=== PATIENT | female | born 1960 | race Caucasian/White ===

== ENCOUNTER 2019-07-30 15:32 | Emergency (ER) | payer OTHER, SELFPAY | END 2019-07-30 19:00 | disposition home or self-care (01) | PROVIDERS: Family Provider Student in an Organized Health Care Education/Training Program | DX: J18.1 Lobar pneumonia, unspecified organism (principal); E86.0 Dehydration; I25.2 Old myocardial infarction; E11.9 Type 2 diabetes mellitus without complications; I10 Essential (primary) hypertension; Z86.73 Personal history of transient ischemic attack (TIA), and cerebral infarction without residual deficits; Z95.1 Presence of aortocoronary bypass graft; Z87.891 Personal history of nicotine dependence | CPT/HCPCS: 36415; 71045; 80053; 81003; 85025; 96365; 96375; 99284; J0696; J1100 ==

== ENCOUNTER 2019-09-02 05:21 | Inpatient (IN) | payer OTHER, SELFPAY ==
[2019-09-02] VITALS (54 sets, daily range): BP systolic 103–164; BP diastolic 59–110; PULSE 89–113; RESP 4–24; TEMP 36.6–37.1; O2SAT 90–100; BMI 38.2
--- NOTE | 2019-09-02 05:35 | XRR_ITS ---
PROCEDURE INFORMATION: Exam: XR Right Tibia and Fibula Exam date and time: 09/02/2019 6:07 AM Age: 59 years old Clinical indication: Injury or trauma; Injury history: Not specified; Initial encounter; Blunt trauma; Lower leg; Right TECHNIQUE: Imaging protocol: XR Right tibia and fibula. Views: 2 views. COMPARISON: No relevant prior studies available. FINDINGS: Bones/joints: Obliquely oriented mildly comminuted fracture involving the distal tibial diaphysis with approximately 1/2 shaft width displacement. Distal fibular diaphyseal fracture with a full shaft width displacement. Comminuted fracture involving the proximal aspect of the fibula and with mild displacement. Soft tissues: Normal. XR/XR tibia fibula RT 2V [id number] IMPRESSION: 1. Obliquely oriented mildly comminuted fracture involving the distal tibial diaphysis with approximately 1/2 shaft width displacement. 2. Distal fibular diaphyseal fracture with a full shaft width displacement. Comminuted fracture involving the proximal aspect of the fibula and with mild displacement.
--- NOTE | 2019-09-02 05:37 | ECG_ITS ---
Measurements Intervals [place] Rate: 94 P: 74 MO: 214 QRS: -6 QRSD: 148 T: 126 QT: 357 QTc: 448 SINUS RHYTHM WITH FIRST DEGREE AV BLOCK INTRAVENTRICULAR CONDUCTION DELAY [130+ ms QRS DURATION] No previous ECG available for comparison Possible old inferior wall [place]. Poor R wave progression. Nonspecific ST-T changes in the high lateral leads Electronically Signed On 09-02-2019 15:44:28 TRAFFIC DIRECTOR by Juliette Gallardo M.D. [email or web address]
--- NOTE | 2019-09-02 05:56 | ED_ITS ---
HPI - Extremity Problem General: Chief complaint: Extremity Injury, Lower Stated complaint: OPEN FRACTURE Time Seen by Provider: 09/02/19 05:28 Source: patient History of Present Illness: HPI Narrative: 59-year-old female who fell at home on her way to the bathroom. She sustained an injury to her right lower extremity. It appears to be an open fracture. She has had some pain medicine in the ambulance with improvement in her pain, but it is still significant. Complaint: extremity pain Onset (ago): minute(s) Location: right Severity scale (1-10): 8 Quality: stabbing Associated symptoms: Deny chest pain, fever(s) or rash Review of Systems Const: Denies: fever or chills Eyes: Denies: change in vision or blurry vision Card: Denies: chest pain, palpitations, irregular heart rhythm, edema, swelling of feet/ankles, shortness of breath on exertion or shortness of breath when lying down Resp: Denies: shortness of breath, productive cough, non-productive cough or wheezing GI: Denies: abdominal pain, nausea, vomiting or rectal pain : Denies: painful urination, urinary frequency, urinary urgency or blood in urine Musc: Denies: neck pain or back pain Skin/Breast: Denies: rash, itching or redness Neuro: Denies: headache, dizziness, vertigo or confusion Psych: Denies: anxiety PFSH ED PFSH: Statuses (acute, chronic, etc) shown below reflect problem list status as previously entered and may not be historically accurate Medical History Atherosclerotic heart disease of [place] coronary artery without angina pectoris (Acute) Chronic back pain (Acute) Coronary artery disease (Acute) CVA (cerebral vascular accident) (Acute) Diabetes mellitus (Acute) DJD (degenerative joint disease) (Acute) Hyperlipidemia (Acute) Hypertension (Acute) Surgical History History of coronary artery bypass graft (Acute) Family History Other CAD (coronary artery disease) Social History Smoking and tobacco status: former smoker Alcohol intake: never Substance/Drug Use: never Physical Exam Const: GENERAL APPEARANCE: well developed ORIENTATION/CONSCIOUSNESS: Yes oriented to person, Yes oriented to place and Yes oriented to time HENMT: COMMON NORMALS: normocephalic, external ears normal and external nose normal HEAD & SCALP: normocephalic; no scalp tenderness FACE & SINUS: normal facial exam NOSE: external nose normal and no nasal discharge EXTERNAL EAR: Yes external ears normal MOUTH: tongue normal THROAT: posterior oropharynx normal Eye: COMMON NORMALS: PERRL, EOMs intact bilaterally and conjunctivae normal EYELID: eyelids normal CONJUNCTIVA: Yes conjunctivae normal PUPIL: Yes PERRL Neck/C-Spine: GENERAL: No tracheal deviation CERVICAL SPINE: Yes normal cervical lordosis and No cervical spine tenderness Chest: COMMONS NORMALS: inspection of chest normal CHEST: No tenderness Resp: COMMON NORMALS: clear to auscultation bilaterally EFFORT & INSPECTION: No tachypneic, No respiratory distress, No retractions, No uses accessory muscles and No tracheal deviation AUSCULTATION: clear to auscultation bilaterally, no rhonchi, no wheezes and lung sounds not diminished Cardio: COMMON NORMALS: regular rate and regular rhythm RATE: regular rate RHYTHM: regular rhythm HEART SOUNDS: no murmurs PERIPHERAL PULSES: radial pulses present GI: INSPECTION: No abdominal distension AUSCULTATION: No hyperactive bowel sounds and No hypoactive bowel sounds PALPATION: No guarding and No rigid PERCUSSION: no dullness to percussion and no tympanic to percussion : COMMON NORMALS: Yes no CVA tenderness BLADDER/KIDNEY EXAM: Yes no CVA tenderness Back/Pelvis: COMMON NORMALS: no CVA tenderness Extremity: NARRATIVE EXTREMITY EXAM: Right lower extremity pain, swelling, and deformity over the distal third of the tibia. There is a 5 cm laceration anteriorly consistent with an open fracture. Neuro: SENSORIUM/ORIENTATION: Yes oriented to person, Yes oriented to place and Yes oriented to time Psych: COMMON NORMALS: mental status grossly normal Skin: COMMON NORMALS: no rashes or lesions noted GENERAL SKIN EXAM: no rashes or lesions noted Course Consultations: Consultation #1: yasmin Consultation #2: elly Vital Signs: Vital signs: Vital Signs Temperature 98 F 09/02/19 09:45 Pulse Rate 105 H 09/02/19 17:45 Respiratory Rate 15 09/02/19 19:16 Blood Pressure 162/88 09/02/19 17:45 Pulse Oximetry 96 09/02/19 19:16 MDM - Extremity (Nontraumatic) Lab Data: Labs: Lab Results 09/02/19 09/02/19 09/02/19 Range/Units 05:35 06:20 06:20 WBC 9.3 (4.0-10.0) 10^3/ uL RBC 3.61 L (4.1-5.3) 10^6/u L Hgb 10.8 L (11.5-15.3) g/dL Hct 34.0 L (37.0-47.0) % MCV 94.2 (81-99) fL MCH 29.9 (28.0-34.0) pg MCHC 31.8 (30.0-36.0) g/dL RDW 15.7 H (12.1-15.1) % Plt Count 150 (130-400) 10^3/c mm MPV 11.0 H (7.4-10.4) fL Neut % (Auto) 78.0 % Lymph % (Auto) 12.6 % Granite % (Auto) 4.5 % Eos % (Auto) 3.8 % Baso % (Auto) 0.9 % Neut # (Auto) 7.2 (1.8-7.7) 10^3/u L Lymph # (Auto) 1.2 (0.8-4.8) 10^3/u L Granite # (Auto) 0.4 (0.2-0.9) 10^3/u L Eos # (Auto) 0.4 (0.0-0.8) 10^3/u L Baso # (Auto) 0.1 (0.0-0.1) 10^3/u L Nucleated RBC % (a uto) 0 % Nucleated RBCs # 0.0 /100WBC PT 14.60 H (10.5-13.3) SECO NDS INR 1.11 (0.8-1.2) APTT 27.3 (23.9-36.7) SECO NDS Sodium (136-145) mmol/L Potassium (3.5-5.1) mmol/L Chloride (98-107) mmol/L Carbon Dioxide (22-29) mmol/L Anion Gap (5-19) BUN (6-20) mg/dL Creatinine (0.5-0.9) mg/dL GFR Calculation (90-130) mL/min Glucose (74-109) mg/dL Calcium (8.5-10.5) mg/dL Total Bilirubin (0.15-1.2) mg/dL AST (0-32) U/L ALT (0-33) U/L Alkaline Phosphata se (35-105) IU/L Total Protein (6.6-8.7) g/dL Albumin (3.5-5.2) g/dL Globulin (1.3-4.6) g/dL Urine Color Yellow (Yellow) Urine Appearance Hazy A (CLEAR) Urine pH 5 (5-7) Ur Specific Gravit y 1.010 (1.005-1.030) Urine Protein Neg (Negative) Urine Glucose (UA) 4+ H (Normal) Urine Ketones 1+ H (Negative) Urine Occult Blood 3+ H (Negative) Urine Nitrate Negative (Negative) Urine Bilirubin 1+ H (NEGATIVE) Urine Urobilinogen Norm (Negative) mg/dL Ur Leukocyte Guerita ase 1+ H (Negative) Urine RBC 10-15 H (0-2) /hpf Urine WBC 55-80 H (0-5) /hpf Ur Squamous Epith Cells 10-15 H (0-5) Urine Bacteria 3+ H (NONE) Hyaline Casts Rare Urine Mucus Trace 09/02/19 Range/Units 06:20 WBC (4.0-10.0) 10^3/ uL RBC (4.1-5.3) 10^6/u L Hgb (11.5-15.3) g/dL Hct (37.0-47.0) % MCV (81-99) fL MCH (28.0-34.0) pg MCHC (30.0-36.0) g/dL RDW (12.1-15.1) % Plt Count (130-400) 10^3/c mm MPV (7.4-10.4) fL Neut % (Auto) % Lymph % (Auto) % Granite % (Auto) % Eos % (Auto) % Baso % (Auto) % Neut # (Auto) (1.8-7.7) 10^3/u L Lymph # (Auto) (0.8-4.8) 10^3/u L Granite # (Auto) (0.2-0.9) 10^3/u L Eos # (Auto) (0.0-0.8) 10^3/u L Baso # (Auto) (0.0-0.1) 10^3/u L Nucleated RBC % (a uto) % Nucleated RBCs # /100WBC PT (10.5-13.3) SECO NDS INR (0.8-1.2) APTT (23.9-36.7) SECO NDS Sodium 132 L (136-145) mmol/L Potassium 7.3 H* (3.5-5.1) mmol/L Chloride 98 (98-107) mmol/L Carbon Dioxide 23 (22-29) mmol/L Anion Gap 18.3 (5-19) BUN 57 H (6-20) mg/dL Creatinine 2.9 H (0.5-0.9) mg/dL GFR Calculation 16.7 L (90-130) mL/min Glucose 323 H (74-109) mg/dL Calcium 9.0 (8.5-10.5) mg/dL Total Bilirubin 0.7 (0.15-1.2) mg/dL AST 36 H (0-32) U/L ALT 14 (0-33) U/L Alkaline Phosphata se 86 (35-105) IU/L Total Protein 7.0 (6.6-8.7) g/dL Albumin 3.8 (3.5-5.2) g/dL Globulin 3.2 (1.3-4.6) g/dL Urine Color (Yellow) Urine Appearance (CLEAR) Urine pH (5-7) Ur Specific Gravit y (1.005-1.030) Urine Protein (Negative) Urine Glucose (UA) (Normal) Urine Ketones (Negative) Urine Occult Blood (Negative) Urine Nitrate (Negative) Urine Bilirubin (NEGATIVE) Urine Urobilinogen (Negative) mg/dL Ur Leukocyte Guerita ase (Negative) Urine RBC (0-2) /hpf Urine WBC (0-5) /hpf Ur Squamous Epith Cells (0-5) Urine Bacteria (NONE) Hyaline Casts Urine Mucus Discharge Plan Discharge Patient Disposition: Admitted As Inpatient Admit Provider: Lisa Gasca Clinical Impression: Fracture of tibia and fibula, open Condition: Stable Interventions: ED Discharge Assessment Last Done: 09/02/19 08:42 Discharge Date/Time: 09/02/19 08:44 Coding Level of Care Code ED Cement Tester Assistant for Brandy Tejada
[2019-09-02] MEDS: HYDROmorphone 1 mg/mL INJ 1 mL IVP ×2 (06:03→22:22)
--- NOTE | 2019-09-02 06:20 | XRR_ITS ---
PROCEDURE INFORMATION: Exam: XR Chest, 1 View Exam date and time: 09/02/2019 6:51 AM Age: 59 years old Clinical indication: Pre-operative exam; Cardiovascular screening and respiratory screening exam; Prior surgery; Surgery date: 6+ months; Surgery type: Cabg; Additional info: Clearance TECHNIQUE: Imaging protocol: XR of the chest Views: 1 view. COMPARISON: CR Chest 1 [place] [id number] 07/30/2019 4:44 PM FINDINGS: Lungs: Lungs are well aerated without a focal area of consolidation. Pleural space: Unremarkable. No pleural effusion. No pneumothorax. Heart/Mediastinum: Unremarkable. No cardiomegaly. Bones/joints: prior sternotomy. XR/XR chest 1V portable [id number] IMPRESSION: Lungs are well aerated without a focal area of consolidation.
[2019-09-02 06:27] LABS: Basophils # 0.1 10^3/uL (0.0-0.1); Basophils % 0.9 %; Eosinophils # 0.4 10^3/uL (0.0-0.8); Eosinophils % 3.8 %; Hemoglobin 10.8 g/dL (11.5-15.3); Lymphocytes # 1.2 10^3/uL (0.8-4.8); Lymphocytes % 12.6 %; Mean Corpuscular HGB Conc 31.8 g/dL (30.0-36.0); Mean Corpuscular Hemoglobin 29.9 pg (28.0-34.0); Mean Corpuscular Volume 94.2 fL (81-99); Monocytes # 0.4 10^3/uL (0.2-0.9); Monocytes % 4.5 %; Neutrophils # 7.2 10^3/uL (1.8-7.7); Nucleated Red Blood Cells % 0 %; Platelet Count 150 10^3/cmm (130-400); Red Blood Count 3.61 10^6/uL (4.1-5.3); Red Cell Distribution Width 15.7 % (12.1-15.1); White Blood Count 9.3 10^3/uL (4.0-10.0)
[2019-09-02 06:36] LABS: INR 1.11 (0.8-1.2)
[2019-09-02 06:37] LABS: Protein Urine Neg (Negative); Urine Appearance Hazy (CLEAR); Urine Color Yellow (Yellow); pH Urine 5 (5-7)
[2019-09-02 06:37] LABS: Partial Thromboplastin Time 27.3 SECONDS (23.9-36.7)
[2019-09-02 06:38] LABS: Add Urine Microscopic? YES; Bilirubin Urine 1+ (NEGATIVE); Blood Urine 3+ (Negative); Glucose Urine UA 4+ (Normal); Ketones Urine 1+ (Negative); Leukocyte Esterase Urine 1+ (Negative); Nitrate Urine Negative (Negative); Urobilinogen Urine Norm (Negative)
[2019-09-02 06:41] LABS: Alanine Aminotransferase 14 U/L (0-33); Albumin Level 3.8 g/dL (3.5-5.2); Alkaline Phosphatase 86 IU/L (35-105); Anion Gap 18.3 (5-19); Aspartate Amino Transferase 36 U/L (0-32); Blood Urea Nitrogen 57 mg/dL (6-20); Carbon Dioxide 23 mmol/L (22-29); Chloride 98 mmol/L (98-107); Globulin 3.2 g/dL (1.3-4.6); Glomerular Filtration Rate 16.7 mL/min (90-130); Glucose 323 mg/dL (74-109); Sodium 132 mmol/L (136-145); Total Bilirubin 0.7 mg/dL (0.15-1.2)
[2019-09-02 06:42] LABS: Potassium 7.3 mmol/L (3.5-5.1)
[2019-09-02 06:42] LABS: Hyaline Casts Urine RARE; Mucus Urine TRACE
[2019-09-02 06:45] LABS: Add Urine Culture? Yes; Bacteria Urine 3+; WBC Urine 55-80 /hpf (0-5)
[2019-09-02 07:26] LABS: Anion Gap 16.6 (5-19); Blood Urea Nitrogen 57 mg/dL (6-20); Calcium 8.9 mg/dL (8.5-10.5); Carbon Dioxide 25 mmol/L (22-29); Chloride 99 mmol/L (98-107); Glomerular Filtration Rate 17.4 mL/min (90-130); Glucose 347 mg/dL (74-109); Osmolality Calculated 288 mOsm/kg (285-295); Sodium 133 mmol/L (136-145)
[2019-09-02] MEDS: morphine 4 mg/mL SDV 1 mL IVP (07:28)
--- NOTE | 2019-09-02 07:42 | P.HP_ITS ---
Providers/Chief Complaint Admitting Physician: Lisa Gasca MD Primary Care Provider: Efrain Campo Chief Complaint: OPEN FRACTURE History of Present Illness Minnie Madrid is a 59 year old female who presented to the emergency department with an open fracture of her right lower extremity. She is received pain medication, which it impairs her history quite a great amount. Son-in-law is present and can supplement this somewhat. Patient reports she was on her way to the bathroom when she fell. She cannot really tell me why but does not believe she lost consciousness. She denies any chest discomfort with the event. She reports she sustained a fracture there but is not sure exactly how. She reports she has frequent falls secondary to her medical conditions. She reports she has had chest discomfort in the past, with her last episode about a month ago. She sees Dr. Gallardo is her small arms repairer and he was intending on a nuclear stress test at some point but this was delayed secondary to a respiratory illness in the last month. She reports no fevers in the last week. She reports no recent changes in her medication. She denies any knowledge of chronic kidney disease or hyperkalemia. Review of Systems General: Reports: 10 or more systems reviewed and unremarkable except in HPI and below Const: Denies: fever Eyes: Denies: change in vision ENMT: Denies: throat pain Card: Denies: chest pain Resp: Denies: shortness of breath GI: Denies: abdominal pain : Denies: flank pain Musc: Denies: neck pain Skin/Breast: Denies: rash Neuro: Denies: headache Psych: Denies: anxiety Endo: Denies: excessive urination Melquiades/Lymph: Denies: easy bruising All/Imm: Denies: hives Medications/Allergies Allergies Allergy/AdvReac Type Severity Reaction Status Date / Time adhesive Allergy Severe ALGY-Hives Verified 09/02/19 05:31 PFSH Acute PFSH: Statuses (acute, chronic, etc) shown below reflect problem list status as previously entered and may not be historically accurate Medical History (Updated 09/02/19 @ 07:58 by Tom Arvizu MD) Chronic back pain (Acute) Coronary artery disease (Acute) CVA (cerebral vascular accident) (Acute) Diabetes mellitus (Acute) DJD (degenerative joint disease) (Acute) Hyperlipidemia (Acute) Hypertension (Acute) Surgical History (Updated 09/02/19 @ 07:53 by Tom Arvizu MD) History of coronary artery bypass graft (Acute) Family History (Updated 09/02/19 @ 07:54 by Tom Arvizu MD) Other CAD (coronary artery disease) Social History (Updated 09/02/19 @ 07:54 by Tom Arvizu MD) Smoking and tobacco status: former smoker Alcohol intake: never Substance/Drug Use: never Vitals/I&O/Wt Last Vital Signs Pulse 98 09/02/19 06:21 Resp 16 09/02/19 07:28 BP 150/84 09/02/19 06:51 Pulse Ox 91 09/02/19 06:03 Weight last 48 hrs Weight 104.326 kg Physical Exam Narrative: EXAM NARRATIVE: General exam is a white female, sleepy secondary to pain medication, who can answer a few questions HEENT: Pupils equally round. Oropharynx clear. Neck is supple no lymphadenopathy or thyromegaly Cardiovascular regular rate and rhythm without murmur Lungs clear no wheezing or crackles Abdomen is soft with positive bowel sounds, obese was deferred Extremities no cyanosis clubbing or edema. Right lower extremity with splint. Cap refill on nail bed intact right lower extremity. Skin no rash on areas I can examine. From what I understand there is an open fracture underneath the splint Neurologic: No obvious focal deficits Urinary Catheter Management^: Russell: Cath Placed During This Visit: no Data : 09/02/19 06:20 09/02/19 07:03 Other data: EKG demonstrates QRS widening, sinus rhythm, borderline left axis deviation, first-degree AV block. Portable chest x-ray is pending Previous echocardiogram July 2016 demonstrated EF of 50% Urinalysis has significant number of squamous but urinary tract infection may be present A&P Assessment and plan (1) Hyperkalemia: Significant elevation. Calcium gluconate, insulin and glucose given in the ER. Will add IV fluids, Kayexalate, repeat potassium 2 hours Status: Acute Code(s): E87.5 - Hyperkalemia (2) Acute kidney injury: Unknown if there is acute on chronic. Will follow closely Status: Acute Code(s): N17.9 - Acute kidney failure, unspecified (3) Tibia and fibula open fracture, right: Orthopedic consultation Status: Acute Code(s): S82.201B - Unspecified fracture of shaft of right tibia, initial encounter for open fracture type I or II; S82.401B - Unspecified fracture of shaft of right fibula, initial encounter for open fracture type I or II (4) Urinary tract infection: Initiate Rocephin Status: Acute Code(s): N39.0 - Urinary tract infection, site not specified (5) Anemia: Follow closely. May be secondary to acute blood loss from open fracture Status: Acute Code(s): D64.9 - Anemia, unspecified Additional A&P Information Type 2 diabetes Hypertension Past history of CVA associated with coronary artery bypass grafting Coronary artery disease, with history of chest discomfort approximately 1 month ago. Nuclear stress test not performed as of yet Hypertension Hyperlipidemia Multiple other medical problems as outlined in past medical history Attestations Medical Necessity Statement*: Will need greater than 2 midnight stay for evaluation and treatment of hyperkalemia, open fracture, UTI, etc. Time Spent in Patient Care: Greater than 35 minutes Coding Level of Care Code Acute Firefighter Marine for Brandy Tejada Diagnoses Hyperkalemia E87.5 Acute kidney injury N17.9 Tibia and fibula open fracture, right S82.201B; S82.401B Urinary tract infection N39.0 Anemia D64.9
[2019-09-02 07:43] LABS: Potassium 7.6 mmol/L (3.5-5.1)
[2019-09-02] MEDS: sodium chloride 0.9% 1,000 ML 999 ML IV (07:44)
[2019-09-02] MEDS: dextrose 50% syringe 50 mL IVP ×2 (07:57→13:36)
[2019-09-02] MEDS: insulin regular-human 10 UNIT in SYRINGE 1 EACH IVP ×3 (07:59→22:23)
[2019-09-02] MEDS: ceFAZolin 1,000 MG in sodium chloride 0.9% (plus) 50 ML 100 MG IV (08:05)
[2019-09-02] MEDS: calcium gluconate 0.1 gm/mL 10% SDV 10mL 1 GM IVP (08:06)
--- NOTE | 2019-09-02 08:22 | PC.NURSE ---
placed in gown.
--- NOTE | 2019-09-02 08:38 | ECG_ITS ---
Measurements Intervals [place] Rate: 96 P: 248 NV: 149 QRS: -27 QRSD: 141 T: 126 QT: 354 QTc: 449 SINUS RHYTHM INTRAVENTRICULAR CONDUCTION DELAY [130+ ms QRS DURATION] INFERIOR MYOCARDIAL INFARCTION , OF INDETERMINATE AGE [40+ ms Q WAVE AND/OR ST/T ABNORMALITY IN II/aVF] Poor R wave progression No previous ECG available for comparison Electronically Signed On 09-02-2019 15:44:05 POLYSOMNOGRAPHER by Juliette Gallardo M.D. [email or web address]
[2019-09-02 09:14] LABS: Troponin(5th) Baseline 86 ng/mL (0-10)
[2019-09-02] MEDS: cefTRIAXone 1,000 MG in sodium chloride 0.9% (plus) 50 ML 100 MG IV (09:18)
[2019-09-02] MEDS: sodium chloride 0.9% 1,000 ML 125 ML IV ×2 (09:18→17:53)
[2019-09-02] MEDS: sodium polystyrene sulfonate 15 gm/60 mL Btl 30 GM PO (09:22)
[2019-09-02 09:44] LABS: Troponin 5 2HR 74.01 ng/mL (0-10)
[2019-09-02 09:58] LABS: Anion Gap 18.7 (5-19); Blood Urea Nitrogen 49 mg/dL (6-20); Calcium 8.9 mg/dL (8.5-10.5); Carbon Dioxide 20 mmol/L (22-29); Chloride 101 mmol/L (98-107); Glomerular Filtration Rate 18.9 mL/min (90-130); Glucose 319 mg/dL (74-109); Osmolality Calculated 288 mOsm/kg (285-295); Potassium 5.7 mmol/L (3.5-5.1); Sodium 134 mmol/L (136-145)
--- NOTE | 2019-09-02 10:02 | P.CONIM_ITS ---
Providers/Reason For Consult Consulting Physican/Specialty*: Sukhjinder Gallardo MD/cardiology Reason for Consult*: History of coronary artery disease, chest pain, preop evaluation Attending Physician: Tom Arvizu MD Primary Care Provider: Efrain Campo History of Present Illness History of Present Illness Minnie Madrid is a 59 year old female with a history of coronary disease, status post coronary bypass surgery, is admitted to hospital with a fracture of the right lower extremity following a fall. She requires semiurgent surgery. She has a history of coronary disease and coronary artery bypass surgery. Cardiology consult is requested for further cardiac evaluation recommendations. Patient is known to have coronary disease and had myocardial infarction 2002. Following this, she had a coronary angiogram and PCI. In 2014, she presented with unstable anginal symptoms. She had a cardiac catheterization followed by two-vessel coronary bypass surgery at that time. The details are not available at this time. According the patient, she has been doing okay . She may have occasional chest pains. The most recent chest pain was couple of months ago. According to the patient the pain subsided spontaneously. Has not had recurrence of chest pain since then. She was seen by me in the office for the first time in July of last year. At that time, she was complaining of some shortness of breath and fatigue. She did not have any chest pain. For further evaluation of her coronary status, she was scheduled for a myocardial perfusion imaging. Apparently this has not been done. She has a history of congestive heart failure, high blood pressure and dyslipidemia. Her LV ejection fraction was around 50% by echocardiogram in 2016. Has not had any echocardiogram in this hospital since then. Review of Systems Narrative: CONSTITUTIONAL: No fever or chills. EYES: No blurring of vision or other visual disturbances lately. ENT: No hoarseness of voice, auditory disturbances or sore throat. CARDIOVASCULAR: As mentioned above. RESPIRATORY: Dyspnea on exertion. GASTROINTESTINAL: No hematemesis or melena. GENITOURINARY: No dysuria or hematuria. INTEGUMENTARY: No skin rashes or history of skin cancer. NEURO: No transient ischemic attacks or amaurosis. PSYCHIATRIC: No history of psychosis or major depression. HEMATOLOGIC: No bleeding disorders or significant anemia. ENDOCRINE: No history of polyuria or polydipsia. MUSCULOSKELETAL: Right lower extremity fracture as mentioned above ALLERGY/IMMUNOLOGY: As mentioned above. Meds/Allergies Home Medications and Allergies Home Medications Medication Instructions Recorded Confirmed Type aspirin 325 mg PO DAILY 09/02/19 09/02/19 History furosemide 20 mg PO DAILY 09/02/19 09/02/19 History insulin glargine [Lantus Solostar 90 unit SUBCUT BID 09/02/19 09/02/19 History U-100 Insulin] losartan-hydrochlorothiazide 1 tab PO BID 09/02/19 09/02/19 History magnesium oxide 500 mg PO DAILY 09/02/19 09/02/19 History meloxicam 15 mg PO DAILY 09/02/19 09/02/19 History metoprolol succinate 100 mg PO DAILY 09/02/19 09/02/19 History oxycodone 15 mg PO Q6H PRN 09/02/19 09/02/19 History pravastatin 40 mg PO BEDTIME 09/02/19 09/02/19 History pregabalin 200 mg PO BID 09/02/19 09/02/19 History spironolactone 25 mg PO DAILY 09/02/19 09/02/19 History tizanidine 8 mg PO BEDTIME 09/02/19 09/02/19 History Allergies Allergy/AdvReac Type Severity Reaction Status Date / Time adhesive Allergy Severe ALGY-Hives Verified 09/02/19 05:31 Current Medications Current Medications Generic Name Dose Route Start Last Admin Trade Name Freq PRN Reason Stop Dose Admin Sodium Chloride 1,000 mls @ 125 mls/hr 09/02/19 08:20 09/02/19 09:18 Sodium Chloride 0.9% IV 125 mls/hr .Q8H RON Administration Ceftriaxone Sodium 1,000 mg/ 50 mls @ 100 mls/hr 09/02/19 09:30 09/02/19 09:18 Sodium Chloride IV 100 mls/hr Q24H RON Administration Protocol Current Medications Sodium Chloride (Sodium Chloride 0.9%) 1,000 mls @ 125 mls/hr IV .Q8H RON Last Admin: 09/02/19 09:18 Dose: 125 mls/hr Documented by: Ceftriaxone Sodium 1,000 mg/ (Sodium Chloride) 50 mls @ 100 mls/hr IV Q24H RON; Protocol Last Admin: 09/02/19 09:18 Dose: 100 mls/hr Documented by: Morphine Sulfate (Morphine) 4 mg IVP Q2H PRN PRN Reason: SEVERE PAIN Morphine Sulfate (Morphine) 2 mg IVP Q4H PRN PRN Reason: SEVERE PAIN Ondansetron HCl (Zofran) 4 mg IVP Q6H PRN PRN Reason: NAUSEA AND VOMITING Ondansetron HCl (Zofran) 4 mg IVP Q4H PRN PRN Reason: vomiting, or N/V if npo PFSH Acute PFSH: Statuses (acute, chronic, etc) shown below reflect problem list status as previously entered and may not be historically accurate Medical History Atherosclerotic heart disease of [place] coronary artery without angina pectoris (Acute) Chronic back pain (Acute) Coronary artery disease (Acute) CVA (cerebral vascular accident) (Acute) Diabetes mellitus (Acute) DJD (degenerative joint disease) (Acute) Hyperlipidemia (Acute) Hypertension (Acute) Surgical History History of coronary artery bypass graft (Acute) Family History Other CAD (coronary artery disease) Social History Smoking and tobacco status: former smoker Alcohol intake: never Substance/Drug Use: never Vitals/I&O/Wt Last Vital Signs Temp 98.3 F 09/02/19 08:42 Pulse 106 H 09/02/19 08:42 Resp 16 09/02/19 08:42 BP 115/91 09/02/19 08:42 Pulse Ox 96 09/02/19 08:42 09/01/19 09/02/19 09/02/19 22:59 06:59 14:59 Output Total 680 / 680 Balance -680 / -680 Weight last 48 hrs Weight 254 lb 14.4 oz Weight 230 lb Physical Exam Narrative: EXAM NARRATIVE: GENERAL: The patient is alert and oriented to place and person. Appears to be somewhat drowsy. Not in any acute distress. Morbidly obese HEENT: Mild pallor, no icterus or lymphadenopathy. The pupils are reactant to light. Oral cavity: There are no mucous membrane lesions. Funduscopic examina tion: The disk margins appear to be sharp with no exudates or hemorrhages. NECK: Trachea appears to be central. No masses noted. No JVD or thyromegaly appreciated. No carotid bruit. RESPIRATORY: Chest is symmetrical. No intercostals muscle retraction or any accessory muscle activation. There is no chest wall tenderness. Breath sounds are heard bilaterally. No rales or rhonchi heard. No evidence of any consolidation. BREASTS: Deferred. HEART: The PMI could not be palpated. No other palpable precordial events. The first and second heart sounds are normal. No S3. No significant murmurs. No p ericardial rub. ABDOMEN: No vessel pulsations or distention. No tenderness. No organomegaly appreciated. No abdominal bruit. Bowel sounds are normally heard. : Deferred. RECTAL: Deferred. LYMPHATIC: No lymphadenopathy noted in the neck or groin. EXTREMITIES: The right leg is bandaged and immobilized. Pulses are good volume and amplitude in the other extremities MUSCULOSKELETAL: As mentioned above SKIN: There are no significant scars or skin rash noted. NEUROPSYCHIATRIC: The patient is alert and oriented x2. Appears to be in a good mood. The higher functions are grossly within normal limits. No tremors or rigidity noted. Urinary Catheter Management^: Russell: Cath Placed During This Visit: no Data Labs: Other Labs: Abnormal lab results 09/02/19 09/02/19 09/02/19 Range/Units 05:35 06:20 06:20 RBC 3.61 L (4.1-5.3) 10^6/u L Hgb 10.8 L (11.5-15.3) g/dL Hct 34.0 L (37.0-47.0) % RDW 15.7 H (12.1-15.1) % MPV 11.0 H (7.4-10.4) fL PT 14.60 H (10.5-13.3) SECO NDS Sodium (136-145) mmol/L Potassium (3.5-5.1) mmol/L Carbon Dioxide (22-29) mmol/L BUN (6-20) mg/dL Creatinine (0.5-0.9) mg/dL GFR Calculation (90-130) mL/min Glucose (74-109) mg/dL AST (0-32) U/L Troponin T Baselin e (0-10) ng/mL Troponin T 120 Min [place] (0-10) ng/mL Delta Troponin T (0-10) ABS# Urine Appearance Hazy A (CLEAR) Urine Glucose (UA) 4+ H (Normal) Urine Ketones 1+ H (Negative) Urine Occult Blood 3+ H (Negative) Urine Bilirubin 1+ H (NEGATIVE) Ur Leukocyte Guerita ase 1+ H (Negative) Urine RBC 10-15 H (0-2) /hpf Urine WBC 55-80 H (0-5) /hpf Ur Squamous Epith Cells 10-15 H (0-5) Urine Bacteria 3+ H (NONE) 09/02/19 09/02/19 09/02/19 Range/Units 06:20 07:03 07:03 RBC (4.1-5.3) 10^6/u L Hgb (11.5-15.3) g/dL Hct (37.0-47.0) % RDW (12.1-15.1) % MPV (7.4-10.4) fL PT (10.5-13.3) SECO NDS Sodium 132 L 133 L (136-145) mmol/L Potassium 7.3 H* 7.6 H* (3.5-5.1) mmol/L Carbon Dioxide (22-29) mmol/L BUN 57 H 57 H (6-20) mg/dL Creatinine 2.9 H 2.8 H (0.5-0.9) mg/dL GFR Calculation 16.7 L 17.4 L (90-130) mL/min Glucose 323 H 347 H (74-109) mg/dL AST 36 H (0-32) U/L Troponin T Baselin e 86 H (0-10) ng/mL Troponin T 120 Min [place] (0-10) ng/mL Delta Troponin T (0-10) ABS# Urine Appearance (CLEAR) Urine Glucose (UA) (Normal) Urine Ketones (Negative) Urine Occult Blood (Negative) Urine Bilirubin (NEGATIVE) Ur Leukocyte Guerita ase (Negative) Urine RBC (0-2) /hpf Urine WBC (0-5) /hpf Ur Squamous Epith Cells (0-5) Urine Bacteria (NONE) 09/02/19 09/02/19 Range/Units 09:10 09:10 RBC (4.1-5.3) 10^6/u L Hgb (11.5-15.3) g/dL Hct (37.0-47.0) % RDW (12.1-15.1) % MPV (7.4-10.4) fL PT (10.5-13.3) SECO NDS Sodium 134 L (136-145) mmol/L Potassium 5.7 H (3.5-5.1) mmol/L Carbon Dioxide 20 L (22-29) mmol/L BUN 49 H (6-20) mg/dL Creatinine 2.6 H (0.5-0.9) mg/dL GFR Calculation 18.9 L (90-130) mL/min Glucose 319 H (74-109) mg/dL AST (0-32) U/L Troponin T Baselin e (0-10) ng/mL Troponin T 120 Min [place] 74.01 H (0-10) ng/mL Delta Troponin T -11.99 L (0-10) ABS# Urine Appearance (CLEAR) Urine Glucose (UA) (Normal) Urine Ketones (Negative) Urine Occult Blood (Negative) Urine Bilirubin (NEGATIVE) Ur Leukocyte Guerita ase (Negative) Urine RBC (0-2) /hpf Urine WBC (0-5) /hpf Ur Squamous Epith Cells (0-5) Urine Bacteria (NONE) Imaging^: CXR: My impression: Borderline cardiomegaly with no lung infiltrate. No acute pathology noted. EKG^: EKG 1: My Interpretation: Normal sinus rhythm with poor R wave progression. Features of old anteroseptal NJ. Features of old inferior wall NJ. Nonspecific ST-T changes in the high lateral leads A&P Assessment and plan (1) Atherosclerotic heart disease of [place] coronary artery without angina pec toris: Patient does not have any specific symptoms of coronary insufficiency at this time. She had a two-vessel coronary artery bypass surgery in 2015. Her LV ejection fraction was around 50% by echocardiogram in 2016. We may do a repeat echocardiogram to reevaluate the LV ejection fraction and rule out any other pathology. In the meanwhile, she may continue on the current medications. Status: Acute Qualifiers: [place] vs. transplanted heart: [place] heart Qualified Code(s): I25.10 - Atherosclerotic heart disease of [place] coronary artery without angina pectoris Code(s): I25.10 - Atherosclerotic heart disease of [place] coronary artery without angina pectoris (2) Elevated troponin: Most likely this is related to type II NJ. She has no evidence of any acute myocardial injury. No specific cardiac symptoms at this time. We may do a repeat echocardiogram to evaluate the LV function and rule out other pathology. Status: Acute Code(s): R79.89 - Other specified abnormal findings of blood chemistry (3) Acute kidney injury: Patient apparently has a history of chronic knee disease. She has a clinical features of acute on chronic kidney disease possibly from the myonecrosis Status: Acute Code(s): N17.9 - Acute kidney failure, unspecified (4) Tibia and fibula open fracture, right: Management as per the orthopedic service Status: Acute Qualifiers: Encounter type: initial encounter Open fracture type: open type I or II Qualified Code(s): S82.201B - Unspecified fracture of shaft of right tibia, initial encounter for open fracture type I or II; S82.401B - Unspecified fracture of shaft of right fibula, initial encounter for open fracture type I or II Code(s): S82.201B - Unspecified fracture of shaft of right tibia, initial encounter for open fracture type I or II; S82.401B - Unspecified fracture of shaft of right fibula, initial encounter for open fracture type I or II Additional A&P Information Her other problems are #1 history of LV dysfunction #2 essential benign hypertension, currently normotensive #3 dyslipidemia Based on the results of the above test and also the patient's clinical progress, further recommendations will be made. Thank you for the opportunity to evaluate this patient and make these recommendations Consult Attestations Medical Necessity Statement: Patient requires continued hospital stay for close monitoring and further management Coding Level of Care Code Acute Blackjack Pit Boss for Brandy Fwadrienne Diagnoses Atherosclerotic heart disease of [place] coronary artery without angina pectoris I25.10 [place] vs. transplanted heart: [place] heart Elevated troponin R79.89 Acute kidney injury N17.9 Tibia and fibula open fracture, right S82.201B; S82.401B Encounter type: initial encounter Open fracture type: open type I or II
--- NOTE | 2019-09-02 10:22 | PC.NURSE ---
PATIENT'S SON IN ROOM. PATIENT STATES THAT SHE HAS HAD KIDNEY PROBLEMS IN THE PAST WHEN SHE DOESN'T DRINK ENOUGH FLUIDS. THIS WAS CONFIRMED BY HER SON. PATIENT STATES SHE HAS HAD FLU AND PNEUMONIA IN THE PAST MONTH AND HASN'T BEEN DRINKING ENOUGH FLUIDS SINCE THEN. THIS STATEMENT WAS ALSO CONFIRMED BY THE SON.
--- NOTE | 2019-09-02 10:25 | USCV_ITS ---
Minnie Madrid Age: 59 Gender: F : 1960 Exam Date: 09/02/2019 10:38 Ordering Phys: Juliette Gallardo MD ([email or web address]) Technologist: Veena Perrin [place] [facility] [place]: OPEN FX OF LEG. GOING TO SURGERY BP: / HR: 105 Rhythm: Sinus Technical Quality: TDS Pt has compound fx leg MEASUREMENTS (Male / Female) Normal Values 2D ECHO LV Diastolic Diameter PLAX 3.0 cm 4.2 - 5.9 / 3.9 - 5.3 cm LV Systolic Diameter PLAX 3.2 cm LV Chamber Size 4.6 cm IVS Diastolic Thickness 1.8 cm 0.6 - 1.0 / 0.6 - 0.9 cm IVS Systolic Thickness 2.1 cm LVPW Diastolic Thickness 1.8 cm 0.6 - 1.0 / 0.6 - 0.9 cm LVPW Systolic Thickness 1.9 cm RV Chamber Size 3.3 cm LVOT Diameter 2.0 cm LV Ejection Fraction 2D Teich 11.5 % LA Diameter 5.0 cm LA Width 3.7 cm LA Height 4.4 cm RA Width 4.2 cm RA Height 4.6 cm Aorta at Sinotubular Diameter 3.4 cm M-MODE LV Diastolic Diameter MM 5.3 cm 4.2 - 5.9 / 3.9 - 5.3 cm LV Systolic Diameter MM 3.6 cm LV Ejection Fraction MM Teich 60.0 % IVS Diastolic Thickness MM 1.5 cm 0.6 - 1.0 / 0.6 - 0.9 cm IVS Systolic Thickness MM 1.8 cm LVPW Diastolic Thickness MM 1.1 cm 0.6 - 1.0 / 0.6 - 0.9 cm LVPW Systolic Thickness MM 2.1 cm RV Diastolic Diameter MM 3.8 cm Aortic Annulus Diameter 3.6 cm LA Ao Ratio MM 1.4 MV E Point Septal Separation 0.8 cm DOPPLER AV Peak Velocity 155.0 cm/s LVOT Peak Velocity 78.0 cm/s AV Area Cont Eq vti 2.2 cm squared AV Area Cont Eq pk 1.6 cm squared MV Area PHT 6.9 cm squared Mitral E to A Ratio 1.8 MV E' Velocity 11.0 cm/s Mitral E to MV E' Ratio 6.5 Mitral E to LV E' Lateral Ratio 7.5 Mitral E to LV E' Septal Ratio 5.7 TR Peak Velocity 166.1 cm/s TR Peak Gradient 11.0 mmHg TR Mean Velocity 123.4 cm/s TR Mean Gradient 6.9 mmHg TR Velocity Time Integral 35.0 cm TV Peak E Velocity 69.0 cm/s Right Atrial Pressure 3.0 mmHg Pulmonary Artery Systolic Pressu 14.0 mmHg PV Peak Velocity 121.0 cm/s RV Acceleration Time 0.1 s RV Ejection Time 0.3 s RV AcT/ET 0.4 FINDINGS Left Ventricle Moderate hypokinesia of the basal and mid septum and anteroseptal segments. LV ejection fraction around 50%. Right Ventricle Possibly of normal size ejection fraction. Not visualized well Right Atrium Right atrium not well visualized. Left Atrium Mildly increased left atrial size. Mitral Valve Moderate mitral annular calcification. Thickened mitral valve. Aortic Valve Thickened aortic valve. Tricuspid Valve Tricuspid valve not well visualized. Pulmonic Valve Pulmonic valve not well visualized. Pericardium No pericardial effusion. Aorta Normal aortic annulus size. CONCLUSIONS Normal LV size with a slightly diminished ejection fraction of around 50%. Wall motion normalities as mentioned above. Mildly increased left atrial size. Moderate mitral annular calcification. Thickened mitral valve. There is no pericardial effusion. Technically difficult study because of the poor ultrasonic window. Comparison with the previous study is difficult because of the difference in the technical quality. Dr Juliette Gallardo MD [facility] (Electronically Signed) Final Date: 02 September 2019 15:30 S
--- NOTE | 2019-09-02 10:38 | ECG_ITS ---
Measurements Intervals [place] Rate: 95 P: 76 WI: 203 QRS: -23 QRSD: 130 T: 133 QT: 352 QTc: 444 SINUS RHYTHM ANTERIOR MYOCARDIAL INFARCTION [40+ ms Q WAVE AND/OR ST/T ABNORMALITY IN V3/V4], OF INDETERMINATE AGE INFERIOR MYOCARDIAL INFARCTION [40+ ms Q WAVE AND/OR ST/T ABNORMALITY IN II/aVF], OF INDETERMINATE AGE No previous ECG available for comparison Electronically Signed On 09-03-2019 21:03:23 CREAM DIPPER by Juliette Gallardo M.D. [email or web address]
--- NOTE | 2019-09-02 11:54 | PC.CHAP ---
Pastoral Care Encounter/Spiritual Assessment Type of Contact [] Declined rubber roller grinder visit [] Patient/Family/Request visit [] Outpatient visit [] Follow-up visit [] Physician referral [] Code/Alert [] Routine visit [] Staff referral [] Actively dying [x] Patient sleeping [] Family support [] [] Out of room [] Palliative care [] [] Receiving care in room [] Pre-surgical visit [] Trauma [] Long length of stay [] ICU visit [] Other: Relational/Emotional Strength [] Patient feels connected with others/family/visitors/staff [] Distress [] Loneliness/isolation [] Abandonment Spirituality of Patient [] Person of Ankita [] Attends Cheondoism of their Ankita [] Believes in Prayer [] Reads Bible or Methodist materials [] There are Spiritual issues to be addressed Staff Training And Development Manager Interventions [] Prayer [] Active listening [] Non-anxious presence [] Spiritual/emotional support [] Crisis/trauma care [] Spiritual counseling [] Bereavement support [] Provided bereavement packet [] Provided Bible/devotional materials [] Provided toy/stuffed animal, coloring book to patient or family member [] Provided Communion [] Anointing/[place] [] Salvation [] Completed spiritual assessment [] Other: Impact on Illness or Injury [] Angry [] Fearful [] Anxious [] Often cries [] Exhaustion [] Unable to work [] Unable to attend latter day [] Unable to walk/stand [] Unable to read [] Unable to drive [] Unable to eat/drink [] Unable to sleep [] Unable to be with family [] Patient intubated [] Other: Summary pt.sleeping, will need follow up visit. Time spent with patient 5 min.
[2019-09-02 12:56] LABS: Anion Gap 15.3 (5-19); Blood Urea Nitrogen 46 mg/dL (6-20); Calcium 9.1 mg/dL (8.5-10.5); Carbon Dioxide 24 mmol/L (22-29); Chloride 101 mmol/L (98-107); Glomerular Filtration Rate 20.7 mL/min (90-130); Glucose 309 mg/dL (74-109); Osmolality Calculated 288 mOsm/kg (285-295); Potassium 6.3 mmol/L (3.5-5.1); Sodium 134 mmol/L (136-145)
[2019-09-02 13:03] LABS: Creatine Phosphokinase 1025 U/L (26-192)
[2019-09-02 13:34] LABS: Troponin 5 6HR 74.05 ng/L (0-10)
[2019-09-02] MEDS: sodium polystyrene sulfonate 15 gm/60 mL Btl PO ×2 (13:36→19:16)
[2019-09-02 13:42] LABS: Troponin 5 6HR Delta -11.95 ng/L (0-12)
--- NOTE | 2019-09-02 13:44 | PM.EVENT ---
Event Note Event Note: Potassium level still elevated. We will continue to address this, and likely do surgery tomorrow morning. There is too great of a risk, even with open fracture, undergoing anesthesia for surgery with severe hyperkalemia at this time.
[2019-09-02] MEDS: morphine 4 mg/mL SDV 1 mL 2 MG IVP ×3 (13:58→23:47)
--- NOTE | 2019-09-02 14:38 | ECG_ITS ---
Measurements Intervals [place] Rate: 99 P: 57 [place]: 211 QRS: -27 QRSD: 126 T: 133 QT: 334 QTc: 430 SINUS RHYTHM WITH SINUS ARRHYTHMIA WITH FIRST DEGREE AV BLOCK ANTERIOR MYOCARDIAL INFARCTION [40+ ms Q WAVE AND/OR ST/T ABNORMALITY IN V3/V4], OF INDETERMINATE AGE INFERIOR MYOCARDIAL INFARCTION [40+ ms Q WAVE AND/OR ST/T ABNORMALITY IN II/aVF], OF INDETERMINATE AGE ST DEVIATION AND MODERATE T-WAVE ABNORMALITY, CONSIDER LATERAL ISCHEMIA [-0.1+ mV T WAVE IN I/aVL/V5/V6] No previous ECG available for comparison Electronically Signed On 09-03-2019 21:03:33 SUPERVISOR LE[employer]ING REPAIR by Juliette Gallardo M.D. [id number]
--- NOTE | 2019-09-02 14:39 | P.ANESASSM_ITS ---
Pre-Anesthetic Assessment Pre-Anesthetic Assessment: Height/Weight: Height 1.65 m Weight 115.621 kg Temp Pulse Resp BP Pulse Ox 98 F 101 H 11 L 129/66 97 09/02/19 09:45 09/02/19 12:15 09/02/19 13:58 09/02/19 12:15 09/02/19 13:58 Proposed Procedure: Operation Date: 09/02/19 15:20 Proposed Procedures p ORIF Tibia/Fibula Intermedullary Nailing(Right) - Lisa Gasca MD Familial anesthetic complications: None Was Beta Mgiuel taken within 24 hours: Yes Last intake: NPO > 8 hrs Social: Social History: No alcohol and No tobacco Exam: Pre-Anes Outpt Exam: alert, oriented x 3, clear to auscultation bilaterally and regular rate & rhythm Additional Exam Findings (including area of procedure): tachycardia Airway: Cervical ROM: WNL MP: 4 Dentition: Chipped Additional comments: missing and front tooth stained/ dying Pulmonary: Pulmonary: Asthma (hasn't required any treatment for years) and SOB CV/HEM: CV/HEM: Angina (Stable), CAD and HTN Comments: Hyperkalemia, HX of CABG, patient states she has chest pain with emotional duress, but not activity. however, activity can make her dizzy. She thinks this is related to her back. She was supposed to see a cardiology in a couple of months : Comments: GUNJAN Hepatic: Hepatic: None reported GI: GI: GERD Metabolic: Metabolic: DM and Morbid obesity Musc/skel: Musc/skel: Lower Back Pain Neuropsych: Neuropsych: CVA Comments: 2 strokes (one affecting speech, second affect vision) Anesthetic Plan: ASA status: IV Anesthesia: General and Regional (specify below) Meds/Allergies Current Medications: Current Medications Generic Name Dose Route Start Last Admin Trade Name Freq PRN Reason Stop Dose Admin Sodium Chloride 1,000 mls @ 125 m ls/hr 09/02/19 08:20 09/02/19 09:18 Sodium Chloride 0.9% IV 125 mls/hr .Q8H RON Administration Ceftriaxone Sodium 1,000 mg/ 50 mls @ 100 mls/ hr 09/02/19 09:30 09/02/19 14:05 Sodium Chloride IV Infused Q24H RON Infusion Protocol Morphine Sulfate 2 mg 09/02/19 08:20 09/02/19 13:58 Morphine IVP 2 mg Q4H PRN Administration SEVERE PAIN PFSH Anesthesia PFSH: Medical History Atherosclerotic heart disease of [place] coronary artery without angina pectoris (Acute) Chronic back pain (Acute) Coronary artery disease (Acute) CVA (cerebral vascular accident) (Acute) Diabetes mellitus (Acute) DJD (degenerative joint disease) (Acute) Hyperlipidemia (Acute) Hypertension (Acute) Surgical History History of coronary artery bypass graft (Acute) Family History Other CAD (coronary artery disease) Social History Smoking and tobacco status: former smoker Alcohol intake: never Substance/Drug Use: never Data Anesthesia CBC & Chem 7: 09/02/19 06:20 09/02/19 12:25 Other Labs: Laboratory Results - last 48 hr 09/02/19 09/02/19 09/02/19 05:35 06:20 06:20 WBC 9.3 RBC 3.61 L Hgb 10.8 L Hct 34.0 L MCV 94.2 MCH 29.9 MCHC 31.8 RDW 15.7 H Plt Count 150 MPV 11.0 H Neut % (Auto) 78.0 Lymph % (Auto) 12.6 [place] % (Auto) 4.5 Eos % (Auto) 3.8 Baso % (Auto) 0.9 Neut # (Auto) 7.2 Lymph # (Auto) 1.2 [place] # (Auto) 0.4 Eos # (Auto) 0.4 Baso # (Auto) 0.1 Nucleated RBC % (auto) 0 Nucleated RBCs # 0.0 PT 14.60 H INR 1.11 APTT 27.3 Sodium Potassium Chloride Carbon Dioxide Anion Gap BUN Creatinine GFR Calculation Glucose Calculated Osmolality Calcium Total Bilirubin AST ALT Alkaline Phosphatase Creatine Kinase Troponin I 6 Hour Troponin I Hi Sens Del Troponin T Baseline Troponin T 120 Minute Delta Troponin T Total Protein Albumin Globulin Urine Color Yellow Urine Appearance Hazy A Urine pH 5 Ur Specific [place] 1.010 Urine Protein Neg Urine Glucose (UA) 4+ H Urine Ketones 1+ H Urine Occult Blood 3+ H Urine Nitrate Negative Urine Bilirubin 1+ H Urine Urobilinogen Norm Ur Leukocyte Esterase 1+ H Urine RBC 10-15 H Urine WBC 55-80 H Ur Squamous Epith Cells 10-15 H Urine Bacteria 3+ H Hyaline Casts Rare Urine Mucus Trace 09/02/19 09/02/19 09/02/19 06:20 07:03 07:03 WBC RBC Hgb Hct MCV MCH MCHC RDW Plt Count MPV Neut % (Auto) Lymph % (Auto) [place] % (Auto) Eos % (Auto) Baso % (Auto) Neut # (Auto) Lymph # (Auto) [place] # (Auto) Eos # (Auto) Baso # (Auto) Nucleated RBC % (auto) Nucleated RBCs # PT INR APTT Sodium 132 L 133 L Potassium 7.3 H* 7.6 H* Chloride 98 99 Carbon Dioxide 23 25 Anion Gap 18.3 16.6 BUN 57 H 57 H Creatinine 2.9 H 2.8 H GFR Calculation 16.7 L 17.4 L Glucose 323 H 347 H Calculated Osmolality 288 Calcium 9.0 8.9 Total Bilirubin 0.7 AST 36 H ALT 14 Alkaline Phosphatase 86 Creatine Kinase Troponin I 6 Hour Troponin I Hi Sens Del Troponin T Baseline 86 H Troponin T 120 Minute Delta Troponin T Total Protein 7.0 Albumin 3.8 Globulin 3.2 Urine Color Urine Appearance Urine pH Ur Specific [place] Urine Protein Urine Glucose (UA) Urine Ketones Urine Occult Blood Urine Nitrate Urine Bilirubin Urine Urobilinogen Ur Leukocyte Esterase Urine RBC Urine WBC Ur Squamous Epith Cells Urine Bacteria Hyaline Casts Urine Mucus 09/02/19 09/02/19 09/02/19 09:10 09:10 12:25 WBC RBC Hgb Hct MCV MCH MCHC RDW Plt Count MPV Neut % (Auto) Lymph % (Auto) [place] % (Auto) Eos % (Auto) Baso % (Auto) Neut # (Auto) Lymph # (Auto) [place] # (Auto) Eos # (Auto) Baso # (Auto) Nucleated RBC % (auto) Nucleated RBCs # PT INR APTT Sodium 134 L 134 L Potassium 5.7 H 6.3 H Chloride 101 101 Carbon Dioxide 20 L 24 Anion Gap 18.7 15.3 BUN 49 H 46 H Creatinine 2.6 H 2.4 H GFR Calculation 18.9 L 20.7 L Glucose 319 H 309 H Calculated Osmolality 288 288 Calcium 8.9 9.1 Total Bilirubin AST ALT Alkaline Phosphatase Creatine Kinase 1025 H* Troponin I 6 Hour Troponin I Hi Sens Del Troponin T Baseline Troponin T 120 Minute 74.01 H Delta Troponin T -11.99 L Total Protein Albumin Globulin Urine Color Urine Appearance Urine pH Ur Specific [place] Urine Protein Urine Glucose (UA) Urine Ketones Urine Occult Blood Urine Nitrate Urine Bilirubin Urine Urobilinogen Ur Leukocyte Esterase Urine RBC Urine WBC Ur Squamous Epith Cells Urine Bacteria Hyaline Casts Urine Mucus 09/02/19 13:01 WBC RBC Hgb Hct MCV MCH MCHC RDW Plt Count MPV Neut % (Auto) Lymph % (Auto) [place] % (Auto) Eos % (Auto) Baso % (Auto) Neut # (Auto) Lymph # (Auto) [place] # (Auto) Eos # (Auto) Baso # (Auto) Nucleated RBC % (auto) Nucleated RBCs # PT INR APTT Sodium Potassium Chloride Carbon Dioxide Anion Gap BUN Creatinine GFR Calculation Glucose Calculated Osmolality Calcium Total Bilirubin AST ALT Alkaline Phosphatase Creatine Kinase Troponin I 6 Hour 74.05 H Troponin I Hi Sens Del -11.95 L Troponin T Baseline Troponin T 120 Minute Delta Troponin T Total Protein Albumin Globulin Urine Color Urine Appearance Urine pH Ur Specific [place] Urine Protein Urine Glucose (UA) Urine Ketones Urine Occult Blood Urine Nitrate Urine Bilirubin Urine Urobilinogen Ur Leukocyte Esterase Urine RBC Urine WBC Ur Squamous Epith Cells Urine Bacteria Hyaline Casts Urine Mucus Cardiac Studies: No Data to Display
[2019-09-02 14:58] LABS: CKMB 7.6 ng/mL (0-5.34); CKMB Relative Index 0.7 % (0.0-10.4)
--- NOTE | 2019-09-02 15:01 | PM.CONSULT ---
Providers/Reason For Consult Consulting Physican/Specialty*: Lisa Gasca MD - Orthopedics Reason for Consult*: Open right distal tibia fracture Requesting Physcian: Dr. Camilo Salazar - Emergency department, Dr. Tom Arvizu - Hospitalist Attending Physician: Tom Arvizu MD Primary Care Provider: Efrain Campo History of Present Illness History of Present Illness Minnie Madrid is a 59 year old female who was in her usual state of health until she fell while on her way to the bathroom earlier this morning. She presented to the emergency department with complaints of right lower extremity pain. She was found to have an open distal third tibia fracture. This appeared to be an inside out type of fracture. The patient is unsure as to why she fell while on her way to the bathroom. She did not feel that she lost consciousness and denied any other symptoms such as chest pain as a cause of her fall. She does report she falls frequently secondary to her multiple medical conditions. Over the past month, she was scheduled to have a stress test but this was delayed secondary to a respiratory illness. She also has history of previous coronary artery bypass surgery. Review of Systems Const: Denies: fever or chills Eyes: Denies: change in vision Card: Denies: chest pain or shortness of breath on exertion Resp: Denies: shortness of breath or productive cough GI: Denies: abdominal pain Musc: Reports: extremity pain (Right lower extremity secondary to fracture) Skin/Breast: Denies: redness or changes in skin color Neuro: Denies: numbness in extremities Psych: Denies: anxiety or depression Mel[place]ades/Lymph: Denies: easy bruising or easy bleeding Meds/Allergies Home Medications and Allergies Home Medications Medication Instructions Recorded Confirmed Type aspirin 325 mg PO DAILY 09/02/19 09/02/19 History furosemide 20 mg PO DAILY 09/02/19 09/02/19 History insulin glargine [Lantus Solostar 90 unit SUBCUT BID 09/02/19 09/02/19 History U-100 Insulin] losartan-hydrochlorothiazide 1 tab PO BID 09/02/19 09/02/19 History magnesium oxide 500 mg PO DAILY 09/02/19 09/02/19 History meloxicam 15 mg PO DAILY 09/02/19 09/02/19 History metoprolol succinate 100 mg PO DAILY 09/02/19 09/02/19 History oxycodone 15 mg PO Q6H PRN 09/02/19 09/02/19 History pravastatin 40 mg PO BEDTIME 09/02/19 09/02/19 History pregabalin 200 mg PO BID 09/02/19 09/02/19 History spironolactone 25 mg PO DAILY 09/02/19 09/02/19 History tizanidine 8 mg PO BEDTIME 09/02/19 09/02/19 History Allergies Allergy/AdvReac Type Severity Reaction Status Date / Time adhesive Allergy Severe ALGY-Hives Verified 09/02/19 05:31 Current Medications Current Medications Generic Name Dose Route Start Last Admin Trade Name Freq PRN Reason Stop Dose Admin Sodium Chloride 1,000 mls @ 125 mls/hr 09/02/19 08:20 09/02/19 09:18 Sodium Chloride 0.9% IV 125 mls/hr .Q8H RON Administration Ceftriaxone Sodium 1,000 mg/ 50 mls @ 100 mls/hr 09/02/19 09:30 09/02/19 14:05 Sodium Chloride IV Infused Q24H RON Infusion Protocol Morphine Sulfate 2 mg 09/02/19 08:20 09/02/19 13:58 Morphine IVP 2 mg Q4H PRN Administration SEVERE PAIN PFSH Acute PFSH: Statuses (acute, chronic, etc) shown below reflect problem list status as previously entered and may not be historically accurate Medical History Atherosclerotic heart disease of [place] coronary artery without angina pectoris (Acute) Chronic back pain (Acute) Coronary artery disease (Acute) CVA (cerebral vascular accident) (Acute) Diabetes mellitus (Acute) DJD (degenerative joint disease) (Acute) Hyperlipidemia (Acute) Hypertension (Acute) Surgical History History of coronary artery bypass graft (Acute) Family History Other CAD (coronary artery disease) Social History Smoking and tobacco status: former smoker Alcohol intake: never Substance/Drug Use: never Vitals/I&O/Wt Last Vital Signs Temp 98 F 09/02/19 09:45 Pulse 101 H 09/02/19 12:15 Resp 11 L 09/02/19 13:58 BP 129/66 09/02/19 12:15 Pulse Ox 97 09/02/19 13:58 09/02/19 09/02/19 09/02/19 06:59 14:59 22:59 Intake Total 50 / 50 Output Total 1080 / 1080 Balance -1030 / -1030 Weight last 48 hrs Weight 254 lb 14.4 oz Weight 230 lb Physical Exam Const: COMMON NORMALS: no apparent distress, oriented x3 and alert EXAM LIMITATIONS: no altered mental status GENERAL APPEARANCE: cooperative, comfortable and appears older than stated age NUTRITIONAL APPEARANCE: obese ORIENTATION/CONSCIOUSNESS: Yes awake, Yes oriented to person, Yes oriented to place and Yes oriented to time HENMT: COMMON NORMALS: normocephalic and head/scalp atraumatic HEAD & SCALP: normocephalic and atraumatic Eye: GENERAL EYE: normal appearance of both eyes Chest: COMMONS NORMALS: inspection of chest normal Resp: COMMON NORMALS: normal respiratory effort EFFORT & INSPECTION: Yes able to speak in complete sentences and Yes symmetric chest movement Cardio: OTHER: The patient was evaluated by Dr. Gallardo. Extremity: NARRATIVE EXTREMITY EXAM: The right lower extremity is in a splint. The patient appears comfortable. The toes are not particularly swollen. RIGHT LOWER EXTREMITY: Yes lower leg Right lower leg: Yes inspection (In a splint) and Yes neurovascular exam (Patient is able to wiggle her toes and they are not particularly swollen) Neuro: COMMON NORMALS: oriented x3 SENSORIUM/ORIENTATION: Yes alert, Yes oriented to person, Yes oriented to place and Yes oriented to time Psych: COMMON NORMALS: mental status grossly normal APPEARANCE: Yes grossly normal ATTITUDE: Yes calm and Yes engaged ATTENTION/CONCENTRATION: Yes attention grossly intact Skin: COMMON NORMALS: no rashes or lesions noted GENERAL SKIN EXAM: no rashes or lesions noted Urinary Catheter Management^: Russell: Cath Placed During This Visit: yes Urethral Indwelling: Yes Reason for Continuing Indwelling Catheter: Perioperative Use in Selected Surgeries Data Imaging^: Right Tib-Fib 2 view: I personally reviewed and interpreted this imaging study as follows: My impression: The patient has a minimally comminuted distal third tibia fracture which is displaced. There is no associated fibular fracture at the same level. Additionally, there is a slightly comminuted fibula fracture near the head of the fibula. Radiologist's impression: 1. Obliquely oriented mildly comminuted fracture involving the distal tibial diaphysis with approximately 1/2 shaft width displacement. 2. Distal fibular diaphyseal fracture with a full shaft width displacement. Comminuted fracture involving the proximal aspect of the fibula and with mild displacement. A&P Assessment and plan (1) Tibia and fibula open fracture, right: As noted, the patient presented to the emergency department with the above findings. The patient has an open tibia fracture associated with a segmental fibula fracture. The fibula fracture is present at the level of the tibia fracture and also approximately close to the knee. The fracture is apparently an inside-out fracture secondary to the patient's fall. She was admitted through the emergency department for potential therapies today. Upon evaluation by the medical service, the patient was found to have multiple medical issues which precluded us from proceeding to surgery. Most significantly, she had a critically elevated potassium. With her diabetes, she was given insulin and glucose in the emergency department as well as calcium gluconate and Kayexalate. In spite of this, her potassium initially decreased and subsequently increased again later in the afternoon. Plan had been to take the patient to surgery this afternoon, but currently, her potassium is elevating rather than diminishing. After discussion with the hospitalist service, we have elected to continue to evaluate the patient's kidney function as well as her hyperkalemia to optimize her for surgical intervention. Although this will place her at slightly greater than 24 hours from her injury, it is felt prudent to delay surgery until medically she is more appropriate. Status: Acute Qualifiers: Encounter type: initial encounter Open fracture type: open type I or II Qualified Code(s): S82.201B - Unspecified fracture of shaft of right tibia, initial encounter for open fracture type I or II; S82.401B - Unspecified fracture of shaft of right fibula, initial encounter for open fracture type I or II Code(s): S82.201B - Unspecified fracture of shaft of right tibia, initial encounter for open fracture type I or II; S82.401B - Unspecified fracture of shaft of right fibula, initial encounter for open fracture type I or II Consult Attestations Medical Necessity Statement: Per hospitalist service and per assessment and plan Coding Level of Care Code Acute [employer]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
[2019-09-02 17:36] LABS: Blood Urea Nitrogen 47 mg/dL (6-20); Calcium 8.9 mg/dL (8.5-10.5); Carbon Dioxide 24 mmol/L (22-29); Chloride 105 mmol/L (98-107); Glomerular Filtration Rate 24.2 mL/min (90-130); Glucose 294 mg/dL (74-109); Osmolality Calculated 295 mOsm/kg (285-295); Sodium 138 mmol/L (136-145)
[2019-09-02] MEDS: metoprolol tartrate 1 mg/1 mL SDV 5 mL 5 MG IV (18:47)
[2019-09-02 21:32] LABS: Anion Gap 14.6 (5-19); Blood Urea Nitrogen 40 mg/dL (6-20); Calcium 8.8 mg/dL (8.5-10.5); Carbon Dioxide 24 mmol/L (22-29); Chloride 103 mmol/L (98-107); Glomerular Filtration Rate 25.6 mL/min (90-130); Glucose 349 mg/dL (74-109); Osmolality Calculated 292 mOsm/kg (285-295); Potassium 6.6 mmol/L (3.5-5.1); Sodium 135 mmol/L (136-145)
--- NOTE | 2019-09-02 21:40 | PC.NURSE ---
Notified Dr. De La Rosa of K of 6.6 on most recent BMP. Reviewed all lab results with Dr. De La Rosa. Notified that patient is diabetic and current blood sugar is 349. Notified that patient is having constant pain and the morphine 2mg every 4 hours is not controlling her pain adequately. Dr. De La Rosa states I will order some things.
[2019-09-02] MEDS: sodium polystyrene sulfonate 15 gm/60 mL Btl 30 GM PR (22:23)
[2019-09-02] MEDS: dextrose 50% syringe 50 mL 25 ML IVP (22:24)
[2019-09-03] VITALS (36 sets, daily range): BP systolic 80–153; BP diastolic 55–93; PULSE 87–121; RESP 3–28; TEMP 36.6–37; O2SAT 90–100
--- NOTE | 2019-09-03 | SCC_ITS ---
Procedure Done: Open reduction internal fixation right open tibia fracture 279.5 seconds of fluoroscopic guidance, for a cumulative dose of 13.25 mGy, was provided to Dr. Gasca by the radiology department. C-arm images of the RIGHT lower leg were saved for the patient's permanent record. [facility]
--- NOTE | 2019-09-03 00:10 | PC.NURSE ---
Large part formed part liquid stool noted. Complete bed change done, complete bed bath done. Tolerated well, morphine given IV for pain. Pulses remain strong to right foot, with toes warm and pink, normal sensation reported to light touch.
[2019-09-03] MEDS: metoprolol tartrate 1 mg/1 mL SDV 5 mL 5 MG IV ×3 (02:02→14:02)
[2019-09-03] MEDS: sodium chloride 0.9% 1,000 ML 125 ML IV (02:02)
[2019-09-03] MEDS: HYDROmorphone 1 mg/mL INJ 1 mL IVP ×6 (02:14→18:05)
[2019-09-03] MEDS: morphine 4 mg/mL SDV 1 mL 2 MG IVP (03:32)
[2019-09-03 04:43] LABS: Basophils % 0.7 %; Eosinophils # 0.1 10^3/uL (0.0-0.8); Eosinophils % 1.1 %; Hematocrit 27.3 % (37.0-47.0); Hemoglobin 8.6 g/dL (11.5-15.3); Lymphocytes # 1.3 10^3/uL (0.8-4.8); Lymphocytes % 23.1 %; Mean Corpuscular HGB Conc 31.5 g/dL (30.0-36.0); Mean Corpuscular Hemoglobin 30.8 pg (28.0-34.0); Mean Corpuscular Volume 97.8 fL (81-99); Mean Platelet Volume 11.5 fL (7.4-10.4); Monocytes # 0.3 10^3/uL (0.2-0.9); Monocytes % 4.7 %; Neutrophils # 3.9 10^3/uL (1.8-7.7); Nucleated Red Blood Cells % 0 %; Platelet Count 114 10^3/cmm (130-400); Red Blood Count 2.79 10^6/uL (4.1-5.3); Red Cell Distribution Width 15.4 % (12.1-15.1); White Blood Count 5.5 10^3/uL (4.0-10.0)
[2019-09-03 05:00] LABS: Anion Gap 12.5 (5-19); Blood Urea Nitrogen 32 mg/dL (6-20); Calcium 8.4 mg/dL (8.5-10.5); Carbon Dioxide 24 mmol/L (22-29); Chloride 106 mmol/L (98-107); Glomerular Filtration Rate 30.9 mL/min (90-130); Glucose 287 mg/dL (74-109); Osmolality Calculated 294 mOsm/kg (285-295); Potassium 4.5 mmol/L (3.5-5.1); Sodium 138 mmol/L (136-145)
[2019-09-03 05:14] LABS: Creatine Phosphokinase 844 U/L (26-192)
--- NOTE | 2019-09-03 05:31 | PC.NURSE ---
Notified Dr. Gasca of Hgb and Hct of 8.6 and 27.3. Orders given to type and cross for 2 units PRBC.
--- NOTE | 2019-09-03 05:32 | PC.NURSE ---
Chlorhexadine bath given as pre-op for surgery
--- NOTE | 2019-09-03 06:46 | ANES.PAUD2 ---
Pre-Anesthetic Update Pre-Anesthetic Assessment: Date of Surgery/Procedure: 09/03/19 Preop Diagnosis: Open right distal third tibia fracture, displaced Proposed Procedure: Operation Date: 09/02/19 15:20 Proposed Procedures p ORIF Tibia/Fibula Intermedullary Nailing(Right) - Lisa Gasca MD Operation Date: 09/03/19 07:00 Proposed Procedures p ORIF Tibia/Fibula(Right) - Lisa Gasca MD Last Intake: Intake Last Liquid Date 09/02/19 Last Liquid Time 00:00 Last Solid Date 09/02/19 Labs Last 48hrs: Laboratory Results - last 48 hr 09/02/19 09/02/19 09/02/19 05:35 06:20 06:20 WBC 9.3 RBC 3.61 L Hgb 10.8 L Hct 34.0 L MCV 94.2 MCH 29.9 MCHC 31.8 RDW 15.7 H Plt Count 150 MPV 11.0 H Neut % (Auto) 78.0 Lymph % (Auto) 12.6 [place] % (Auto) 4.5 Eos % (Auto) 3.8 Baso % (Auto) 0.9 Neut # (Auto) 7.2 Lymph # (Auto) 1.2 [place] # (Auto) 0.4 Eos # (Auto) 0.4 Baso # (Auto) 0.1 Nucleated RBC % (a uto) 0 Nucleated RBCs # 0.0 PT 14.60 H INR 1.11 APTT 27.3 Sodium Potassium Chloride Carbon Dioxide Anion Gap BUN Creatinine GFR Calculation Glucose Calculated Osmolal ity Calcium Total Bilirubin AST ALT Alkaline Phosphata se Creatine Kinase CK-MB (CK-2) CK-MB (CK-2) Rel I ndex Troponin I 6 Hour Troponin I Hi Sens Del Troponin T Baselin e Troponin T 120 Min [place] Troponin T Total Protein Albumin Globulin Urine Color Yellow Urine Appearance Hazy A Urine pH 5 Ur Specific Gravit y 1.010 Urine Protein Neg Urine Glucose (UA) 4+ H Urine Ketones 1+ H Urine Occult Blood 3+ H Urine Nitrate Negative Urine Bilirubin 1+ H Urine Urobilinogen Norm Ur Leukocyte Guerita ase 1+ H Urine RBC 10-15 H Urine WBC 55-80 H Ur Squamous Epith Cells 10-15 H Urine Bacteria 3+ H Hyaline Casts Rare Urine Mucus Trace 09/02/19 09/02/19 09/02/19 06:20 07:03 07:03 WBC RBC Hgb Hct MCV MCH MCHC RDW Plt Count MPV Neut % (Auto) Lymph % (Auto) [place] % (Auto) Eos % (Auto) Baso % (Auto) Neut # (Auto) Lymph # (Auto) [place] # (Auto) Eos # (Auto) Baso # (Auto) Nucleated RBC % (a uto) Nucleated RBCs # PT INR APTT Sodium 132 L 133 L Potassium 7.3 H* 7.6 H* Chloride 98 99 Carbon Dioxide 23 25 Anion Gap 18.3 16.6 BUN 57 H 57 H Creatinine 2.9 H 2.8 H GFR Calculation 16.7 L 17.4 L Glucose 323 H 347 H Calculated Osmolal ity 288 Calcium 9.0 8.9 Total Bilirubin 0.7 AST 36 H ALT 14 Alkaline Phosphata se 86 Creatine Kinase CK-MB (CK-2) CK-MB (CK-2) Rel I ndex Troponin I 6 Hour Troponin I Hi Sens Del Troponin T Baselin e 86 H Troponin T [address] [place] Troponin T Total Protein 7.0 Albumin 3.8 Globulin 3.2 Urine Color Urine Appearance Urine pH Ur Specific Gravit y Urine Protein Urine Glucose (UA) Urine Ketones Urine Occult Blood Urine Nitrate Urine Bilirubin Urine Urobilinogen Ur Leukocyte Guerita ase Urine RBC Urine WBC Ur Squamous Epith Cells Urine Bacteria Hyaline Casts Urine Mucus 09/02/19 09/02/19 09/02/19 09:10 09:10 12:25 WBC RBC Hgb Hct MCV MCH MCHC RDW Plt Count MPV Neut % (Auto) Lymph % (Auto) [place] % (Auto) Eos % (Auto) Baso % (Auto) Neut # (Auto) Lymph # (Auto) [place] # (Auto) Eos # (Auto) Baso # (Auto) Nucleated RBC % (a uto) Nucleated RBCs # PT INR APTT Sodium 134 L 134 L Potassium 5.7 H 6.3 H Chloride 101 101 Carbon Dioxide 20 L 24 Anion Gap 18.7 15.3 BUN 49 H 46 H Creatinine 2.6 H 2.4 H GFR Calculation 18.9 L 20.7 L Glucose 319 H 309 H Calculated Osmolal ity 288 288 Calcium 8.9 9.1 Total Bilirubin AST ALT Alkaline Phosphata se Creatine Kinase 1025 H* CK-MB (CK-2) 7.6 H CK-MB (CK-2) Rel I ndex 0.7 Troponin I 6 Hour Troponin I Hi Sens Del Troponin T Baselin e Troponin T 120 Min [place] 74.01 [place] Troponin T -11.99 L Total Protein Albumin Globulin Urine Color Urine Appearance Urine pH Ur Specific Gravit y Urine Protein Urine Glucose (UA) Urine Ketones Urine Occult Blood Urine Nitrate Urine Bilirubin Urine Urobilinogen Ur Leukocyte Guerita ase Urine RBC Urine WBC Ur Squamous Epith Cells Urine Bacteria Hyaline Casts Urine Mucus 09/02/19 09/02/19 09/02/19 13:01 16:53 20:54 WBC RBC Hgb Hct MCV MCH MCHC RDW Plt Count MPV Neut % (Auto) Lymph % (Auto) [place] % (Auto) Eos % (Auto) Baso % (Auto) Neut # (Auto) Lymph # (Auto) [place] # (Auto) Eos # (Auto) Baso # (Auto) Nucleated RBC % (a uto) Nucleated RBCs # PT INR APTT Sodium 138 135 L Potassium 6.0 H 6.6 H Chloride 105 103 Carbon Dioxide 24 24 Anion Gap 15.0 14.6 BUN 47 H 40 H Creatinine 2.1 H 2.0 H GFR Calculation 24.2 L 25.6 L Glucose 294 H 349 H Calculated Osmolal ity 295 292 Calcium 8.9 8.8 Total Bilirubin AST ALT Alkaline Phosphata se Creatine Kinase CK-MB (CK-2) CK-MB (CK-2) Rel I ndex Troponin I 6 Hour 74.05 H Troponin I Hi Sens Del -11.95 L Troponin T Baselin e Troponin T [address] [place] Troponin T Total Protein Albumin Globulin Urine Color Urine Appearance Urine pH Ur Specific Gravit y Urine Protein Urine Glucose (UA) Urine Ketones Urine Occult Blood Urine Nitrate Urine Bilirubin Urine Urobilinogen Ur Leukocyte Guerita ase Urine RBC Urine WBC Ur Squamous Epith Cells Urine Bacteria Hyaline Casts Urine Mucus 09/03/19 09/03/19 04:12 04:12 WBC 5.5 RBC 2.79 L Hgb 8.6 L Hct 27.3 L MCV 97.8 MCH 30.8 MCHC 31.5 RDW 15.4 H Plt Count 114 L MPV 11.5 H Neut % (Auto) 70.0 Lymph % (Auto) 23.1 [place] % (Auto) 4.7 Eos % (Auto) 1.1 Baso % (Auto) 0.7 Neut # (Auto) 3.9 Lymph # (Auto) 1.3 [place] # (Auto) 0.3 Eos # (Auto) 0.1 Baso # (Auto) 0.0 Nucleated RBC % (a uto) 0 Nucleated RBCs # 0.0 PT INR APTT Sodium 138 Potassium 4.5 Chloride 106 Carbon Dioxide 24 Anion Gap 12.5 BUN 32 H Creatinine 1.7 H GFR Calculation 30.9 L Glucose 287 H Calculated Osmolal ity 294 Calcium 8.4 L Total Bilirubin AST ALT Alkaline Phosphata se Creatine Kinase 844 H* CK-MB (CK-2) CK-MB (CK-2) Rel I ndex Troponin I 6 Hour Troponin I Hi Sens Del Troponin T Baselin e Troponin T [address] [place] Troponin T Total Protein Albumin Globulin Urine Color Urine Appearance Urine pH Ur Specific Gravit y Urine Protein Urine Glucose (UA) Urine Ketones Urine Occult Blood Urine Nitrate Urine Bilirubin Urine Urobilinogen Ur Leukocyte Guerita ase Urine RBC Urine WBC Ur Squamous Epith Cells Urine Bacteria Hyaline Casts Urine Mucus Vitals: Temperature 98.6 F 09/03/19 06:00 Temperature Source Oral 09/03/19 06:00 Pulse Rate 108 H 09/03/19 06:00 Pulse Rhythm 09/02/19 20:00 Pulse Strength 3+ Normal 09/02/19 20:00 Respiratory Rate 14 09/03/19 06:06 Respiratory Effort Non-Labored 09/03/19 02:14 Respiratory Depth Normal 09/03/19 02:14 Respiratory Patter n 09/02/19 23:47 Blood Pressure 125/75 09/03/19 06:00 Blood Pressure Marcelina n 91 09/03/19 06:00 Blood Pressure Pos ition Semi Fowlers 09/03/19 04:00 Pulse Oximetry 95 09/03/19 06:00 Oxygen Delivery Me thod 09/03/19 06:00 Oxygen Flow Rate 4 09/02/19 10:45 Sepsis Recent Feve r Within 48 Hours No 09/02/19 05:24 Sepsis New/Unexpla ined Change in Men cr Status No 09/02/19 05:24 Exam: Pre-Anes Outpt Exam: alert Additional Exam Findings (including area of procedure): tachycardia - will give metoprolol Other Pertinent Information: Other Pertinent Information: Potassium 4.5, will proceed with general for airway control and to induce hyperventilation if required. Goal is to minimize tourniquet time. Will reassess need for regional post procedure as surgeon requesting to evaluate patient post op first. Cardiac Studies: No Data to Display
--- NOTE | 2019-09-03 06:47 | PC.NURSE ---
Dr. Garcia at bedside, requests that AM dose of Metoprolol be given now prior to her going to surgery due to elevated heart rate.
--- NOTE | 2019-09-03 06:55 | PM.MISC ---
Miscellaneous Note Purpose of Documentation: Preop visit in ICU Note: The patient is seen in the ICU with her son prior to proceeding with surgical intervention this morning. Once again, we discussed the fact that her medical conditions outweighed proceeding with surgical intervention yesterday. Fortunately, today, her potassium level is mid range. She is advised that the tourniquet will give her a load of potassium when it is released as well, but given her current potassium level, this should be safer than it would have been yesterday. The patient and her son understand. She agrees to proceed with surgery.
--- NOTE | 2019-09-03 06:59 | PC.NURSE ---
To OR via bed with Anesthesiologist at bedside.
--- NOTE | 2019-09-03 07:15 | PC.NURSE ---
0645 - Dr. Gasca at bedside right leg verified and marked for surgery.
--- NOTE | 2019-09-03 07:39 | PC.NURSE ---
Pt gone to OR - left at approximately 0700.
[2019-09-03] MEDS: ceFAZolin 1,000 mg SDV 4000 MG IRRIGATION (08:01)
--- NOTE | 2019-09-03 10:03 | XRR_ITS ---
PROCEDURE INFORMATION: Exam: XR Right Tibia and Fibula Exam date and time: 09/03/2019 10:36 AM Age: 59 years old Clinical indication: Condition or disease; Other: Post op; Prior surgery; Surgery date: Post-operative (0-2 days); Additional info: Postop TECHNIQUE: Imaging protocol: XR Right tibia and fibula. Views: 2 views. COMPARISON: CR (LOW EXM, ) 09/02/2019 5:55 AM FINDINGS: Bones/joints: Intramedullary kiersten with locking screws proximally and distally stabilizing a mildly comminuted and mildly displaced fracture of the distal tibial diaphysis. Comminuted mildly displaced fracture involving the proximal aspect of the fibula as well as the distal fibular diaphysis. Soft tissues: Normal. XR/XR tibia fibula RT 2V [id number] IMPRESSION: 1. Intramedullary kiersten with locking screws proximally and distally stabilizing a mildly comminuted and mildly displaced fracture of the distal tibial diaphysis. 2. Comminuted mildly displaced fracture involving the proximal aspect of the fibula as well as the distal fibular diaphysis.
--- NOTE | 2019-09-03 10:11 | P.OP_ITS ---
Operative Report Date of procedure: September 03, 2019 Pre-op Diagnosis: Open right distal third tibia fracture with segmental fibula fracture Post-op diagnosis: same Post-op Diagnosis: Open right distal third tibia fracture, displaced, with se gmental fibula fracture Procedure Done: Open reduction internal fixation right open tibia fracture utilizing the [place] T2 system with copious irrigation and debridement of open wound over the distal third of tibial fracture Implants: [place] standard tibial nail size 10 mm x 330 mm, T2, with 2 fully t hreaded proximal locking screws and 2 fully threaded distal locking screws and a 10 mm end cap Specimens removed/disposition: None Pathology: none sent Surgeon: Lisa Gasca Area Forester: [facility] OR technicians Anesthesia: General (Intubated) Estimated blood loss (mL): 25 Tourniquet time (min): 117 IV fluids (mL): 700 Urine output (mL): 800 Complications: None Findings: Displaced distal third tibia fracture with no evidence of acute infection or other complication Condition: stable Disposition: ICU (Return) Brief History: This 59-year-old woman was admitted morning on September 02 following a fall at home. The patient notes the injury occurred at approximately 3 AM. She presented to the emergency department at approximately 6 AM. She was admitted to the hospital. She was evaluated by the hospitalist service after she was found to have a critically high potassium. Her admission was also complicated by her other medical comorbidities. The patient has had a CABG in the past and was to have had a stress test which was delayed secondary to respiratory issues. Her troponin was elevated as well as her potassium and s he had evidence of acute kidney failure and a urinary tract infection. Attempt was made to address her fracture the day of admission, however, her medical problems including in particular her elevated potassium persisted throughout the day, and the surgery was delayed until the following morning at 7 AM. Discussion was undertaken with the patient and her family regarding the issues with delay of treatment and infection following open fracture, however, she was not felt safe to undergo the anesthetic that would be required to address her fracture. She understood and was consented for surgery and scheduled for the above procedure. Procedure: Patient is brought to the operating theater. After undergoing adequate general anesthesia with intubation, the patient was positioned on the table and fluoroscopic guidance obtained throughout the surgical procedure. Prior to the commencement of the surgical procedure, a surgical pause was performed. At the time of the surgical pause, we confirmed the site and side of surgery as well as preoperative surgical markings and appropriate and timely administration of IV antibiotics, ceftriaxone. Availability of equipment was also confirmed. Fluoroscopy was used to confirm fracture position as well as position of the guide kiersten and intramedullary nail throughout the surgical procedure. The distal third tibia fracture including the open laceration was evaluated. The laceration was noted to be angled and somewhat irregular. This was extended medially and laterally to allow access for irrigation of the open fracture. The fracture was manipulated so that we could irrigate between the fracture fragments. The skin was freshened along its entirety as well. Irrigation was then accomplished with pulse lavage including 3 L of fluid containing Ancef. Additional irrigation was accomplished with a bulb syringe. The fracture was evaluated by x-ray. We were able to place a clamp to hold the fracture in a reduced position. This was a lobster claw type clamp. With this in place, we were able to hold the fracture reduced throughout the remainder of the surgical procedure. X-rays demonstrated the fracture to be in good position. An incision was then made midline over the midportion of the patella continuing distally along the patellar tendon and tibial tuberosity. Entry into the knee joint was made along the patellar tendon, and initially a [place] and subsequently a K wire was used to determine entry point for the tibial nail. This entry point was confirmed in AP and lateral planes. The K wire was then placed into position and reaming was accomplished over the K wire. Guidewire was then passed from the knee down to the ankle under fluoroscopic guidance. Reaming was then accomplished to an 11.5 mm reamer to allow placement of a 10 mm tibial nail. Prior to reaming, we did measure the guidewire, and shows a 330 mm length nail. Once the reaming was accomplished, we opened the nail for placement into the tibia. A 10 mm x 330 mm T2 tibial nail was chosen. The initial ball-tipped guidewire was removed after the [place] tube was placed over it and the guidewire was exc hanged to a standard guidewire so that the nail could pass over it. This nail was placed into appropriate position with positioning being confirmed in AP and lateral planes on the x-ray. It passed without difficulty. The jig system was then used to place 2 proximal screws. One was placed from lateral to medial and the other was an oblique screw from medial to posterior. Position of these screws as well as lengths were confirmed to be appropriate on x-ray. The jig system was then removed and attention was directed distally. Distally, a perfect tangirnaq technique was used after appropriate position of the fracture was once again confirmed. 1 screw was placed distally and the lobster claw bone clamp was removed. We then placed a second screw distally. Both of the screws were placed from lateral to medial. Once the screws were in position, AP and lateral x-rays were obtained proximally and distally including the fracture, knee, and ankle. Finding the construct to be appropriate and the fracture to be well reduced, attention was directed to closure. The knee arthrotomy along the patellar tendon was closed with 0 Vicryl in an interrupted fashion. Subcutaneous tissues were closed with 2-0 Monocryl, and the skin was closed with skin edgar. The open fracture laceration was closed with a combination of 2-0 Monocryl and skin edgar. The small incisions made for placement of the screws which included 4 separate incisions were closed with skin edgar alone. We then used Exofin around the edgar. This was followed by Telfa, 4 x 4's, sterile soft roll, and an [place] wrap. The patient was then placed in a walking boot. The patient was returned to the ICU in satisfactory condition. The patient will be discharged to the floor for postoperative rehabilitation and pain management when she is considered stable per the medical service. There were no specimens obtained.
--- NOTE | 2019-09-03 11:07 | PC.CHAP ---
Pastoral Care Encounter/Spiritual Assessment Type of Contact [] Declined press pipe inspector visit [] Patient/Family/Request visit [] Outpatient visit [x] Follow-up visit [] Physician referral [] Code/Alert [] Routine visit [] Staff referral [] Actively dying [] Patient sleeping [] Family support [] [] Out of room [] Palliative care [] [x] Receiving care in room [] Pre-surgical visit [] Trauma [] Long length of stay [x] ICU visit [] Other: Relational/Emotional Strength [] Patient feels connected with others/family/visitors/staff [] Distress [] Loneliness/isolation [] Abandonment Spirituality of Patient [] Person of Ankita [] Attends Jewish of their Ankita [] Believes in Prayer [] Reads Bible or Yazidi materials [] There are Spiritual issues to be addressed Wagon Driver Salesperson Interventions [] Prayer [] Active listening [] Non-anxious presence [] Spiritual/emotional support [] Crisis/trauma care [] Spiritual counseling [] Bereavement support [] Provided bereavement packet [] Provided Bible/devotional materials [] Provided toy/stuffed animal, coloring book to patient or family member [] Provided Communion [] Anointing/[place] [] Salvation [] Completed spiritual assessment [] Other: Impact on Illness or Injury [] Angry [] Fearful [] Anxious [] Often cries [] Exhaustion [] Unable to work [] Unable to attend mormonism [] Unable to walk/stand [] Unable to read [] Unable to drive [] Unable to eat/drink [] Unable to sleep [] Unable to be with family [] Patient intubated [] Other: Summary Patient was being moved back into the room at the time of visit and staff was still in the room providing care. Visit attempted by Wagon Driver Salespersonjohanna James Time spent with patient 3 minutes
[2019-09-03] MEDS: morphine 4 mg/mL SDV 1 mL IVP (11:24)
--- NOTE | 2019-09-03 12:03 | XR_ITS ---
WS: [id number] INTRAOPERATIVE TECHNIQUE: 7 Spot fluoroscopic images for intraoperative purposes. FLUOROSCOPY TIME: 279.5 seconds CLINICAL INFORMATION: OR PICS COMPARISON: None. FINDINGS: Intraoperative changes intramedullary kiersten and screw fixation right tibia. Hardware appears in good po sition. XR/XR tibia fibula RT 2V [id number] IMPRESSION: Images obtained for intraoperative purposes.
--- NOTE | 2019-09-03 13:05 | PM.PN ---
Subjective Subjective: Interval history: Patient underwent open reduction internal fixation of the distal tibial fracture this morning. Currently she is mainly complaining about pain at the surgical knee site. She is somewhat tachycardic on the monitor. Blood pressure remained stable. No chest pain or shortness of breath. Medications: Reviewed: Yes Medication Review Details: Current Medications Aspirin (Aspirin Ec) 325 mg PO DAILY RON Docusate Sodium (Colace) 100 mg PO BID RON Hydromorphone HCl (Dilaudid Inj) 1 - 2 mg IVP Q2H PRN PRN Reason: PAIN Last Admin: 09/03/19 12:38 Dose: 2 mg Documented by: Sodium Chloride (Sodium Chloride 0.9%) 1,000 mls @ 125 mls/hr IV .Q8H [facility] Last Infusion: 09/03/19 07:28 Dose: Infused Documented by: Ceftriaxone Sodium 1,000 mg/ (Sodium Chloride) 50 mls @ 100 mls/hr IV Q24H [facility]; Protocol Last Infusion: 09/02/19 14:05 Dose: Infused Documented by: Metoprolol Tartrate (Metoprolol Tartrate) 5 mg IV Q6H [facility] Last Admin: 09/03/19 06:49 Dose: 5 mg Documented by: Morphine Sulfate (Morphine) 4 mg IVP Q2H PRN PRN Reason: SEVERE PAIN Last Admin: 09/03/19 11:24 Dose: 4 mg Documented by: Morphine Sulfate (Morphine) 2 mg IVP Q4H PRN PRN Reason: SEVERE PAIN Last Admin: 09/03/19 03:32 Dose: 2 mg Documented by: Ondansetron HCl (Zofran) 4 mg IVP Q6H PRN PRN Reason: NAUSEA AND VOMITING Ondansetron HCl (Zofran) 4 mg IVP Q4H PRN PRN Reason: vomiting, or N/V if npo Oxycodone/Acetaminophen (Percocet 5-325 Mg) 1 - 2 tab PO Q4H PRN PRN Reason: BREAKTHROUGH PAIN Tizanidine HCl (Zanaflex) 8 mg PO BEDTIME RON Tramadol HCl (Ultram) 50 mg PO Q4H PRN PRN Reason: MILD TO MODERATE PAIN Vitals/I&O/Wt Last Vital Signs Temp 98.6 F 09/03/19 06:00 Pulse 114 H 09/03/19 12:15 Resp 12 09/03/19 12:38 BP 112/62 09/03/19 12:15 Pulse Ox 93 09/03/19 12:38 09/02/19 09/03/19 09/03/19 22:59 06:59 14:59 Intake Total 1450 / 1500 1000 / 2500 1400 / 1400 Output Total 1600 / 2680 1420 / 1420 Balance 1450 / 420 -600 / -180 -20 / -20 Weight last 48 hrs Weight 254 lb 14.4 oz Weight 230 lb Physical Exam Narrative: EXAM NARRATIVE: GENERAL: The patient is alert and oriented times three. Complaining of severe pain in the surgical site HEENT: No significant pallor, icterus or lymphadenopathy.Oral cavity: There are no mucous membrane lesions. NECK: Trachea appears to be central. No masses noted. No JVD or thyromegaly appreciated. RESPIRATORY: Chest is symmetrical. No intercostals muscle retraction or any accessory muscle activation. There is no chest wall tenderness. Breath sounds are heard bilaterally. No rales or rhonchi heard. No evidence of any consolidation. BREASTS: Deferred. HEART: The heart sounds are normal. No S3 or S4. Murmurs. No pericardial rub ABDOMEN: No vessel pulsations or distention. No tenderness. No organomegaly appreciated. Bowel sounds are normally heard. : Deferred. RECTAL: Deferred. LYMPHATIC: No lymphadenopathy noted in the neck or groin. EXTREMITIES: No edema or cyanosis. No clubbing. MUSCULOSKELETAL: Status post open reduction internal fixation of the right lower extremity SKIN: There are no significant scars or skin rash noted. NEUROPSYCHIATRIC: The patient is alert and oriented x3. Appears to be in a good mood. No tremors or rigidity noted. Urinary Catheter Management^: Russell: Cath Placed During This Visit: no Data : 09/03/19 04:12 09/03/19 04:12 Other Labs: Abnormal lab results 09/02/19 09/02/19 09/02/19 Range/Units 12:25 13:01 16:53 RBC (4.1-5.3) 10^6/uL Hgb (11.5-15.3) g/dL Hct (37.0-47.0) % RDW (12.1-15.1) % Plt Count (130-400) 10^3/cmm MPV (7.4-10.4) fL Sodium 134 L (136-145) mmol/L Potassium 6.3 H 6.0 H (3.5-5.1) mmol/L BUN 46 H 47 H (6-20) mg/dL Creatinine 2.4 H 2.1 H (0.5-0.9) mg/dL GFR Calculation 20.7 L 24.2 L (90-130) mL/min Glucose 309 H 294 H (74-109) mg/dL Calcium (8.5-10.5) mg/dL Creatine Kinase 1025 H* (26-192) U/L CK-MB (CK-2) 7.6 H (0-5.34) ng/mL Troponin I 6 Hour 74.05 H (0-10) ng/L Troponin I Hi Sens Del -11.95 L (0-12) ng/L Crossmatch 09/02/19 09/03/19 09/03/19 Range/Units 20:54 04:12 04:12 RBC 2.79 L (4.1-5.3) 10^6/uL Hgb 8.6 L (11.5-15.3) g/dL Hct 27.3 L (37.0-47.0) % RDW 15.4 H (12.1-15.1) % Plt Count 114 L (130-400) 10^3/cmm MPV 11.5 H (7.4-10.4) fL Sodium 135 L (136-145) mmol/L Potassium 6.6 H (3.5-5.1) mmol/L BUN 40 H 32 H (6-20) mg/dL Creatinine 2.0 H 1.7 H (0.5-0.9) mg/dL GFR Calculation 25.6 L 30.9 L (90-130) mL/min Glucose 349 H 287 H (74-109) mg/dL Calcium 8.4 L (8.5-10.5) mg/dL Creatine Kinase 844 H* (26-192) U/L CK-MB (CK-2) (0-5.34) ng/mL Troponin I 6 Hour (0-10) ng/L Troponin I Hi Sens Del (0-12) ng/L Crossmatch 09/03/19 Range/Units 05:41 RBC (4.1-5.3) 10^6/uL Hgb (11.5-15.3) g/dL Hct (37.0-47.0) % RDW (12.1-15.1) % Plt Count (130-400) 10^3/cmm MPV (7.4-10.4) fL Sodium (136-145) mmol/L Potassium (3.5-5.1) mmol/L BUN (6-20) mg/dL Creatinine (0.5-0.9) mg/dL GFR Calculation (90-130) mL/min Glucose (74-109) mg/dL Calcium (8.5-10.5) mg/dL Creatine Kinase (26-192) U/L CK-MB (CK-2) (0-5.34) ng/mL Troponin I 6 Hour (0-10) ng/L Troponin I Hi Sens Del (0-12) ng/L Crossmatch See Detail Micro: Microbiology 09/02/19 05:35 Urine Culture - Preliminary Urine,Clean Catch Gram Negative Rods A&P Assessment and plan (1) Atherosclerotic heart disease of [place] coronary artery without angina pectoris: Patient with history of coronary artery disease and coronary artery bypass surgery, currently remaining stable. No specific cardiac symptoms. Continue on the current medications. Status: Acute Qualifiers: [place] vs. transplanted heart: [place] heart Qualified Code(s): I25.10 - Atherosclerotic heart disease of [place] coronary artery without angina pectoris Code(s): I25.10 - Atherosclerotic heart disease of [place] coronary artery without angina pectoris (2) Fracture of tibia and fibula, open: Patient status post open reduction internal fixation. So far she has an uncomplicated course Status: Acute Qualifiers: Encounter type: initial encounter Laterality: right Open fracture type: open type I or II Qualified Code(s): S82.201B - Unspecified fracture of shaft of right tibia, initial encounter for open fracture type I or II; S82.401B - Unspecified fracture of shaft of right fibula, initial encounter for open fracture type I or II Code(s): S82.209B - Unspecified fracture of shaft of unspecified tibia, initial encounter for open fracture type I or II; S82.409B - Unspecified fracture of shaft of unspecified fibula, initial encounter for open fracture type I or II (3) Anemia: Closely monitor H&H. May require transfusion if the hemoglobin drops below 8. Status: Acute Qualifiers: Anemia type: other cause Other causes of anemia: acute posthemorrhagic Qualified Code(s): D62 - Acute posthemorrhagic anemia Code(s): D64.9 - Anemia, unspecified (4) Acute kidney injury: Kidney function is improving. May continue the careful hydration Status: Acute Code(s): N17.9 - Acute kidney failure, unspecified (5) Hypertension: Currently normotensive. Continue on the current medications. Status: Acute Qualifiers: Hypertension type: essential hypertension Qualified Code(s): I10 - Essential (primary) hypertension Code(s): I10 - Essential (primary) hypertension (6) Hyperlipidemia: May continue on the current management. 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 transplanted heart: [place] heart Fracture of tibia and fibula, open S82.201B; S82.401B Encounter type: initial encounter Laterality: right Open fracture type: open type I or II Anemia D62 Anemia type: other cause Other causes of anemia: acute posthemorrhagic Acute kidney injury N17.9 Hypertension I10 Hypertension type: essential hypertension Hyperlipidemia E78.2 Hyperlipidemia type: mixed hyperlipidemia
[2019-09-03] MEDS: oxyCODONE-APAP 5-325 mg Tablet PO (15:38)
--- NOTE | 2019-09-03 15:43 | PM.PN ---
Subjective Subjective: Interval history: Minnie went to surgery earlier this morning. I have seen her several times today. She has some issues with pain and we have been adjusting her pain medication. Medications: Reviewed: Yes Vitals/I&O/Wt Last Vital Signs Temp 98.6 F 09/03/19 06:00 Pulse 114 H 09/03/19 12:15 Resp 14 09/03/19 15:38 BP 112/62 09/03/19 12:15 Pulse Ox 97 09/03/19 15:38 09/03/19 09/03/19 09/03/19 06:59 14:59 22:59 Intake Total 1000 / 2500 1400 / 1400 Output Total 1600 / 2680 1420 / 1420 Balance -600 / -180 -20 / -20 Weight last 48 hrs Weight 115.621 kg Weight 104.326 kg Physical Exam Narrative: EXAM NARRATIVE: General exam is appears more comfortable Cardiovascular mild tachycardia, no murmur Lungs clear Abdomen is soft with positive bowel sounds Extremities no cyanosis clubbing or edema, right lower extremity in boot/walker Urinary Catheter Management^: Russell: Cath Placed During This Visit: no Data : 09/03/19 04:12 09/03/19 04:12 Micro: Microbiology 09/02/19 05:35 Urine Culture - Preliminary Urine,Clean Catch Gram Negative Rods A&P Assessment and plan (1) Hyperkalemia: Significantly elevated on arrival. This had improved to 4.5 this afternoon. Status: Acute Code(s): E87.5 - Hyperkalemia (2) Acute kidney injury: Unknown if there is acute on chronic. Improving. Creatinine now 1.7 Status: Acute Code(s): N17.9 - Acute kidney failure, unspecified (3) Tibia and fibula open fracture, right: Orthopedic consultation Directly postoperative repair today Status: Acute Qualifiers: Encounter type: initial encounter Open fracture type: open type I or II Qualified Code(s): S82.201B - Unspecified fracture of shaft of right tibia, initial encounter for open fracture type I or II; S82.401B - Unspecified fracture of shaft of right fibula, initial encounter for open fracture type I or II Code(s): S82.201B - Unspecified fracture of shaft of right tibia, initial encounter for open fracture type I or II; S82.401B - Unspecified fracture of shaft of right fibula, initial encounter for open fracture type I or II (4) Urinary tract infection: Continue Rocephin Status: Acute Code(s): N39.0 - Urinary tract infection, site not specified (5) Anemia: Follow closely. May be secondary to acute blood loss from open fracture Status: Acute Qualifiers: Anemia type: other cause Other causes of anemia: acute posthemorrhagic Qualified Code(s): D62 - Acute posthemorrhagic anemia Code(s): D64.9 - Anemia, unspecified Additional A&P Information Type 2 diabetes, sliding scale Hypertension. Initiate her metoprolol orally to prevent withdrawal tachycardia. We will go ahead and stop her IV metoprolol. Past history of CVA associated with coronary artery bypass grafting Coronary artery disease, with history of chest discomfort approximately 1 month ago. Nuclear stress test not performed as of yet Hypertension Hyperlipidemia Chronic pain syndrome on chronic narcotics. These will need to be re-added Multiple other medical problems as outlined in past medical history SCD, aspirin for DVT prophylaxis currently. Attestations Medical Necessity Statement*: Needs continued hospitalization in the ICU secondary to hyperkalemia, renal failure Critical Care Time: Reviewing multiple interventions for hyperkalemia, renal failure, preparation and follow-up after surgery for critical care needs. 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
[2019-09-03] MEDS: sodium chloride 0.9% 1,000 ML 100 ML IV (16:55)
[2019-09-03] MEDS: oxyCODONE 5 mg IR Tab/Cap 15 MG PO (16:57)
[2019-09-03 17:37] LABS: Anion Gap 12.4 (5-19); Blood Urea Nitrogen 22 mg/dL (6-20); Calcium 8.5 mg/dL (8.5-10.5); Carbon Dioxide 23 mmol/L (22-29); Chloride 104 mmol/L (98-107); Glomerular Filtration Rate 38.6 mL/min (90-130); Glucose 239 mg/dL (74-109); Osmolality Calculated 284 mOsm/kg (285-295); Potassium 4.4 mmol/L (3.5-5.1); Sodium 135 mmol/L (136-145)
[2019-09-03] MEDS: pregabalin 100 mg Capsule 200 MG PO (18:04)
[2019-09-03] MEDS: docusate sodium 100 mg Capsule PO (18:04)
[2019-09-03] MEDS: metoprolol tartrate 25 mg Tablet 12.5 MG PO (18:04)
[2019-09-04] VITALS (28 sets, daily range): BP systolic 109–149; BP diastolic 57–98; PULSE 95–128; RESP 8–24; TEMP 36.2–37.3; O2SAT 93–100
[2019-09-04] MEDS: HYDROmorphone 1 mg/mL INJ 1 mL IVP ×5 (01:01→20:01)
[2019-09-04] MEDS: sodium chloride 0.9% 1,000 ML 100 ML IV (02:07)
[2019-09-04 04:04] LABS: Basophils # 0.1 10^3/uL (0.0-0.1); Basophils % 0.9 %; Eosinophils # 0.3 10^3/uL (0.0-0.8); Eosinophils % 4.3 %; Lymphocytes % 15.4 %; Mean Corpuscular Hemoglobin 30.7 pg (28.0-34.0); Mean Platelet Volume 10.8 fL (7.4-10.4); Monocytes # 0.5 10^3/uL (0.2-0.9); Neutrophils # 4.8 10^3/uL (1.8-7.7); Nucleated Red Blood Cells % 0 %; Platelet Count 109 10^3/cmm (130-400); Red Blood Count 2.93 10^6/uL (4.1-5.3); Red Cell Distribution Width 15.7 % (12.1-15.1); White Blood Count 6.7 10^3/uL (4.0-10.0)
[2019-09-04] MEDS: oxyCODONE 5 mg IR Tab/Cap 15 MG PO ×4 (04:04→21:43)
[2019-09-04 04:27] LABS: Anion Gap 15.5 (5-19); Blood Urea Nitrogen 16 mg/dL (6-20); Calcium 8.6 mg/dL (8.5-10.5); Carbon Dioxide 23 mmol/L (22-29); Chloride 106 mmol/L (98-107); Glomerular Filtration Rate 42.1 mL/min (90-130); Glucose 267 mg/dL (74-109); Osmolality Calculated 296 mOsm/kg (285-295); Potassium 4.5 mmol/L (3.5-5.1); Sodium 140 mmol/L (136-145)
[2019-09-04] MEDS: morphine 4 mg/mL SDV 1 mL IVP ×2 (06:23→11:10)
[2019-09-04] MEDS: cefTRIAXone 1,000 MG in sodium chloride 0.9% (plus) 50 ML 100 MG IV (09:36)
[2019-09-04] MEDS: pregabalin 100 mg Capsule 200 MG PO ×2 (09:37→17:36)
[2019-09-04] MEDS: aspirin 325 mg EC Tablet PO (09:37)
[2019-09-04] MEDS: metoprolol tartrate 25 mg Tablet PO ×2 (09:37→17:36)
[2019-09-04] MEDS: docusate sodium 100 mg Capsule PO ×2 (09:37→17:36)
--- NOTE | 2019-09-04 09:41 | PM.PN ---
Subjective Subjective: Interval history: Patient is feeling better. Still has pain at the surgical incision site. Also has the baseline shortness of breath. Somewhat tachycardic on the telemetry. No fever, chills or cough. Medications: Reviewed: Yes Medication Review Details: Current Medications Aspirin (Aspirin Ec) 325 mg PO DAILY [facility] Docusate Sodium (Colace) 100 mg PO BID [facility] Last Admin: 09/03/19 18:04 Dose: 100 mg Documented by: Hydromorphone HCl (Dilaudid Inj) 1 - 2 mg IVP Q2H PRN PRN Reason: PAIN Last Admin: 09/04/19 08:25 Dose: 1 mg Documented by: Ceftriaxone Sodium 1,000 mg/ (Sodium Chloride) 50 mls @ 100 mls/hr IV Q24H [facility]; Protocol Last Infusion: 09/02/19 14:05 Dose: Infused Documented by: Sodium Chloride (Sodium Chloride 0.9%) 1,000 mls @ 50 mls/hr IV .Q20H [facility] Last Infusion: 09/04/19 07:49 Dose: 50 mls/hr Documented by: Metoprolol Tartrate (Lopressor) 25 mg PO BID [facility] Morphine Sulfate (Morphine) 4 mg IVP Q2H PRN PRN Reason: SEVERE PAIN Last Admin: 09/04/19 06:23 Dose: 4 mg Documented by: Morphine Sulfate (Morphine) 2 mg IVP Q4H PRN PRN Reason: SEVERE PAIN Last Admin: 09/03/19 03:32 Dose: 2 mg Documented by: Ondansetron HCl (Zofran) 4 mg IVP Q6H PRN PRN Reason: NAUSEA AND VOMITING Ondansetron HCl (Zofran) 4 mg IVP Q4H PRN PRN Reason: vomiting, or N/V if npo Oxycodone HCl (Oxycodone Ir) 15 mg PO Q6H [facility] Last Admin: 09/04/19 04:04 Dose: 15 mg Documented by: Tizanidine HCl (Zanaflex) 8 mg PO BEDTIME [facility] Last Admin: 09/03/19 22:56 Dose: Not Given Documented by: Tramadol HCl (Ultram) 50 mg PO Q4H PRN PRN Reason: MILD TO MODERATE PAIN Vitals/I&O/Wt Last Vital Signs Temp 97.2 F L 02/04/20 08:00 Pulse 120 H 09/04/19 08:05 Resp 16 09/04/19 08:25 BP 145/66 09/04/19 08:00 Pulse Ox 100 09/04/19 08:25 09/03/19 09/04/19 09/04/19 22:59 06:59 14:59 Intake Total 120 / 1520 920 / 2440 570 / 570 Output Total 750 / 2170 1000 / 3170 350 / 350 Balance -630 / -650 -80 / -730 220 / 220 Weight last 48 hrs Weight 254 lb 14.4 oz Physical Exam Narrative: EXAM NARRATIVE: GENERAL: The patient is alert and oriented times three. Complaining of pain at the incision site. HEENT: No significant pallor, icterus or lymphadenopathy.Oral cavity: There are no mucous membrane lesions. NECK: Trachea appears to be central. No masses noted. No JVD or thyromegaly appreciated. RESPIRATORY: Chest is symmetrical. No intercostals muscle retraction or any accessory muscle activation. There is no chest wall tenderness. Breath sounds are heard bilaterally. No rales or rhonchi heard. No evidence of any consolidation. BREASTS: Deferred. HEART: The heart sounds are normal. No S3 or S4. Murmurs. No pericardial rub ABDOMEN: No vessel pulsations or distention. No tenderness. No organomegaly appreciated. Bowel sounds are normally heard. : Deferred. RECTAL: Deferred. LYMPHATIC: No lymphadenopathy noted in the neck or groin. EXTREMITIES: No edema or cyanosis. No clubbing. MUSCULOSKELETAL: Status post open reduction internal fixation of the right lower extremity SKIN: There are no significant scars or skin rash noted. NEUROPSYCHIATRIC: The patient is alert and oriented x3. Appears to be in a good mood. No tremors or rigidity noted. Urinary Catheter Management^: Russell: Cath Placed During This Visit: no Data : 09/04/19 03:55 09/04/19 03:55 Other Labs: Abnormal lab results 09/03/19 09/04/19 09/04/19 Range/Units 17:10 03:55 03:55 RBC 2.93 L (4.1-5.3) 10^6/uL Hgb 9.0 L (11.5-15.3) g/dL Hct 29.0 L (37.0-47.0) % RDW 15.7 H (12.1-15.1) % Plt Count 109 L (130-400) 10^3/cmm MPV 10.8 H (7.4-10.4) fL Sodium 135 L (136-145) mmol/L BUN 22 H (6-20) mg/dL Creatinine 1.4 H 1.3 H (0.5-0.9) mg/dL GFR Calculation 38.6 L 42.1 L (90-130) mL/min Glucose 239 H 267 H (74-109) mg/dL Calculated Osmolality 284 L 296 H (285-295) mOsm/kg Micro: Microbiology 09/02/19 05:35 Urine Culture - Preliminary Urine,Clean Catch Gram Negative Rods A&P Assessment and plan (1) Sinus tachycardia: The etiology of the sinus tachycardia is not clear. Her pain, shortness of breath and the stress could be the contributing factor. Hemodynamically seems to be stable. Will continue monitor the heart rate. May go up on the metoprolol to 50 mg p.o. twice daily, gradually. Status: Acute Code(s): R00.0 - Tachycardia, unspecified (2) Atherosclerotic heart disease of [place] coronary artery without angina pectoris: Patient with history of coronary artery disease and coronary artery bypass surgery, currently remaining stable. No specific cardiac symptoms. Continue on the current medications. Status: Acute Qualifiers: [place] vs. transplanted heart: [place] heart Qualified Code(s): I25.10 - Atherosclerotic heart disease of [place] coronary artery without angina pectoris Code(s): I25.10 - Atherosclerotic heart disease of [place] coronary artery without angina pectoris (3) Fracture of tibia and fibula, open: Patient status post open reduction internal fixation. So far she has an uncomplicated course Status: Acute Qualifiers: Encounter type: initial encounter Laterality: right Open fracture type: open type I or II Qualified Code(s): S82.201B - Unspecified fracture of shaft of right tibia, initial encounter for open fracture type I or II; S82.401B - Unspecified fracture of shaft of right fibula, initial encounter for open fracture type I or II Code(s): S82.209B - Unspecified fracture of shaft of unspecified tibia, initial encounter for open fracture type I or II; S82.409B - Unspecified fracture of shaft of unspecified fibula, initial encounter for open fracture type I or II (4) Anemia: Closely monitor H&H. May require transfusion if the hemoglobin drops below 8. Status: Acute Qualifiers: Anemia type: other cause Other causes of anemia: acute posthemorrhagic Qualified Code(s): D62 - Acute posthemorrhagic anemia Code(s): D64.9 - Anemia, unspecified (5) Acute kidney injury: Kidney function is improving. May continue the careful hydration Status: Acute Code(s): N17.9 - Acute kidney failure, unspecified (6) Hypertension: Currently normotensive. Continue on the current medications. Status: Acute Qualifiers: Hypertension type: essential hypertension Qualified Code(s): I10 - Essential (primary) hypertension Code(s): I10 - Essential (primary) hypertension (7) Hyperlipidemia: May continue on the current management. 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 transplanted heart: [place] heart Fracture of tibia and fibula, open S82.201B; S82.401B Encounter type: initial encounter Laterality: right Open fracture type: open type I or II Anemia D62 Anemia type: other cause Other causes of anemia: acute posthemorrhagic Acute kidney injury N17.9 Hypertension I10 Hypertension type: essential hypertension Hyperlipidemia E78.2 Hyperlipidemia type: mixed hyperlipidemia
--- NOTE | 2019-09-04 10:39 | ANE.PACU2 ---
 Inpatient post-anesthesia follow up: Airway intact: Yes Vital signs: Temperature 97.2 F Pulse Rate [Monito r] 104 Pulse Rate 120 Respiratory Rate 13 Blood Pressure [Le ft Arm] 115/91 Blood Pressure [Ri ght Arm] 157/71 Blood Pressure 145/66 Pulse Oximetry 97 Oxygen Delivery Me thod Nasal Cannula Oxygen Flow Rate 2 Fraction of Inspir ed Oxygen Hydration adequate: Yes Nausea and vomiting: No Pain level: 8 Mental status: Baseline Additional Comments: patient currently stating her chronic back pain is more of an issue than her leg pain. pain is localized over incision sites of knee, rather than in calf. Thus will forego popliteal nerve block for now.
--- NOTE | 2019-09-04 12:56 | P.PN_ITS ---
Subjective Subjective: Interval history: Minnie reports she still has pain. Overall she has better. Medications: Reviewed: Yes Vitals/I&O/Wt Last Vital Signs Temp 97.2 F L 09/04/19 08:00 Pulse 98 09/04/19 12:00 Resp 10 L 09/04/19 12:00 BP 127/63 09/04/19 12:00 Pulse Ox 97 09/04/19 11:10 09/03/19 09/04/19 09/04/19 22:59 06:59 14:59 Intake Total 120 / 1520 920 / 2440 870 / 870 Output Total 750 / 2170 1000 / 3170 350 / 350 Balance -630 / -650 -80 / -730 520 / 520 Physical Exam Narrative: EXAM NARRATIVE: General exam no distress Cardiovascular heart rate improved, regular, no murmur Lungs clear Abdomen is soft with positive bowel sounds Extremities no cyanosis clubbing or edema, right lower extremity in boot/walker Urinary Catheter Management^: Russell: Cath Placed During This Visit: no Data : 09/04/19 03:55 09/04/19 03:55 Micro: Microbiology 09/02/19 05:35 Urine Culture - Preliminary Urine,Clean Catch Gram Negative Rods A&P Assessment and plan (1) Hyperkalemia: Significantly elevated on arrival. Resolved currently Status: Acute Code(s): E87.5 - Hyperkalemia (2) Acute kidney injury: Unknown if there is acute on chronic. Improving. Creatinine now 1.7 Status: Acute Code(s): N17.9 - Acute kidney failure, unspecified (3) Tibia and fibula open fracture, right: Postoperative day #1. Doing well. Still having quite a bit of pain. Continue OxyContin 15 mg every 6 hours. Add OxyIR 10 mg every 4 hours as needed. Continue Dilaudid but try to decrease dose. Transfer to second floor Continuous oxygen monitoring secondary to narcotic usage Status: Acute Qualifiers: Encounter type: initial encounter Open fracture type: open type I or II Qualified Code(s): S82.201B - Unspecified fracture of shaft of right tibia, initial encounter for open fracture type I or II; S82.401B - Unspecified fractu re of shaft of right fibula, initial encounter for open fracture type I or II Code(s): S82.201B - Unspecified fracture of shaft of right tibia, initial encounter for open fracture type I or II; S82.401B - Unspecified fracture of shaft of right fibula, initial encounter for open fracture type I or II (4) Urinary tract infection: Continue Rocephin. Growing gram-negative kiersten Status: Acute Code(s): N39.0 - Urinary tract infection, site not specified (5) Anemia: Follow closely. May be secondary to acute blood loss from open fracture. Stable Status: Acute Qualifiers: Anemia type: other cause Other causes of anemia: acute posthemorrhagic Qualified Code(s): D62 - Acute posthemorrhagic anemia Code(s): D64.9 - Anemia, unspecified Additional A&P Information Type 2 diabetes, sliding scale Hypertension. Increase metoprolol further Past history of CVA associated with coronary artery bypass grafting Coronary artery disease, with history of chest discomfort approximately 1 month ago. Nuclear stress test not performed as of yet Hypertension Hyperlipidemia Chronic pain syndrome on chronic narcotics. These were restarted Multiple other medical problems as outlined in past medical history SCD, aspirin for DVT prophylaxis currently. Consider increasing aspirin to twice daily tomorrow if renal function remains stable Will need skilled placement Laboratory tomorrow Attestations Medical Necessity Statement*: Needs continued hospital stay, for close monitoring following fracture repair. 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
--- NOTE | 2019-09-04 13:00 | PC.CHAP ---
Pastoral Care Encounter/Spiritual Assessment Type of Contact [] Declined prism measurer visit [] Patient/Family/Request visit [] Outpatient visit [] Follow-up visit [] Physician referral [] Code/Alert [x] Routine visit [] Staff referral [] Actively dying [] Patient sleeping [] Family support [] [] Out of room [] Palliative care [] [] Receiving care in room [] Pre-surgical visit [] Trauma [] Long length of stay [x] ICU visit [] Other: Relational/Emotional Strength [x] Patient feels connected with others/family/visitors/staff [] Distress [] Loneliness/isolation [] Abandonment Spirituality of Patient [x] Person of Ankita [] Attends Sabianist of their Ankita [x] Believes in Prayer [] Reads Bible or Taoist materials [] There are Spiritual issues to be addressed School Community Relations Coordinator Interventions [x] Prayer [x] Active listening [x] Non-anxious presence [x] Spiritual/emotional support [] Crisis/trauma care [] Spiritual counseling [] Bereavement support [] Provided bereavement packet [] Provided Bible/devotional materials [] Provided toy/stuffed animal, coloring book to patient or family member [] Provided Communion [] Anointing/[place] [] Salvation [] Completed spiritual assessment [] Other: Impact on Illness or Injury [] Angry [] Fearful [] Anxious [] Often cries [] Exhaustion [] Unable to work [] Unable to attend druze [] Unable to walk/stand [] Unable to read [] Unable to drive [] Unable to eat/drink [] Unable to sleep [] Unable to be with family [] Patient intubated [] Other: Summary The prism measurer visited the patient. THE PATIENT WAS IN PAIN AND THE MARINE RADIO INSTALLER AND SERVICER PRAYED FOR HER. Time spent with patient
[2019-09-04] MEDS: TRAMadol 50 mg Tablet PO (13:21)
--- NOTE | 2019-09-04 15:32 | PC.NURSE ---
report called to gerber rojas. questions answered.pt taken to floor
--- NOTE | 2019-09-04 15:57 | P.PN_ITS ---
Subjective Subjective: Interval history: The patient is seen in intensive care. She is awaiting transfer from the ICU to the floor. She is doing well. Medications: Reviewed: Yes Medication Review Details: Current Medications Aspirin (Aspirin Ec) 325 mg PO DAILY [facility] Docusate Sodium (Colace) 100 mg PO BID [facility] Last Admin: 09/03/19 18:04 Dose: 100 mg Documented by: Hydromorphone HCl (Dilaudid Inj) 1 - 2 mg IVP Q2H PRN PRN Reason: PAIN Last Admin: 09/04/19 08:25 Dose: 1 mg Documented by: Ceftriaxone Sodium 1,000 mg/ (Sodium Chloride) 50 mls @ 100 mls/hr IV Q24H [facility]; Protocol Last Infusion: 09/02/19 14:05 Dose: Infused Documented by: Sodium Chloride (Sodium Chloride 0.9%) 1,000 mls @ 50 mls/hr IV .Q20H [facility] Last Infusion: 09/04/19 07:49 Dose: 50 mls/hr Documented by: Metoprolol Tartrate (Lopressor) 25 mg PO BID [facility] Morphine Sulfate (Morphine) 4 mg IVP Q2H PRN PRN Reason: SEVERE PAIN Last Admin: 09/04/19 06:23 Dose: 4 mg Documented by: Morphine Sulfate (Morphine) 2 mg IVP Q4H PRN PRN Reason: SEVERE PAIN Last Admin: 09/03/19 03:32 Dose: 2 mg Documented by: Ondansetron HCl (Zofran) 4 mg IVP Q6H PRN PRN Reason: NAUSEA AND VOMITING Ondansetron HCl (Zofran) 4 mg IVP Q4H PRN PRN Reason: vomiting, or N/V if npo Oxycodone HCl (Oxycodone Ir) 15 mg PO Q6H [facility] Last Admin: 09/04/19 04:04 Dose: 15 mg Documented by: Tizanidine HCl (Zanaflex) 8 mg PO BEDTIME [facility] Last Admin: 09/03/19 22:56 Dose: Not Given Documented by: Tramadol HCl (Ultram) 50 mg PO Q4H PRN PRN Reason: MILD TO MODERATE PAIN Vitals/I&O/Wt Last Vital Signs Temp 98.9 F 09/04/19 15:10 Pulse 105 H 09/04/19 14:00 Resp 11 L 09/04/19 15:00 BP 135/70 09/04/19 14:00 Pulse Ox 97 09/04/19 15:00 09/04/19 09/04/19 09/04/19 06:59 14:59 22:59 Intake Total 920 / 2440 870 / 870 Output Total 1000 / 3170 350 / 350 Balance -80 / -730 520 / 520 Physical Exam Const: COMMON NORMALS: no apparent distress, oriented x3 and alert EXAM LIMITATIONS: no altered mental status GENERAL APPEARANCE: cooperative, comfortable and appears older than stated age NUTRITIONAL APPEARANCE: obese ORIENTATION/CONSCIOUSNESS: Yes awake, Yes oriented to person, Yes oriented to place and Yes oriented to time HENMT: COMMON NORMALS: normocephalic and head/scalp atraumatic HEAD & SCALP: normocephalic and atraumatic Eye: GENERAL EYE: normal appearance of both eyes Chest: COMMONS NORMALS: inspection of chest normal Resp: COMMON NORMALS: normal respiratory effort EFFORT & INSPECTION: Yes able to speak in complete sentences and Yes symmetric chest movement Extremity: NARRATIVE EXTREMITY EXAM: The patient's cam walker boot is removed. Dressings are removed including the Chase wrap, soft roll, and Telfa. There is minimal swelling. The patient is neurologically intact. The calf is soft and nontender. There is no evidence of DVT. Neuro: COMMON NORMALS: oriented x3 SENSORIUM/ORIENTATION: Yes alert, Yes oriented to person, Yes oriented to place and Yes oriented to time Psych: COMMON NORMALS: mental status grossly normal APPEARANCE: Yes grossly normal ATTITUDE: Yes calm and Yes engaged ATTENTION/CONCENTRATION: Yes attention grossly intact Skin: COMMON NORMALS: no rashes or lesions noted GENERAL SKIN EXAM: no rashes or lesions noted Urinary Catheter Management^: Russell: Cath Placed During This Visit: yes Urethral Indwelling: Yes Reason for Continuing Indwelling Catheter: Accurate Measurement of Urinary Output in Critically Ill Patients Urinary Catheter Date of Insertion: 09/02/19 Urinary Catheter Time of Insertion: 06:06 Data : 09/04/19 03:55 09/04/19 03:55 Micro: Microbiology 09/02/19 05:35 Urine Culture - Preliminary Urine,Clean Catch Gram Negative Rods A&P Assessment and plan (1) Tibia and fibula open fracture, right: Patient is doing well. She is working with physical therapy, and she unde rstands she is to remain nonweightbearing. Her dressings and boot are removed today. The wounds are benign. There is no drainage or evidence of infection. The patient is neurologically intact. Her calf is soft and nontender with no evidence of DVT. There is no evidence of infection. Status: Acute Qualifiers: Encounter type: initial encounter Open fracture type: open type I or II Qualified Code(s): S82.201B - Unspecified fracture of shaft of right tibia, initial encounter for open fracture type I or II; S82.401B - Unspecified fracture of shaft of right fibula, initial encounter for open fracture type I or II Code(s): S82.201B - Unspecified fracture of shaft of right tibia, initial encounter for open fracture type I or II; S82.401B - Unspecified fracture of shaft of right fibula, initial encounter for open fracture type I or II Attestations Medical Necessity Statement*: Per hospitalist service. Coding Level of Care Code Acute Refinery Operator Reforming Unit for [facility] Mallory Diagnoses Tibia and fibula open fracture, right S82.201B; S82.401B Encounter type: initial encounter Open fracture type: open type I or II
[2019-09-04] MEDS: sodium chloride 0.9% 1,000 ML 50 ML IV (17:36)
[2019-09-04] MEDS: tizanidine 4 mg Tablet 8 MG PO (21:44)
[2019-09-04] MEDS: insulin glargine 100 units/1 mL 30 UNIT SUBCUT (22:25)
[2019-09-05] VITALS (22 sets, daily range): BP systolic 93–134; BP diastolic 53–80; PULSE 79–114; RESP 12–22; TEMP 36.6–37.4; O2SAT 91–99
[2019-09-05 01:43] LABS: Glucose Point of Care 227 mg/dL (70-110)
[2019-09-05] MEDS: oxyCODONE 5 mg IR Tab/Cap 15 MG PO ×4 (04:08→21:16)
[2019-09-05 05:55] LABS: Basophils # 0.1 10^3/uL (0.0-0.1); Eosinophils # 0.4 10^3/uL (0.0-0.8); Eosinophils % 6.1 %; Hematocrit 24.2 % (37.0-47.0); Hemoglobin 7.4 g/dL (11.5-15.3); Lymphocytes # 1.2 10^3/uL (0.8-4.8); Lymphocytes % 20.8 %; Mean Corpuscular HGB Conc 30.6 g/dL (30.0-36.0); Mean Corpuscular Hemoglobin 29.5 pg (28.0-34.0); Mean Corpuscular Volume 96.4 fL (81-99); Mean Platelet Volume 11.2 fL (7.4-10.4); Monocytes # 0.4 10^3/uL (0.2-0.9); Monocytes % 6.4 %; Neutrophils # 3.8 10^3/uL (1.8-7.7); Neutrophils % 65.4 %; Nucleated Red Blood Cells % 0 %; Platelet Count 92 10^3/cmm (130-400); Red Blood Count 2.51 10^6/uL (4.1-5.3); Red Cell Distribution Width 15.6 % (12.1-15.1); White Blood Count 5.8 10^3/uL (4.0-10.0)
[2019-09-05 06:11] LABS: Anion Gap 12.4 (5-19); Blood Urea Nitrogen 15 mg/dL (6-20); Calcium 8.6 mg/dL (8.5-10.5); Carbon Dioxide 23 mmol/L (22-29); Chloride 105 mmol/L (98-107); Glomerular Filtration Rate 46.1 mL/min (90-130); Glucose 267 mg/dL (65-115); Osmolality Calculated 288 mOsm/kg (285-295); Potassium 4.4 mmol/L (3.5-5.1); Sodium 136 mmol/L (136-145)
[2019-09-05 06:24] LABS: Glucose Point of Care 266 mg/dL (70-110)
[2019-09-05] MEDS: HYDROmorphone 1 mg/mL INJ 1 mL IVP (07:25)
[2019-09-05] MEDS: pregabalin 100 mg Capsule 200 MG PO ×2 (08:59→17:05)
[2019-09-05] MEDS: docusate sodium 100 mg Capsule PO ×2 (08:59→17:05)
[2019-09-05] MEDS: aspirin 325 mg EC Tablet PO (08:59)
[2019-09-05] MEDS: sodium chloride 0.9% 100 ML (09:06)
--- NOTE | 2019-09-05 09:10 | PC.NURSE ---
Prn metoprolol Patient noted to have a bp of 93/58, hr 107, md notified and noted to state to give one time dose of metoprolol 12.5, do not give 25mg metoprolol this am, resume this evening dose.
[2019-09-05] MEDS: metoprolol tartrate 25 mg Tablet 12.5 MG PO (09:15)
--- NOTE | 2019-09-05 10:52 | P.PN_ITS ---
Subjective Subjective: Interval history: Patient is a repeat hemoglobin was found to be 7.4. Currently she is receiving blood transfusion. Her heart rate is coming down and has been staying in the 100-110 range. This morning the blood pressure was in the 90s. For that reason, the dose of the metoprolol was cut back to 12.5 mg. She denies any chest pain or shortness of breath. No other specific complaints. The pain at the surgical site seems to be improving Medications: Reviewed: Yes Medication Review Details: Current Medications Dextrose (D50w) 25 ml IVP ONCE PRN; Protocol PRN Reason: hypoglycemia protocol Dextrose (D50w) 50 ml IVP PRN PRN; Protocol PRN Reason: hypoglycemia protocol Docusate Sodium (Colace) 100 mg PO BID [facility] Last Admin: 09/05/19 08:59 Dose: 100 mg Documented by: Glucagon (Glucagen) 1 mg IM ONCE PRN; Protocol PRN Reason: Adult Acute Hypoglycemia Prot. Hydromorphone HCl (Dilaudid Inj) 1 - 2 mg IVP Q2H PRN PRN Reason: PAIN Last Admin: 09/05/19 07:25 Dose: 1 mg Documented by: Ceftriaxone Sodium 1,000 mg/ (Sodium Chloride) 50 mls @ 100 mls/hr IV Q24H [facility]; Protocol Last Infusion: 09/04/19 10:06 Dose: Infused Documented by: Sodium Chloride (Sodium Chloride 0.9%) 1,000 mls @ 50 mls/hr IV .Q20H [facility] Last Admin: 09/04/19 17:36 Dose: 50 mls/hr Documented by: Dextrose (D5w) 500 mls @ 100 mls/hr IV ONCE PRN; Protocol PRN Reason: Adult Acute Hypoglycemia Prot Insulin Aspart (Novolog) 0 unit SUBCUT TIDWM [facility]; Protocol Last Admin: 09/05/19 08:59 Dose: 10 unit Documented by: Insulin Glargine (Lantus) 30 unit SUBCUT BEDTIME [facility] Last Admin: 09/04/19 22:25 Dose: 30 unit Documented by: Metoprolol Tartrate (Lopressor) 25 mg PO BID [facility] Last Admin: 09/05/19 09:09 Dose: Not Given Documented by: Ondansetron HCl (Zofran) 4 mg IVP Q6H PRN PRN Reason: NAUSEA AND VOMITING Ondansetron HCl (Zofran) 4 mg IVP Q4H PRN PRN Reason: vomiting, or N/V if npo Oxycodone HCl (Oxycodone Ir) 15 mg PO Q6H [facility] Last Admin: 09/05/19 09:52 Dose: 15 mg Documented by: Oxycodone HCl (Oxycodone Ir) 10 mg PO Q4H PRN PRN Reason: SEVERE PAIN Pantoprazole Sodium (Protonix) 40 mg IVP Q12H [facility] Tizanidine HCl (Zanaflex) 8 mg PO BEDTIME [facility] Last Admin: 09/04/19 21:44 Dose: 8 mg Documented by: Tramadol HCl (Ultram) 50 mg PO Q4H PRN PRN Reason: MILD TO MODERATE PAIN Last Admin: 09/04/19 13:21 Dose: 50 mg Documented by: Vitals/I&O/Wt Last Vital Signs Temp 99.0 F 09/05/19 08:56 Pulse 107 H 09/05/19 08:56 Resp 20 H 09/05/19 10:00 BP 93/53 09/05/19 08:56 Pulse Ox 97 09/05/19 08:24 09/04/19 09/05/19 09/05/19 22:59 06:59 14:59 Intake Total 790 / 1660 370 / 2030 720 / 720 Output Total 1200 / 1550 Balance 790 / 1310 -830 / 480 720 / 720 Physical Exam Narrative: EXAM NARRATIVE: GENERAL: The patient is alert and oriented times three. Not in any acute distress HEENT: No significant pallor, icterus or lymphadenopathy.Oral cavity: There are no mucous membrane lesions. NECK: Trachea appears to be central. No masses noted. No JVD or thyromegaly appreciated. RESPIRATORY: Chest is symmetrical. No intercostals muscle retraction or any accessory muscle activation. There is no chest wall tenderness. Breath sounds are heard bilaterally. No rales or rhonchi heard. No evidence of any consolidation. BREASTS: Deferred. HEART: The heart sounds are normal. No S3 or S4. Murmurs. No pericardial rub ABDOMEN: No vessel pulsations or distention. No tenderness. No organomegaly appreciated. Bowel sounds are normally heard. : Deferred. RECTAL: Deferred. LYMPHATIC: No lymphadenopathy noted in the neck or groin. EXTREMITIES: No edema or cyanosis. No clubbing. MUSCULOSKELETAL: Status post open reduction internal fixation of the right lower extremity SKIN: There are no significant scars or skin rash noted. NEUROPSYCHIATRIC: The patient is alert and oriented x3. Appears to be in a good mood. No tremors or rigidity noted. Urinary Catheter Management^: Russell: Cath Placed During This Visit: yes Urethral Indwelling: Yes Reason for Continuing Indwelling Catheter: Accurate Measurement of Urinary Output in Critically Ill Patients Urinary Catheter Date of Insertion: 09/02/19 Urinary Catheter Time of Insertion: 06:06 Data : 09/05/19 05:46 09/05/19 05:46 Micro: Abnormal lab results 09/03/19 09/05/19 09/05/19 Range/Units 05:41 05:46 05:46 RBC 2.51 L (4.1-5.3) 10^6/uL Hgb 7.4 L (11.5-15.3) g/dL Hct 24.2 L (37.0-47.0) % RDW 15.6 H (12.1-15.1) % Plt Count 92 L (130-400) 10^3/cmm MPV 11.2 H (7.4-10.4) fL Creatinine 1.2 H (0.5-0.9) mg/dL GFR Calculation 46.1 L (90-130) mL/min Glucose 267 H (65-115) mg/dL Crossmatch See Detail Microbiology 09/02/19 05:35 Urine Culture - Preliminary Urine,Clean Catch Gram Negative Rods A&P Assessment and plan (1) Sinus tachycardia: Most likely this is from the blood loss anemia, pain and other comorbid conditions. Her heart rate seems to be improving. She has no chest pain or shortness of breath. May continue on the current measures. Status: Acute Code(s): R00.0 - Tachycardia, unspecified (2) Atherosclerotic heart disease of [place] coronary artery without angina pectoris: Patient with history of coronary artery disease and coronary artery bypass surgery, currently remaining stable. No specific cardiac symptoms. Continue on the current medications. Status: Acute Qualifiers: [place] vs. transplanted heart: [place] heart Qualified Code(s): I25.10 - Atherosclerotic heart disease of [place] coronary artery without angina pectoris Code(s): I25.10 - Atherosclerotic heart disease of [place] coronary artery without angina pectoris (3) Fracture of tibia and fibula, open: Patient status post open reduction internal fixation. So far she has an uncomplicated course Status: Acute Qualifiers: Encounter type: initial encounter Laterality: right Open fracture type: open type I or II Qualified Code(s): S82.201B - Unspecified fracture of shaft of right tibia, initial encounter for open fracture type I or II; S82.401B - Unspecified fracture of shaft of right fibula, initial encounter for open fracture type I or II Code(s): S82.209B - Unspecified fracture of shaft of unspecified tibia, initial encounter for open fracture type I or II; S82.409B - Unspecified fracture of shaft of unspecified fibula, initial encounter for open fracture type I or II (4) Anemia: Agree with the blood transfusion. Continue on the other current measures. Status: Acute Qualifiers: Anemia type: other cause Other causes of anemia: acute posthemorrhagic Qualified Code(s): D62 - Acute posthemorrhagic anemia Code(s): D64.9 - Anemia, unspecified (5) Acute kidney injury: Kidney function is improving. May continue the careful hydration Status: Acute Code(s): N17.9 - Acute kidney failure, unspecified (6) Hypertension: Currently normotensive. Continue on the current medications. Status: Acute Qualifiers: Hypertension type: essential hypertension Qualified Code(s): I10 - Essential (primary) hypertension Code(s): I10 - Essential (primary) hypertension (7) Hyperlipidemia: May continue on the current management. Status: Acute Qualifiers: Hyperlipidemia type: mixed hyperlipidemia Qualified Code(s): E78.2 - Mixed hyperlipidemia Code(s): E78.5 - Hyperlipidemia, unspecified Additional A&P Information Her other problems are #1 history of LV dysfunction #2 essential benign hypertension, currently normotensive #3 dyslipidemia Patient need to be on telemetry. The dose of the metoprolol may be adjusted based on the blood pressure. 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 transplanted heart: [place] heart Fracture of tibia and fibula, open S82.201B; S82.401B Encounter type: initial encounter Laterality: right Open fracture type: open type I or II Anemia D62 Anemia type: other cause Other causes of anemia: acute posthemorrhagic Acute kidney injury N17.9 Hypertension I10 Hypertension type: essential hypertension Hyperlipidemia E78.2 Hyperlipidemia type: mixed hyperlipidemia
[2019-09-05 11:33] LABS: Glucose Point of Care 206 mg/dL (70-110)
[2019-09-05] MEDS: cefTRIAXone 1,000 MG in sodium chloride 0.9% (plus) 50 ML 100 MG IV (12:08)
[2019-09-05] MEDS: pantoprazole 40 mg SDV IVP ×2 (12:08→21:16)
[2019-09-05] MEDS: TRAMadol 50 mg Tablet PO (12:23)
[2019-09-05] MEDS: sodium chloride 0.9% 1,000 ML 50 ML IV (13:36)
--- NOTE | 2019-09-05 14:05 | PM.PN ---
Subjective Subjective: Interval history: Minnie reports she is still in quite a bit of pain. She reports she does feel better than yesterday. She denies any pain in her abdomen, and has no nausea or vomiting. She reports no blood in her stool. She reports her pain is in her low back which is chronic and significant pain in her right lower extremity which was operated on. Orthopedics is reviewed this and examined her operative site. Medications: Reviewed: Yes Vitals/I&O/Wt Last Vital Signs Temp 99.3 F 09/05/19 11:30 Pulse 103 H 09/05/19 11:30 Resp 18 09/05/19 11:30 BP 111/69 09/05/19 11:30 Pulse Ox 93 09/05/19 11:24 09/04/19 09/05/19 09/05/19 22:59 06:59 14:59 Intake Total 790 / 1660 370 / 2030 960 / 960 Output Total 1200 / 1550 Balance 790 / 1310 -830 / 480 960 / 960 Physical Exam Narrative: EXAM NARRATIVE: General exam no distress Cardiovascular heart rate improved, regular, no murmur Lungs clear Abdomen is soft with positive bowel sounds Extremities no cyanosis clubbing or edema. Dressing right lower extremity. Orthopedics has reviewed this. Urinary Catheter Management^: Russell: Cath Placed During This Visit: yes Urethral Indwelling: Yes Reason for Continuing Indwelling Catheter: Accurate Measurement of Urinary Output in Critically Ill Patients Urinary Catheter Date of Insertion: 09/02/19 Urinary Catheter Time of Insertion: 06:06 Data : 09/05/19 05:46 09/05/19 05:46 Micro: Microbiology 09/02/19 05:35 Urine Culture - Final Urine,Clean Catch Escherichia coli esbl A&P Assessment and plan (1) Hyperkalemia: Significantly elevated on arrival. Resolved currently Status: Acute Code(s): E87.5 - Hyperkalemia (2) Acute kidney injury: And is likely nearing baseline Status: Acute Code(s): N17.9 - Acute kidney failure, unspecified (3) Tibia and fibula open fracture, right: Postoperative day #2. Doing well. Unfortunately still having quite a bit of pain. Continue OxyContin 15 mg every 6 hours. Add OxyIR 10 mg every 4 hours as needed. Continue current medications. Stop Rocephin. Initiating Primaxin secondary to ESBL UTI Status: Acute Qualifiers: Encounter type: initial encounter Open fracture type: open type I or II Qualified Code(s): S82.201B - Unspecified fracture of shaft of right tibia, initial encounter for open fracture type I or II; S82.401B - Unspecified fracture of shaft of right fibula, initial encounter for open fracture type I or II Code(s): S82.201B - Unspecified fracture of shaft of right tibia, initial encounter for open fracture type I or II; S82.401B - Unspecified fracture of shaft of right fibula, initial encounter for open fracture type I or II (4) Urinary tract infection: On Rocephin. She has grown ESBL. Will place a PIC. Initiate Primaxin. Status: Acute Code(s): N39.0 - Urinary tract infection, site not specified (5) Anemia: Lower today. Transfuse 1 unit. No other obvious bleeding sites noted but will discontinue aspirin for now and start Protonix. Monitor for any occult bleeding by checking stool Hemoccult. Consider adding aspirin back if no evidence of bleeding on Hemoccult for DVT prophylaxis purposes Status: Acute Qualifiers: Anemia type: other cause Other causes of anemia: acute posthemorrhagic Qualified Code(s): D62 - Acute posthemorrhagic anemia Code(s): D64.9 - Anemia, unspecified Additional A&P Information Type 2 diabetes, sliding scale Hypertension. Continue metoprolol Past history of CVA associated with coronary artery bypass grafting Coronary artery disease, with history of chest discomfort approximately 1 month ago. Nuclear stress test not performed as of yet Hypertension Hyperlipidemia Chronic pain syndrome on chronic narcotics. These were restarted Multiple other medical problems as outlined in past medical history SCD, aspirin for DVT prophylaxis currently. Will need skilled placement Attestations Medical Necessity Statement*: Needs continued hospital stay for close monitoring following open fracture repair. 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
[2019-09-05 15:29] LABS: Glucose Point of Care 228 mg/dL (70-110)
--- NOTE | 2019-09-05 15:51 | P.PN_ITS ---
Subjective Subjective: Interval history: The patient is doing well. She does complain of significant pain, and she has had difficulties getting out of bed. She is in good spirits. She understands she will require [facility] on discharge. Medications: Reviewed: Yes Vitals/I&O/Wt Last Vital Signs Temp 99.1 F 09/05/19 14:53 Pulse 110 H 09/05/19 14:53 Resp 18 09/05/19 14:53 BP 122/74 09/05/19 14:53 Pulse Ox 91 09/05/19 14:53 09/05/19 09/05/19 09/05/19 06:59 14:59 22:59 Intake Total 370 / 2030 960 / 960 Output Total 1200 / 1550 Balance -830 / 480 960 / 960 Physical Exam Const: COMMON NORMALS: no apparent distress, oriented x3 and alert EXAM LIMITATIONS: no altered mental status GENERAL APPEARANCE: cooperative, comfortable and appears older than stated age NUTRITIONAL APPEARANCE: obese ORIENTATION/CONSCIOUSNESS: Yes awake, Yes oriented to person, Yes oriented to place and Yes oriented to time HENMT: COMMON NORMALS: normocephalic and head/scalp atraumatic HEAD & SCALP: normocephalic and atraumatic Eye: GENERAL EYE: normal appearance of both eyes Chest: COMMONS NORMALS: inspection of chest normal Resp: COMMON NORMALS: normal respiratory effort EFFORT & INSPECTION: Yes able to speak in complete sentences and Yes symmetric chest movement Cardio: OTHER: The patient was evaluated by Dr. Gallardo. Extremity: NARRATIVE EXTREMITY EXAM: The patient's cam walker boot is removed again today. There is minimal swelling. The patient is neurologically intact. The calf is soft, but the patient complains of tenderness with any attempts at palpation or even light touch. There is no drainage or evidence of infection.. There is no evidence of DVT. Neuro: COMMON NORMALS: oriented x3 SENSORIUM/ORIENTATION: Yes alert, Yes oriented to person, Yes oriented to place and Yes oriented to time Psych: COMMON NORMALS: mental status grossly normal APPEARANCE: Yes grossly normal ATTITUDE: Yes calm and Yes engaged ATTENTION/CONCENTRATION: Yes attention grossly intact Skin: COMMON NORMALS: no rashes or lesions noted GENERAL SKIN EXAM: no rashes or lesions noted Urinary Catheter Management^: Russell: Cath Placed During This Visit: yes Urethral Indwelling: Yes Reason for Continuing Indwelling Catheter: Accurate Measurement of Urinary Output in Critically Ill Patients Urinary Catheter Date of Insertion: 09/02/19 Urinary Catheter Time of Insertion: 06:06 Data : 09/05/19 05:46 09/05/19 05:46 Micro: Microbiology 09/02/19 05:35 Urine Culture - Final Urine,Clean Catch Escherichia coli esbl A&P Assessment and plan (1) Tibia and fibula open fracture, right: The patient is encouraged to work with physical therapy. She has been reluctant, but she is to remain touchdown weightbearing. She is in a cam walker boot which will be refitted to her. The wounds are benign. There is no drainage or evidence of infection. The patient is neurologically intact. Her calf is soft and nontender with no evidence of DVT. Patient's H&H is discussed with Dr. Arvizu as she is not bleeding from her wounds at this time. She did have significant blood loss at the time of initial injury however. Status: Acute Qualifiers: Encounter type: initial encounter Open fracture type: open type I or II Qualified Code(s): S82.201B - Unspecified fracture of shaft of right tibia, initial encounter for open fracture type I or II; S82.401B - Unspecified fracture of shaft of right fibula, initial encounter for open fracture type I or II Code(s): S82.201B - Unspecified fracture of shaft of right tibia, initial encounter for open fracture type I or II; S82.401B - Unspecified fracture of shaft of right fibula, initial encounter for open fracture type I or II Attestations Medical Necessity Statement*: Per hospitalist service. Patient from an orthopedic perspective is ready for discharge to [place] [facility]. 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
--- NOTE | 2019-09-05 16:34 | PC.OT ---
OT note: Attempted early afternoon and pt reported attempts were being made to get an IV in and requested to wait until after IV and after 1600 as that is when she should receive next pain medication dose. Returned at 1630 and nursing was attempting to insert line. Will hold this date and attempt again tomorrow.
[2019-09-05 16:47] LABS: Glucose Point of Care 194 mg/dL (70-110)
--- NOTE | 2019-09-05 17:22 | PC.PT ---
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 pt unable to receive any pain meds due to IV site failed. Was able to get pt heel to base of CAM boot.
[2019-09-05 19:59] LABS: Glucose Point of Care 252 mg/dL (70-110)
[2019-09-05] MEDS: insulin glargine 100 units/1 mL 30 UNIT SUBCUT (22:28)
[2019-09-06] VITALS (11 sets, daily range): BP systolic 113–134; BP diastolic 73–83; PULSE 88–133; RESP 16–21; TEMP 36.7–37.4; O2SAT 94–97
[2019-09-06] MEDS: sodium chloride 0.9% 1,000 ML 50 ML IV (02:16)
[2019-09-06] MEDS: oxyCODONE 5 mg IR Tab/Cap 15 MG PO ×4 (03:12→21:38)
--- NOTE | 2019-09-06 03:44 | ECG_ITS ---
Measurements Intervals [place] Rate: 91 P: 48 CA: 201 QRS: -33 QRSD: 139 T: 20 QT: 383 QTc: 472 SINUS RHYTHM WITH OCCASIONAL SUPRAVENTRICULAR PREMATURE COMPLEXES INTRAVENTRICULAR CONDUCTION DELAY [130+ ms QRS DURATION] POSSIBLE ANTERIOR MYOCARDIAL INFARCTION [30 ms Q WAVE IN V3/V4, OR R < 0.2 mV V4], PROBABLY OLD INFERIOR MYOCARDIAL INFARCTION [40+ ms Q WAVE AND/OR ST/T ABNORMALITY IN II/aV II/aVF] OF INDETERMINATE AGE Compared to ECG 09/02/2019 11:23:33 Intraventricular conduction delay now present Sinus arrhythmia no longer present T-wave abnormality no longer present Possible ischemia no longer present Electronically Signed On 09-06-2019 16:31:16 CHIEF ELECTRICIAN by Abram Zamora M.D. [email or web address]
[2019-09-06 04:03] LABS: Glucose Point of Care 188 mg/dL (70-110)
[2019-09-06 04:18] LABS: Basophils # 0.1 10^3/uL (0.0-0.1); Basophils % 1.2 %; Eosinophils # 0.4 10^3/uL (0.0-0.8); Eosinophils % 5.9 %; Hematocrit 30.6 % (37.0-47.0); Hemoglobin 9.2 g/dL (11.5-15.3); Lymphocytes # 1.7 10^3/uL (0.8-4.8); Lymphocytes % 27.9 %; Mean Corpuscular HGB Conc 30.1 g/dL (30.0-36.0); Mean Corpuscular Hemoglobin 30.6 pg (28.0-34.0); Mean Corpuscular Volume 101.7 fL (81-99); Mean Platelet Volume 11.1 fL (7.4-10.4); Monocytes # 0.5 10^3/uL (0.2-0.9); Monocytes % 8.5 %; Neutrophils # 3.4 10^3/uL (1.8-7.7); Neutrophils % 56.2 %; Nucleated Red Blood Cells % 0 %; Platelet Count 109 10^3/cmm (130-400); Red Blood Count 3.01 10^6/uL (4.1-5.3); Red Cell Distribution Width 15.9 % (12.1-15.1)
[2019-09-06 04:42] LABS: Blood Urea Nitrogen 18 mg/dL (6-20); Calcium 8.9 mg/dL (8.5-10.5); Carbon Dioxide 21 mmol/L (22-29); Chloride 104 mmol/L (98-107); Glomerular Filtration Rate 42.1 mL/min (90-130); Glucose 226 mg/dL (65-115); Osmolality Calculated 286 mOsm/kg (285-295); Sodium 136 mmol/L (136-145)
[2019-09-06] MEDS: dilTIAZem 30 mg Tablet PO ×5 (04:44→20:13)
[2019-09-06] MEDS: metoprolol tartrate 1 mg/1 mL SDV 5 mL 5 MG (04:45)
[2019-09-06 06:16] LABS: Glucose Point of Care 235 mg/dL (70-110)
[2019-09-06] MEDS: pregabalin 100 mg Capsule 200 MG PO ×2 (08:32→19:25)
[2019-09-06] MEDS: docusate sodium 100 mg Capsule PO ×2 (08:33→19:26)
[2019-09-06] MEDS: metoprolol tartrate 25 mg Tablet PO (08:33)
[2019-09-06] MEDS: pantoprazole 40 mg SDV IVP ×2 (08:33→20:13)
[2019-09-06 10:58] LABS: Glucose Point of Care 227 mg/dL (70-110)
--- NOTE | 2019-09-06 12:45 | SUR.PREOP ---
PICC NOTE In to discuss picc line placement with the patient. Patient doesn't feel well and wants to hold off on the line placement at this time. Will reassess at a later time.
[2019-09-06] MEDS: TRAMadol 50 mg Tablet PO (12:47)
[2019-09-06 17:06] LABS: Glucose Point of Care 188 mg/dL (70-110)
--- NOTE | 2019-09-06 17:25 | XRR_ITS ---
PROCEDURE INFORMATION: Exam: XR Chest, 1 View Exam date and time: 09/06/2019 5:26 PM Age: 59 years old Clinical indication: Device placement; Picc; Additional info: Picc line placement TECHNIQUE: Imaging protocol: XR of the chest Views: 1 view. COMPARISON: CR XR chest 1V portable [id number] 09/02/2019 6:41 AM FINDINGS: Lungs: Unremarkable. No consolidation. Pleural space: Unremarkable. No pleural effusion. No pneumothorax. Heart/Mediastinum: Unremarkable. No cardiomegaly. Bones/joints: Metallic sternotomy wires are in place. XR/XR chest 1V portable [id number] IMPRESSION: No acute findings. Metallic sternotomy wires
--- NOTE | 2019-09-06 18:33 | PM.PN ---
Subjective Subjective: Interval history: She reports being bothered by her chronic back pain. Having difficulty finding a comfortable position. Reports experiencing intermittent palpitations. Vitals/I&O/Wt Last Vital Signs Temp 98.1 F 09/06/19 15:33 Pulse 110 H 09/06/19 15:33 Resp 18 09/06/19 15:33 BP 121/79 09/06/19 15:33 Pulse Ox 94 09/06/19 15:33 09/06/19 09/06/19 09/06/19 06:59 14:59 22:59 Intake Total 882.5 / 3312.5 840 / 840 307.5 / 1147.5 Output Total 1200 / 1750 900 / 900 Balance -317.5 / 1562.5 -60 / -60 307.5 / 247.5 Physical Exam Const: COMMON NORMALS: no apparent distress and oriented x3 HENMT: COMMON NORMALS: oropharynx normal Neck/C-Spine: COMMON NORMALS: no JVD Resp: COMMON NORMALS: normal respiratory effort and clear to auscultation bilaterally AUSCULTATION: clear to auscultation bilaterally Cardio: COMMON NORMALS: no JVD, regular rhythm, S1 normal heart sound, S2 normal heart sound and no murmurs RHYTHM: regular rhythm HEART SOUNDS: S1 normal and S2 normal GI: COMMON NORMALS: normal to inspection, nondistended, normoactive bowel sounds, soft to palpation and non-tender PALPATION: Yes soft Extremity: COMMON NORMALS: no joint enlargement and no pedal edema NARRATIVE EXTREMITY EXAM: Right lower extremity in surgical boot. Wound on anterior lower leg clean, with intact sutures, no erythema, no drainage or bleeding. Neuro: COMMON NORMALS: oriented x3 and moves all extremities Skin: COMMON NORMALS: no rashes or lesions noted GENERAL SKIN EXAM: no rashes or lesions noted Urinary Catheter Management^: Russell: Cath Placed During This Visit: yes Urethral Indwelling: Yes Reason for Continuing Indwelling Catheter: Accurate Measurement of Urinary Output in Critically Ill Patients Urinary Catheter Date of Insertion: 09/02/19 Urinary Catheter Time of Insertion: 06:06 Data : 09/06/19 04:05 09/06/19 04:05 Micro: Microbiology 09/02/19 05:35 Urine Culture - Final Urine,Clean Catch Escherichia coli esbl A&P Assessment and plan (1) Urinary tract infection: Continue Primaxin at this time for ESBL UTI. Would need another 4 days of antibiotic. Possibility of continuation by PIV was considered, however, IV access was lost today. This does not appear to be a reliable option. Due to this a midline catheter is requested. Status: Acute Code(s): N39.0 - Urinary tract infection, site not specified (2) Hyperkalemia: Significantly elevated on arrival. Resolved Status: Acute Code(s): E87.5 - Hyperkalemia (3) Acute kidney injury: Improved. Creatinine level thought to be likely close to baseline Status: Acute Code(s): N17.9 - Acute kidney failure, unspecified (4) Tibia and fibula open fracture, right: Continue symptomatic management of pain. Pending placement to SNF for continued rehabilitation. Currently not on pharmacologic DVT prophylaxis. Continue SCD. Required transfusion, monitor hemoglobin for now, if stable discussed with orthopedics, and would prefer to restart at least a daily aspirin if this were feasible. Status: Acute Qualifiers: Encounter type: initial encounter Open fracture type: open type I or II Qualified Code(s): S82.201B - Unspecified fracture of shaft of right tibia, initial encounter for open fracture type I or II; S82.401B - Unspecified fracture of shaft of right fibula, initial encounter for open fracture type I or II Code(s): S82.201B - Unspecified fracture of shaft of right tibia, initial encounter for open fracture type I or II; S82.401B - Unspecified fracture of shaft of right fibula, initial encounter for open fracture type I or II (5) Anemia: Status post transfusion 1 unit. BC with very good response. Monitor for now. Continue Protonix for now. Hemoccult has not been collected. She is aware to notify nursing staff to collect the sample. Status: Acute Qualifiers: Anemia type: other cause Other causes of anemia: acute posthemorrhagic Qualified Code(s): D62 - Acute posthemorrhagic anemia Code(s): D64.9 - Anemia, unspecified Additional A&P Information Type 2 diabetes, sliding scale Hypertension. Continue metoprolol Past history of CVA associated with coronary artery bypass grafting Coronary artery disease, with history of chest discomfort approximately 1 month ago. Nuclear stress test not performed as of yet Hypertension Hyperlipidemia Chronic pain syndrome on chronic narcotics. These were restarted. Continue stool softener. Add senna. Multiple other medical problems as outlined in past medical history Attestations Medical Necessity Statement*: Continue admission for assessment management of acute blood loss anemia, ESBL urinary tract infection, placement to rehabilitation for tibial/fibula open fracture and repair. Coding Level of Care Code Acute Museum Assistant for [facility] Diagnoses Urinary tract infection N39.0 Hyperkalemia E87.5 Acute kidney injury N17.9 Tibia and fibula open fracture, right S82.201B; S82.401B Encounter type: initial encounter Open fracture type: open type I or II Anemia D62 Anemia type: other cause Other causes of anemia: acute posthemorrhagic
--- NOTE | 2019-09-06 19:08 | P.PN_ITS ---
Subjective Subjective: Interval history: Heart rate vvaries between 90-110. Still in A. fib. Denies any complain. Medications: Reviewed: Yes Medication Review Details: Current Medications Dextrose (D50w) 25 ml IVP ONCE PRN; Protocol PRN Reason: hypoglycemia protocol Dextrose (D50w) 50 ml IVP PRN PRN; Protocol PRN Reason: hypoglycemia protocol Docusate Sodium (Colace) 100 mg PO BID [facility] Last Admin: 09/05/19 08:59 Dose: 100 mg Documented by: Glucagon (Glucagen) 1 mg IM ONCE PRN; Protocol PRN Reason: Adult Acute Hypoglycemia Prot. Hydromorphone HCl (Dilaudid Inj) 1 - 2 mg IVP Q2H PRN PRN Reason: PAIN Last Admin: 09/05/19 07:25 Dose: 1 mg Documented by: Ceftriaxone Sodium 1,000 mg/ (Sodium Chloride) 50 mls @ 100 mls/hr IV Q24H [facility]; Protocol Last Infusion: 09/04/19 10:06 Dose: Infused Documented by: Sodium Chloride (Sodium Chloride 0.9%) 1,000 mls @ 50 mls/hr IV .Q20H [facility] Last Admin: 09/04/19 17:36 Dose: 50 mls/hr Documented by: Dextrose (D5w) 500 mls @ 100 mls/hr IV ONCE PRN; Protocol PRN Reason: Adult Acute Hypoglycemia Prot Insulin Aspart (Novolog) 0 unit SUBCUT TIDWM [facility]; Protocol Last Admin: 09/05/19 08:59 Dose: 10 unit Documented by: Insulin Glargine (Lantus) 30 unit SUBCUT BEDTIME [facility] Last Admin: 09/04/19 22:25 Dose: 30 unit Documented by: Metoprolol Tartrate (Lopressor) 25 mg PO BID [facility] Last Admin: 09/05/19 09:09 Dose: Not Given Documented by: Ondansetron HCl (Zofran) 4 mg IVP Q6H PRN PRN Reason: NAUSEA AND VOMITING Ondansetron HCl (Zofran) 4 mg IVP Q4H PRN PRN Reason: vomiting, or N/V if npo Oxycodone HCl (Oxycodone Ir) 15 mg PO Q6H [facility] Last Admin: 09/05/19 09:52 Dose: 15 mg Documented by: Oxycodone HCl (Oxycodone Ir) 10 mg PO Q4H PRN PRN Reason: SEVERE PAIN Pantoprazole Sodium (Protonix) 40 mg IVP Q12H [facility] Tizanidine HCl (Zanaflex) 8 mg PO BEDTIME [facility] Last Admin: 09/04/19 21:44 Dose: 8 mg Documented by: Tramadol HCl (Ultram) 50 mg PO Q4H PRN PRN Reason: MILD TO MODERATE PAIN Last Admin: 09/04/19 13:21 Dose: 50 mg Documented by: Vitals/I&O/Wt Last Vital Signs Temp 98.1 F 09/06/19 15:33 Pulse 110 H 09/06/19 15:33 Resp 18 09/06/19 15:33 BP 121/79 09/06/19 15:33 Pulse Ox 94 09/06/19 15:33 09/06/19 09/06/19 09/06/19 06:59 14:59 22:59 Intake Total 882.5 / 3312.5 840 / 840 307.5 / 1147.5 Output Total 1200 / 1750 900 / 900 Balance -317.5 / 1562.5 -60 / -60 307.5 / 247.5 Physical Exam Narrative: EXAM NARRATIVE: GENERAL: Patient is alert, awake and oriented x3. HEART: Irregularly irregular S1 and S2. No murmur, rub or gallop. LUNGS: Clear to auscultate bilaterally. Urinary Catheter Management^: Russell: Cath Placed During This Visit: yes Urethral Indwelling: Yes Reason for Continuing Indwelling Catheter: Accurate Measurement of Urinary Output in Critically Ill Patients Urinary Catheter Date of Insertion: 09/02/19 Urinary Catheter Time of Insertion: 06:06 Data : 09/06/19 04:05 09/06/19 04:05 Micro: Microbiology 09/02/19 05:35 Urine Culture - Final Urine,Clean Catch Escherichia coli esbl A&P Assessment and plan (1) Sinus tachycardia: We will continue to optimize medicine I will increase metoprolol to 50 twice a day. Most likely due to secondary to post operative state and anemia Status: Acute Code(s): R00.0 - Tachycardia, unspecified (2) Atherosclerotic heart disease of [place] coronary artery without angina pectoris: Stable. Continue to monitor Status: Acute Qualifiers: [place] vs. transplanted heart: [place] heart Qualified Code(s): I25.10 - Atherosclerotic heart disease of [place] coronary artery without angina pectoris Code(s): I25.10 - Atherosclerotic heart disease of [place] coronary artery without angina pectoris (3) Fracture of tibia and fibula, open: Patient status post open reduction internal fixation. Status: Acute Qualifiers: Encounter type: initial encounter Laterality: right Open fracture type : open type I or II Qualified Code(s): S82.201B - Unspecified fracture of shaft of right tibia, initial encounter for open fracture type I or II; S82.401B - Unspecified fracture of shaft of right fibula, initial encounter for open fracture type I or II Code(s): S82.209B - Unspecified fracture of shaft of unspecified tibia, initial encounter for open fracture type I or II; S82.409B - Unspecified fracture of shaft of u nspecified fibula, initial encounter for open fracture type I or II (4) Anemia: As per medicine and surgery. Status: Acute Qualifiers: Anemia type: other cause Other causes of anemia: acute posthemorrhagic Qualified Code(s): D62 - Acute posthemorrhagic anemia Code(s): D64.9 - Anemia, unspecified (5) Acute kidney injury: Stable Status: Acute Code(s): N17.9 - Acute kidney failure, unspecified (6) Hypertension: Currently normotensive. Continue on the current medications. Status: Acute Qualifiers: Hypertension type: essential hypertension Qualified Code(s): I10 - Essential (primary) hypertension Code(s): I10 - Essential (primary) hypertension (7) Hyperlipidemia: continue on the current management. Status: Acute Qualifiers: Hyperlipidemia type: mixed hyperlipidemia Qualified Code(s): E78.2 - Mixed hyperlipidemia Code(s): E78.5 - Hyperlipidemia, unspecified Additional A&P Information Her other problems are #1 history of LV dysfunction #2 essential benign hypertension, currently normotensive #3 dyslipidemia Patient need to be on telemetry. The dose of the metoprolol may be adjusted based on the blood pressure. Attestations Medical Necessity Statement*: Required continuation hospitalization for above defined care. Coding Level of Care Code Acute Project Management Instructor for [facility] Fwd Diagnoses Sinus tachycardia R00.0 Atherosclerotic heart disease of [place] coronary artery without angina pectoris I25.10 [place] vs. transplanted heart: [place] heart Fracture of tibia and fibula, open S82.201B; S82.401B Encounter type: initial encounter Laterality: right Open fracture type: open type I or II Anemia D62 Anemia type: other cause Other causes of anemia: acute posthemorrhagic Acute kidney injury N17.9 Hypertension I10 Hypertension type: essential hypertension Hyperlipidemia E78.2 Hyperlipidemia type: mixed hyperlipidemia
--- NOTE | 2019-09-06 19:41 | PC.NURSE ---
MIDLINE Talked to Dr. Limon prior to procedure. He request a MIDLINE catheter. MIDLINE placed.
[2019-09-06] MEDS: insulin glargine 100 units/1 mL 30 UNIT SUBCUT (20:16)
[2019-09-06] MEDS: HYDROmorphone 1 mg/mL INJ 1 mL IVP (20:18)
[2019-09-06 22:22] LABS: Glucose Point of Care 179 mg/dL (70-110)
[2019-09-07] VITALS (18 sets, daily range): BP systolic 90–145; BP diastolic 64–93; PULSE 91–118; RESP 12–20; TEMP 36.7–37.1; O2SAT 76–100
[2019-09-07] MEDS: oxyCODONE 5 mg IR Tab/Cap 15 MG PO ×2 (04:13→14:56)
[2019-09-07] MEDS: HYDROmorphone 1 mg/mL INJ 1 mL IVP ×2 (05:25→21:51)
[2019-09-07 05:40] LABS: Basophils # 0.1 10^3/uL (0.0-0.1); Basophils % 1.2 %; Eosinophils # 0.3 10^3/uL (0.0-0.8); Eosinophils % 6.5 %; Hematocrit 24.7 % (37.0-47.0); Hemoglobin 7.5 g/dL (11.5-15.3); Lymphocytes # 1.3 10^3/uL (0.8-4.8); Mean Corpuscular HGB Conc 30.4 g/dL (30.0-36.0); Mean Corpuscular Hemoglobin 28.7 pg (28.0-34.0); Mean Corpuscular Volume 94.6 fL (81-99); Mean Platelet Volume 11.2 fL (7.4-10.4); Monocytes # 0.4 10^3/uL (0.2-0.9); Monocytes % 7.5 %; Neutrophils # 2.9 10^3/uL (1.8-7.7); Neutrophils % 58.6 %; Nucleated Red Blood Cells % 0 %; Platelet Count 101 10^3/cmm (130-400); Red Blood Count 2.61 10^6/uL (4.1-5.3); Red Cell Distribution Width 15.7 % (12.1-15.1); White Blood Count 4.9 10^3/uL (4.0-10.0)
[2019-09-07 06:03] LABS: Blood Urea Nitrogen 19 mg/dL (6-20); Calcium 8.4 mg/dL (8.5-10.5); Carbon Dioxide 22 mmol/L (22-29); Chloride 104 mmol/L (98-107); Glomerular Filtration Rate 42.1 mL/min (90-130); Glucose 242 mg/dL (65-115); Osmolality Calculated 286 mOsm/kg (285-295); Sodium 136 mmol/L (136-145)
[2019-09-07 06:16] LABS: Glucose Point of Care 231 mg/dL (70-110)
[2019-09-07] MEDS: pregabalin 100 mg Capsule 200 MG PO (08:20)
[2019-09-07] MEDS: dilTIAZem 30 mg Tablet PO ×3 (08:20→17:14)
[2019-09-07] MEDS: sennosides 8.6 mg Tablet PO ×2 (08:20→17:14)
[2019-09-07] MEDS: docusate sodium 100 mg Capsule PO ×2 (08:20→17:14)
[2019-09-07] MEDS: metoprolol tartrate 25 mg Tablet 50 MG PO ×2 (08:20→17:14)
[2019-09-07] MEDS: pantoprazole 40 mg SDV IVP ×2 (09:28→21:27)
[2019-09-07 09:56] LABS: Alanine Aminotransferase 9 U/L (0-33); Albumin Level 2.5 g/dL (3.5-5.2); Alkaline Phosphatase 42 IU/L (35-105); Aspartate Amino Transferase 34 U/L (0-32); Globulin 2.7 g/dL (1.3-4.6); Lactate Dehydrogenase 315 U/L (135-214); Total Bilirubin 0.5 mg/dL (0.15-1.2); Total Protein 5.2 g/dL (6.6-8.7)
[2019-09-07 10:56] LABS: LAB Peripheral Smear Sent for Review
--- NOTE | 2019-09-07 11:11 | P.PN_ITS ---
Subjective Subjective: Interval history: The patient continues to complain of significant pain, but she is working with physical therapy. Medications: Reviewed: Yes Vitals/I&O/Wt Last Vital Signs Temp 98.2 F 09/07/19 09:34 Pulse 98 09/07/19 09:34 Resp 18 09/07/19 09:34 BP 99/68 09/07/19 11:00 Pulse Ox 99 09/07/19 09:34 09/06/19 09/07/19 09/07/19 22:59 06:59 14:59 Intake Total 407.5 / 1247.5 220 / 1467.5 600 / 600 Output Total 0 / 900 650 / 1550 Balance 407.5 / 347.5 -430 / -82.5 600 / 600 Physical Exam Const: COMMON NORMALS: no apparent distress, oriented x3 and alert EXAM LIMITATIONS: no altered mental status GENERAL APPEARANCE: cooperative, comfortable and appears older than stated age NUTRITIONAL APPEARANCE: obese ORIENTATION/CONSCIOUSNESS: Yes awake, Yes oriented to person, Yes oriented to place and Yes oriented to time Extremity: NARRATIVE EXTREMITY EXAM: The patient's cam walker boot is removed again today. There is minimal swelling. The patient is neurologically intact. The calf is soft, but the patient complains of tenderness with any attempts at palpation or even light touch. There is no drainage or evidence of infection. There is no evidence of DVT. Calf is soft and the patient will move her foot without complaints of significant pain. Neuro: COMMON NORMALS: oriented x3 SENSORIUM/ORIENTATION: Yes alert, Yes oriented to person, Yes oriented to place and Yes oriented to time Skin: COMMON NORMALS: no rashes or lesions noted GENERAL SKIN EXAM: no rashes or lesions noted Urinary Catheter Management^: Russell: Cath Placed During This Visit: yes Urethral Indwelling: Yes Reason for Continuing Indwelling Catheter: Accurate Measurement of Urinary Output in Critically Ill Patients Urinary Catheter Date of Insertion: 09/02/19 Urinary Catheter Time of Insertion: 06:06 Data : 09/07/19 05:30 09/07/19 05:30 A&P Assessment and plan (1) Tibia and fibula open fracture, right: The patient is encouraged to work with physical therapy. She has been reluctant, but she is to remain touchdown weightbearing. She is in a CAM walker boot. The wounds are benign. There is no drainage or evidence of infection. The patient is neurologically intact. Her calf is soft and nontender with no evidence of DVT. Patient's H&H has again decreased, but upon evaluation, it does not appear that she is bleeding from her wounds at this time. Status: Acute Qualifiers: Encounter type: initial encounter Open fracture type: open type I or II Qualified Code(s): S82.201B - Unspecified fracture of shaft of right tibia, initial encounter for open fracture type I or II; S82.401B - Unspecified fracture of shaft of right fibula, initial encounter for open fracture type I or II Code(s): S82.201B - Unspecified fracture of shaft of right tibia, initial encounter for open fracture type I or II; S82.401B - Unspecified fracture of shaft of right fibula, initial encounter for open fracture type I or II Attestations Medical Necessity Statement*: Per hospitalist service Coding Level of Care Code Acute Neurophysiological Technician for [facility] Diagnoses Tibia and fibula open fracture, right S82.201B; S82.401B Encounter type: initial encounter Open fracture type: open type I or II
--- NOTE | 2019-09-07 11:20 | PM.PN ---
Subjective Subjective: Interval history: She is not feeling the best. She is bothered by her chronic back pain, but also feeling generally weak. Vitals/I&O/Wt Last Vital Signs Temp 98.2 F 09/07/19 09:34 Pulse 98 09/07/19 09:34 Resp 18 09/07/19 09:34 BP 99/68 09/07/19 11:00 Pulse Ox 99 09/07/19 09:34 09/06/19 09/07/19 09/07/19 22:59 06:59 14:59 Intake Total 407.5 / 1247.5 220 / 1467.5 600 / 600 Output Total 0 / 900 650 / 1550 Balance 407.5 / 347.5 -430 / -82.5 600 / 600 Physical Exam Const: COMMON NORMALS: no apparent distress and oriented x3 HENMT: COMMON NORMALS: oropharynx normal Neck/C-Spine: COMMON NORMALS: no JVD Resp: COMMON NORMALS: normal respiratory effort and clear to auscultation bilaterally AUSCULTATION: clear to auscultation bilaterally Cardio: COMMON NORMALS: no JVD, regular rhythm, S1 normal heart sound, S2 normal heart sound and no murmurs RHYTHM: regular rhythm HEART SOUNDS: S1 normal and S2 normal GI: COMMON NORMALS: normal to inspection, nondistended, normoactive bowel sounds, soft to palpation and non-tender PALPATION: Yes soft Extremity: COMMON NORMALS: no joint enlargement and no pedal edema NARRATIVE EXTREMITY EXAM: Right lower extremity in surgical boot. Wound on anterior lower leg clean, with intact sutures, no erythema, no drainage or bleeding. Neuro: COMMON NORMALS: oriented x3 and moves all extremities Skin: COMMON NORMALS: no rashes or lesions noted GENERAL SKIN EXAM: no rashes or lesions noted Urinary Catheter Management^: Russell: Cath Placed During This Visit: yes Urethral Indwelling: Yes Reason for Continuing Indwelling Catheter: Accurate Measurement of Urinary Output in Critically Ill Patients Urinary Catheter Date of Insertion: 09/02/19 Urinary Catheter Time of Insertion: 06:06 Data : 09/07/19 05:30 09/07/19 05:30 A&P Assessment and plan (1) Anemia: Hemoglobin again down to 7.5 today. She is having generalized weakness. Will transfuse for symptomatic anemia with 1 unit PRBC. Appears to had a good response to initial transfusion, although perhaps the hemoglobin value after transfusion was somewhat falsely elevated. She has not had a bowel movement so far due to constipation. We will go ahead and give her an enema. Collect sample for Hemoccult. Requested LDH, haptoglobin, peripheral smear. Continue PPI twice daily at this time. Status: Acute Qualifiers: Anemia type: other cause Other causes of anemia: acute posthemorrhagic Qualified Code(s): D62 - Acute posthemorrhagic anemia Code(s): D64.9 - Anemia, unspecified (2) Urinary tract infection: Continue Primaxin at this time for ESBL UTI. Midline catheter was placed. Status: Acute Code(s): N39.0 - Urinary tract infection, site not specified (3) Hyperkalemia: Significantly elevated on arrival. Resolved Status: Acute Code(s): E87.5 - Hyperkalemia (4) Acute kidney injury: Improved. Creatinine level thought to be likely close to baseline Status: Acute Code(s): N17.9 - Acute kidney failure, unspecified (5) Tibia and fibula open fracture, right: Continue symptomatic management of pain. Pending placement to SNF for continued rehabilitation. Currently not on pharmacologic DVT prophylaxis. Continue SCD. Required transfusion, monitor hemoglobin for now. Additional pharmacological prophylaxis would have been desired, however is not possible at this time. Status: Acute Qualifiers: Encounter type: initial encounter Open fracture type: open type I or II Qualified Code(s): S82.201B - Unspecified fracture of shaft of right tibia, initial encounter for open fracture type I or II; S82.401B - Unspecified fracture of shaft of right fibula, initial encounter for open fracture type I or II Code(s): S82.201B - Unspecified fracture of shaft of right tibia, initial encounter for open fracture type I or II; S82.401B - Unspecified fracture of shaft of right fibula, initial encounter for open fracture type I or II Additional A&P Information Type 2 diabetes, sliding scale Hypertension. Continue metoprolol Past history of CVA associated with coronary artery bypass grafting Coronary artery disease, with history of chest discomfort approximately 1 month ago. Nuclear stress test not performed as of yet Hypertension Hyperlipidemia Chronic pain syndrome on chronic narcotics. These were restarted. Continue stool softener. Senna. Will request milk and molasses enema. Multiple other medical problems as outlined in past medical history Attestations Medical Necessity Statement*: Continue admission for assessment management of acute blood loss anemia, management of ESBL UTI, arrangements for placement to SNF. Coding Level of Care Code Acute Clerical Stock Inspector for [facility] Fwd Diagnoses Anemia D62 Anemia type: other cause Other causes of anemia: acute posthemorrhagic Urinary tract infection N39.0 Hyperkalemia E87.5 Acute kidney injury N17.9 Tibia and fibula open fracture, right S82.201B; S82.401B Encounter type: initial encounter Open fracture type: open type I or II
[2019-09-07 11:35] LABS: Glucose Point of Care 237 mg/dL (70-110)
--- NOTE | 2019-09-07 16:42 | PC.NURSE ---
1300 Patient requesting to wait on administration of enema. Patient states she feels pressure and desires to produce a bowel movement naturally.
[2019-09-07 17:04] LABS: Glucose Point of Care 191 mg/dL (70-110)
[2019-09-07] MEDS: oxyCODONE 5 mg IR Tab/Cap 10 MG PO (20:45)
--- NOTE | 2019-09-07 20:55 | P.PN_ITS ---
Subjective Subjective: Interval history: Patient had episode of hypotension. Hemoglobin also dropped to 7.5 . Heart rate remained slightly uncontrolled. She denies any chest pain though. Medications: Reviewed: Yes Medication Review Details: Current Medications Dextrose (D50w) 25 ml IVP ONCE PRN; Protocol PRN Reason: hypoglycemia protocol Dextrose (D50w) 50 ml IVP PRN PRN; Protocol PRN Reason: hypoglycemia protocol Docusate Sodium (Colace) 100 mg PO BID [facility] Last Admin: 09/05/19 08:59 Dose: 100 mg Documented by: Glucagon (Glucagen) 1 mg IM ONCE PRN; Protocol PRN Reason: Adult Acute Hypoglycemia Prot. Hydromorphone HCl (Dilaudid Inj) 1 - 2 mg IVP Q2H PRN PRN Reason: PAIN Last Admin: 09/05/19 07:25 Dose: 1 mg Documented by: Ceftriaxone Sodium 1,000 mg/ (Sodium Chloride) 50 mls @ 100 mls/hr IV Q24H [facility]; Protocol Last Infusion: 09/04/19 10:06 Dose: Infused Documented by: Sodium Chloride (Sodium Chloride 0.9%) 1,000 mls @ 50 mls/hr IV .Q20H [facility] Last Admin: 09/04/19 17:36 Dose: 50 mls/hr Documented by: Dextrose (D5w) 500 mls @ 100 mls/hr IV ONCE PRN; Protocol PRN Reason: Adult Acute Hypoglycemia Prot Insulin Aspart (Novolog) 0 unit SUBCUT TIDWM [facility]; Protocol Last Admin: 09/05/19 08:59 Dose: 10 unit Documented by: Insulin Glargine (Lantus) 30 unit SUBCUT BEDTIME [facility] Last Admin: 09/04/19 22:25 Dose: 30 unit Documented by: Metoprolol Tartrate (Lopressor) 25 mg PO BID [facility] Last Admin: 09/05/19 09:09 Dose: Not Given Documented by: Ondansetron HCl (Zofran) 4 mg IVP Q6H PRN PRN Reason: NAUSEA AND VOMITING Ondansetron HCl (Zofran) 4 mg IVP Q4H PRN PRN Reason: vomiting, or N/V if npo Oxycodone HCl (Oxycodone Ir) 15 mg PO Q6H [facility] Last Admin: 09/05/19 09:52 Dose: 15 mg Documented by: Oxycodone HCl (Oxycodone Ir) 10 mg PO Q4H PRN PRN Reason: SEVERE PAIN Pantoprazole Sodium (Protonix) 40 mg IVP Q12H [facility] Tizanidine HCl (Zanaflex) 8 mg PO BEDTIME [facility] Last Admin: 09/04/19 21:44 Dose: 8 mg Documented by: Tramadol HCl (Ultram) 50 mg PO Q4H PRN PRN Reason: MILD TO MODERATE PAIN Last Admin: 09/04/19 13:21 Dose: 50 mg Documented by: Vitals/I&O/Wt Last Vital Signs Temp 98.5 F 09/07/19 20:00 Pulse 91 09/07/19 20:00 Resp 20 H 09/07/19 20:45 BP 133/92 09/07/19 20:00 Pulse Ox 100 09/07/19 20:00 09/07/19 09/07/19 09/07/19 06:59 14:59 22:59 Intake Total 220 / 1817.5 700 / 700 380 / 1080 Output Total 650 / 1550 350 / 350 350 / 700 Balance -430 / 267.5 350 / 350 30 / 380 Physical Exam Narrative: EXAM NARRATIVE: GENERAL: Patient is alert, awake and oriented x3. HEART: Irregularly irregular S1 and S2. No murmur, rub or gallop. LUNGS: Clear to auscultate bilaterally. Urinary Catheter Management^: Russell: Cath Placed During This Visit: yes Urethral Indwelling: Yes Reason for Continuing Indwelling Catheter: Accurate Measurement of Urinary Output in Critically Ill Patients Urinary Catheter Date of Insertion: 09/02/19 Urinary Catheter Time of Insertion: 06:06 Data : 09/07/19 05:30 09/07/19 05:30 A&P Assessment and plan (1) Sinus tachycardia: We will continue to optimize medicine I will reduce metoprolol to 37.5 mg twice a [place] advised to hold if systolic blood pressure is less than 100. Most likely due to secondary to post operative state and anemia. Patient is getting transfused hopefully after that heart rate and blood pressure is also improved. If systolic blood pressure is less than 100 we will hold metoprolol Status: Acute Code(s): R00.0 - Tachycardia, unspecified (2) Atherosclerotic heart disease of [place] coronary artery without angina pectoris: Stable. Continue to monitor Status: Acute Qualifiers: [place] vs. transplanted heart: [place] heart Qualified Code(s): I25.10 - Atherosclerotic heart disease of [place] coronary artery without angina pectoris Code(s): I25.10 - Atherosclerotic heart disease of [place] coronary artery without angina pectoris (3) Fracture of tibia and fibula, open: Patient status post open reduction internal fixation. Status: Acute Qualifiers: Encounter type: initial encounter Laterality: right Open fracture type: open type I or II Qualified Code(s): S82.201B - Unspecified fracture of shaft of right tibia, initial encounter for open fracture type I or II; S82.401B - Unspecified fracture of shaft of right fibula, initial encounter for open fracture type I or II Code(s): S82.209B - Unspecified fracture of shaft of unspecified tibia, initial encounter for open fracture type I or II; S82.409B - Unspecified fracture of shaft of unspecified fibula, initial encounter for open fracture type I or II (4) Anemia: Patient Is getting transfused Status: Acute Qualifiers: Anemia type: other cause Other causes of anemia: acute posthemorrhagic Qualified Code(s): D62 - Acute posthemorrhagic anemia Code(s): D64.9 - Anemia, unspecified (5) Acute kidney injury: Stable Status: Acute Code(s): N17.9 - Acute kidney failure, unspecified (6) Hypertension: Currently Hypotensive most likely due to bleeding. Will hold metoprolol and use it as needed basis. Status: Acute Qualifiers: Hypertension type: essential hypertension Qualified Code(s): I10 - Essential (primary) hypertension Code(s): I10 - Essential (primary) hypertension (7) Hyperlipidemia: continue on the current management. Status: Acute Qualifiers: Hyperlipidemia type: mixed hyperlipidemia Qualified Code(s): E78.2 - Mixed hyperlipidemia Code(s): E78.5 - Hyperlipidemia, unspecified Additional A&P Information Her other problems are #1 history of LV dysfunction #2 essential benign hypertension, currently normotensive #3 dyslipidemia Patient need to be on telemetry. The dose of the metoprolol may be adjusted based on the blood pressure. 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 vs. transplanted heart: [place] heart Fracture of tibia and fibula, open S82.201B; S82.401B Encounter type: initial encounter Laterality: right Open fracture type: open type I or II Anemia D62 Anemia type: other cause Other causes of anemia: acute posthemorrhagic Acute kidney injury N17.9 Hypertension I10 Hypertension type: essential hypertension Hyperlipidemia E78.2 Hyperlipidemia type: mixed hyperlipidemia
[2019-09-07 21:35] LABS: Hematocrit 31.8 % (37.0-47.0); Hemoglobin 9.9 g/dL (11.5-15.3)
[2019-09-07 21:49] LABS: Glucose Point of Care 193 mg/dL (70-110)
[2019-09-07] MEDS: insulin glargine 100 units/1 mL 30 UNIT SUBCUT (23:02)
[2019-09-08] VITALS (13 sets, daily range): BP systolic 107–138; BP diastolic 74–85; PULSE 100–116; RESP 16–20; TEMP 36.6–37.1; O2SAT 94–98
[2019-09-08] MEDS: oxyCODONE 5 mg IR Tab/Cap 15 MG PO ×4 (02:50→23:48)
[2019-09-08] MEDS: dilTIAZem 30 mg Tablet PO ×5 (02:52→20:15)
[2019-09-08] MEDS: HYDROmorphone 1 mg/mL INJ 1 mL IVP ×3 (04:27→20:15)
[2019-09-08 05:35] LABS: Basophils # 0.1 10^3/uL (0.0-0.1); Basophils % 1.3 %; Eosinophils # 0.3 10^3/uL (0.0-0.8); Hematocrit 30.2 % (37.0-47.0); Hemoglobin 9.5 g/dL (11.5-15.3); Lymphocytes # 1.2 10^3/uL (0.8-4.8); Lymphocytes % 22.3 %; Mean Corpuscular HGB Conc 31.5 g/dL (30.0-36.0); Mean Corpuscular Hemoglobin 30.2 pg (28.0-34.0); Mean Corpuscular Volume 95.9 fL (81-99); Mean Platelet Volume 11.1 fL (7.4-10.4); Monocytes # 0.4 10^3/uL (0.2-0.9); Monocytes % 6.9 %; Neutrophils # 3.5 10^3/uL (1.8-7.7); Nucleated Red Blood Cells % 0 %; Platelet Count 123 10^3/cmm (130-400); Red Blood Count 3.15 10^6/uL (4.1-5.3); Red Cell Distribution Width 15.7 % (12.1-15.1); White Blood Count 5.5 10^3/uL (4.0-10.0)
[2019-09-08 05:47] LABS: Anion Gap 15.1 (5-19); Blood Urea Nitrogen 22 mg/dL (6-20); Calcium 8.7 mg/dL (8.5-10.5); Carbon Dioxide 22 mmol/L (22-29); Chloride 106 mmol/L (98-107); Glomerular Filtration Rate 38.6 mL/min (90-130); Glucose 218 mg/dL (65-115); Osmolality Calculated 291 mOsm/kg (285-295); Potassium 4.1 mmol/L (3.5-5.1); Sodium 139 mmol/L (136-145)
[2019-09-08 06:54] LABS: Glucose Point of Care 187 mg/dL (70-110)
[2019-09-08] MEDS: sennosides 8.6 mg Tablet PO ×2 (09:37→18:00)
[2019-09-08] MEDS: docusate sodium 100 mg Capsule PO ×2 (09:39→18:00)
[2019-09-08] MEDS: metoprolol tartrate 25 mg Tablet 37.5 MG PO ×2 (09:41→18:00)
[2019-09-08 12:32] LABS: Glucose Point of Care 221 mg/dL (70-110)
[2019-09-08 17:15] LABS: Glucose Point of Care 135 mg/dL (70-110)
--- NOTE | 2019-09-08 18:47 | P.PN_ITS ---
Subjective Subjective: Interval history: Feels cold in her room. Thermostat appears set at 77, but the deafly does not feel like that. She is sitting up in chair. Says that back pain is starting to bother her and would prefer to return to bed after sitting in chair for 2 hours. Vitals/I&O/Wt Last Vital Signs Temp 98.1 F 09/08/19 15:03 Pulse 108 H 09/08/19 15:03 Resp 16 09/08/19 16:37 BP 128/83 09/08/19 15:03 Pulse Ox 98 09/08/19 15:03 09/08/19 09/08/19 09/08/19 06:59 14:59 22:59 Intake Total 660 / 1840 760 / 760 Output Total 600 / 600 Balance 660 / 740 160 / 160 Physical Exam Const: COMMON NORMALS: no apparent distress and oriented x3 HENMT: COMMON NORMALS: oropharynx normal Neck/C-Spine: COMMON NORMALS: no JVD Resp: COMMON NORMALS: normal respiratory effort and clear to auscultation bilaterally AUSCULTATION: clear to auscultation bilaterally Cardio: COMMON NORMALS: no JVD, regular rhythm, S1 normal heart sound, S2 normal heart sound and no murmurs RHYTHM: regular rhythm HEART SOUNDS: S1 normal and S2 normal GI: COMMON NORMALS: normal to inspection, nondistended, normoactive bowel sounds, soft to palpation and non-tender PALPATION: Yes soft Extremity: COMMON NORMALS: no joint enlargement and no pedal edema NARRATIVE EXTREMITY EXAM: Right lower extremity in surgical boot. Wound on anterior lower leg clean, with intact sutures, no erythema, no drainage or bleeding. Neuro: COMMON NORMALS: oriented x3 and moves all extremities Skin: COMMON NORMALS: no rashes or lesions noted GENERAL SKIN EXAM: no rashes or lesions noted Urinary Catheter Management^: Russell: Cath Placed During This Visit: yes Urethral Indwelling: Yes Reason for Continuing Indwelling Catheter: Accurate Measurement of Urinary Output in Critically Ill Patients Urinary Catheter Date of Insertion: 09/02/19 Urinary Catheter Time of Insertion: 06:06 Data : 09/08/19 05:21 09/08/19 05:21 A&P Assessment and plan (1) Anemia: Responded well to blood transfusion, with hemoglobin stable this morning. Recheck tomorrow morning. LDH is somewhat elevated, but haptoglobin is not low. Peripheral smear was requested. Had 2 BM, but I am told they were discarded before the sample could be collected. Continue PPI twice daily at this time. If hemoglobin remained stable change to p.o. tomorrow. Status: Acute Qualifiers: Anemia type: other cause Other causes of anemia: acute posthemorrhagic Qualified Code(s): D62 - Acute posthemorrhagic anemia Code(s): D64.9 - Anemia, unspecified (2) Urinary tract infection: Continue Primaxin at this time for ESBL UTI. Midline catheter was placed. Status: Acute Code(s): N39.0 - Urinary tract infection, site not specified (3) Hyperkalemia: Significantly elevated on arrival. Resolved Status: Acute Code(s): E87.5 - Hyperkalemia (4) Acute kidney injury: Improved. Creatinine level thought to be likely close to baseline Status: Acute Code(s): N17.9 - Acute kidney failure, unspecified (5) Tibia and fibula open fracture, right: Continue symptomatic management of pain. Pending placement to SNF for continued rehabilitation. Currently not on pharmacologic DVT prophylaxis. Continue SCD. Required transfusion, monitor hemoglobin for now. Additional pharmacological prophylaxis would have been desired, however is not possible at this time. Status: Acute Qualifiers: Encounter type: initial encounter Open fracture type: open type I or II Qualified Code(s): S82.201B - Unspecified fracture of shaft of right tibia, initial encounter for open fracture type I or II; S82.401B - Unspecified fracture of shaft of right fibula, initial encounter for open fracture type I or II Code(s): S82.201B - Unspecified fracture of shaft of right tibia, initial encounter for open fracture type I or II; S82.401B - Unspecified fracture of shaft of right fi bula, initial encounter for open fracture type I or II Additional A&P Information Type 2 diabetes, sliding scale Hypertension. Continue metoprolol Past history of CVA associated with coronary artery bypass grafting Coronary artery disease, with history of chest discomfort approximately 1 month ago. Nuclear stress test not performed as of yet Hypertension Hyperlipidemia Chronic pain syndrome on chronic narcotics. These were restarted. Continue stool softener. Senna. Multiple other medical problems as outlined in past medical history Attestations Medical Necessity Statement*: Continue admission for assessment management of acute blood loss anemia, ESBL UTI, with pending arrangements for placement to SNF for rehabilitation. 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
[2019-09-08 20:59] LABS: Glucose Point of Care 171 mg/dL (70-110)
--- NOTE | 2019-09-08 23:12 | PM.PN ---
Subjective Subjective: Interval history: Today she is feeling better. Hemoglobin is stable. She is in sinus rhythm. Medications: Reviewed: Yes Medication Review Details: Current Medications Dextrose (D50w) 25 ml IVP ONCE PRN; Protocol PRN Reason: hypoglycemia protocol Dextrose (D50w) 50 ml IVP PRN PRN; Protocol PRN Reason: hypoglycemia protocol Docusate Sodium (Colace) 100 mg PO BID [facility] Last Admin: 09/05/19 08:59 Dose: 100 mg Documented by: Glucagon (Glucagen) 1 mg IM ONCE PRN; Protocol PRN Reason: Adult Acute Hypoglycemia Prot. Hydromorphone HCl (Dilaudid Inj) 1 - 2 mg IVP Q2H PRN PRN Reason: PAIN Last Admin: 09/05/19 07:25 Dose: 1 mg Documented by: Ceftriaxone Sodium 1,000 mg/ (Sodium Chloride) 50 mls @ 100 mls/hr IV Q24H [facility]; Protocol Last Infusion: 09/04/19 10:06 Dose: Infused Documented by: Sodium Chloride (Sodium Chloride 0.9%) 1,000 mls @ 50 mls/hr IV .Q20H [facility] Last Admin: 09/04/19 17:36 Dose: 50 mls/hr Documented by: Dextrose (D5w) 500 mls @ 100 mls/hr IV ONCE PRN; Protocol PRN Reason: Adult Acute Hypoglycemia Prot Insulin Aspart (Novolog) 0 unit SUBCUT TIDWM [facility]; Protocol Last Admin: 09/05/19 08:59 Dose: 10 unit Documented by: Insulin Glargine (Lantus) 30 unit SUBCUT BEDTIME [facility] Last Admin: 09/04/19 22:25 Dose: 30 unit Documented by: Metoprolol Tartrate (Lopressor) 25 mg PO BID [facility] Last Admin: 09/05/19 09:09 Dose: Not Given Documented by: Ondansetron HCl (Zofran) 4 mg IVP Q6H PRN PRN Reason: NAUSEA AND VOMITING Ondansetron HCl (Zofran) 4 mg IVP Q4H PRN PRN Reason: vomiting, or N/V if npo Oxycodone HCl (Oxycodone Ir) 15 mg PO Q6H [facility] Last Admin: 09/05/19 09:52 Dose: 15 mg Documented by: Oxycodone HCl (Oxycodone Ir) 10 mg PO Q4H PRN PRN Reason: SEVERE PAIN Pantoprazole Sodium (Protonix) 40 mg IVP Q12H [facility] Tizanidine HCl (Zanaflex) 8 mg PO BEDTIME [facility] Last Admin: 09/04/19 21:44 Dose: 8 mg Documented by: Tramadol HCl (Ultram) 50 mg PO Q4H PRN PRN Reason: MILD TO MODERATE PAIN Last Admin: 09/04/19 13:21 Dose: 50 mg Documented by: Vitals/I&O/Wt Last Vital Signs Temp 97.9 F 09/08/19 20:00 Pulse 113 H 09/08/19 20:00 Resp 18 09/08/19 20:15 BP 138/82 09/08/19 20:00 Pulse Ox 96 09/08/19 20:00 09/08/19 09/08/19 09/09/19 14:59 22:59 06:59 Intake Total 760 / 760 200 / 960 Output Total 600 / 600 450 / 1050 Balance 160 / 160 -250 / -90 Physical Exam Narrative: EXAM NARRATIVE: GENERAL: Patient is alert, awake and oriented x3. HEART:Regular S1 and S2. No murmur, rub or gallop. LUNGS: Clear to auscultate bilaterally. Urinary Catheter Management^: Russell: Cath Placed During This Visit: yes Urethral Indwelling: Yes Reason for Continuing Indwelling Catheter: Accurate Measurement of Urinary Output in Critically Ill Patients Urinary Catheter Date of Insertion: 09/02/19 Urinary Catheter Time of Insertion: 06:06 Data : 09/08/19 05:21 09/08/19 05:21 A&P Assessment and plan (1) Sinus tachycardia: Continue current regimen. Status: Acute Code(s): R00.0 - Tachycardia, unspecified (2) Atherosclerotic heart disease of [place] coronary artery without angina pectoris: Stable doing fine from a cardiac vascular perspective. Continue medicine Status: Acute Qualifiers: [place] vs. transplanted heart: [place] heart Qualified Code(s): I25.10 - Atherosclerotic heart disease of [place] coronary artery without angina pectoris Code(s): I25.10 - Atherosclerotic heart disease of [place] coronary artery without angina pectoris (3) Fracture of tibia and fibula, open: Patient status post open reduction internal fixation. Status: Acute Qualifiers: Encounter type: initial encounter Laterality: right Open fracture type: open type I or II Qualified Code(s): S82.201B - Unspecified fracture of shaft of right tibia, initial encounter for open fracture type I or II; S82.401B - Unspecified fracture of shaft of right fibula, initial encounter for open fracture type I or II Code(s): S82.209B - Unspecified fracture of shaft of unspecified tibia, initial encounter for open fracture type I or II; S82.409B - Unspecified fracture of shaft of unspecified fibula, initial encounter for open fracture type I or II (4) Anemia: Currently stable at 9.4 Status: Acute Qualifiers: Anemia type: other cause Other causes of anemia: acute posthemorrhagic Qualified Code(s): D62 - Acute posthemorrhagic anemia Code(s): D64.9 - Anemia, unspecified (5) Acute kidney injury: Slightly worsened. Suggested IV fluid Status: Acute Code(s): N17.9 - Acute kidney failure, unspecified (6) Hypertension: Well controlled. Status: Acute Qualifiers: Hypertension type: essential hypertension Qualified Code(s): I10 - Essential (primary) hypertension Code(s): I10 - Essential (primary) hypertension (7) Hyperlipidemia: continue on the current management. Status: Acute Qualifiers: Hyperlipidemia type: mixed hyperlipidemia Qualified Code(s): E78.2 - Mixed hyperlipidemia Code(s): E78.5 - Hyperlipidemia, unspecified Additional A&P Information Her other problems are #1 history of LV dysfunction #2 essential benign hypertension, currently normotensive #3 dyslipidemia Patient need to be on telemetry. The dose of the metoprolol may be adjusted based on the blood pressure. Attestations Medical Necessity Statement*: Requires continuation of hospitalization for above defined Care. 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 transplanted heart: [place] heart Fracture of tibia and fibula, open S82.201B; S82.401B Encounter type: initial encounter Laterality: right Open fracture type: open type I or II Anemia D62 Anemia type: other cause Other causes of anemia: acute posthemorrhagic Acute kidney injury N17.9 Hypertension I10 Hypertension type: essential hypertension Hyperlipidemia E78.2 Hyperlipidemia type: mixed hyperlipidemia
[2019-09-08] MEDS: insulin glargine 100 units/1 mL 30 UNIT SUBCUT (23:49)
[2019-09-09] VITALS (9 sets, daily range): BP systolic 106–145; BP diastolic 69–89; PULSE 82–115; RESP 16–20; TEMP 36.6–36.9; O2SAT 94–100
[2019-09-09] MEDS: HYDROmorphone 1 mg/mL INJ 1 mL IVP (01:16)
[2019-09-09] MEDS: oxyCODONE 5 mg IR Tab/Cap 15 MG PO ×4 (05:54→22:06)
[2019-09-09 06:02] LABS: Basophils # 0.1 10^3/uL (0.0-0.1); Basophils % 1.7 %; Eosinophils # 0.5 10^3/uL (0.0-0.8); Eosinophils % 8.4 %; Hematocrit 32.4 % (37.0-47.0); Lymphocytes # 1.6 10^3/uL (0.8-4.8); Lymphocytes % 29.8 %; Mean Corpuscular HGB Conc 30.9 g/dL (30.0-36.0); Mean Corpuscular Hemoglobin 29.9 pg (28.0-34.0); Mean Corpuscular Volume 96.7 fL (81-99); Mean Platelet Volume 11.2 fL (7.4-10.4); Monocytes # 0.4 10^3/uL (0.2-0.9); Monocytes % 7.3 %; Neutrophils # 2.8 10^3/uL (1.8-7.7); Neutrophils % 52.4 %; Nucleated Red Blood Cells % 0 %; Platelet Count 143 10^3/cmm (130-400); Red Blood Count 3.35 10^6/uL (4.1-5.3); Red Cell Distribution Width 15.6 % (12.1-15.1); White Blood Count 5.3 10^3/uL (4.0-10.0)
[2019-09-09 06:16] LABS: Blood Urea Nitrogen 19 mg/dL (6-20); Calcium 9.1 mg/dL (8.5-10.5); Carbon Dioxide 25 mmol/L (22-29); Chloride 105 mmol/L (98-107); Glomerular Filtration Rate 46.1 mL/min (90-130); Glucose 164 mg/dL (65-115); Osmolality Calculated 288 mOsm/kg (285-295); Sodium 139 mmol/L (136-145)
[2019-09-09 06:17] LABS: Magnesium 1.9 mg/dL (1.7-2.3)
[2019-09-09] MEDS: sennosides 8.6 mg Tablet PO ×2 (08:25→18:37)
[2019-09-09] MEDS: metoprolol tartrate 25 mg Tablet 37.5 MG PO ×2 (08:26→18:37)
[2019-09-09] MEDS: dilTIAZem 30 mg Tablet PO ×4 (08:26→22:03)
[2019-09-09] MEDS: docusate sodium 100 mg Capsule PO ×2 (08:26→18:37)
[2019-09-09] MEDS: magnesium sulfate premix 2 GM/50 ML PIGGYBACK IV (08:27)
[2019-09-09] MEDS: pantoprazole 40 mg SDV IVP (09:09)
[2019-09-09 10:52] LABS: Glucose Point of Care 187 mg/dL (70-110)
[2019-09-09 16:42] LABS: Glucose Point of Care 151 mg/dL (70-110)
--- NOTE | 2019-09-09 18:26 | PM.PN ---
Subjective Subjective: Interval history: Heart rate has improved staying around 70s to 90s. Overall she reports that she is feeling better. Hemoglobin is also stable at 10. Creatinine has also improved. Medications: Reviewed: Yes Medication Review Details: Current Medications Dextrose (D50w) 25 ml IVP ONCE PRN; Protocol PRN Reason: hypoglycemia protocol Dextrose (D50w) 50 ml IVP PRN PRN; Protocol PRN Reason: hypoglycemia protocol Docusate Sodium (Colace) 100 mg PO BID [facility] Last Admin: 09/05/19 08:59 Dose: 100 mg Documented by: Glucagon (Glucagen) 1 mg IM ONCE PRN; Protocol PRN Reason: Adult Acute Hypoglycemia Prot. Hydromorphone HCl (Dilaudid Inj) 1 - 2 mg IVP Q2H PRN PRN Reason: PAIN Last Admin: 09/05/19 07:25 Dose: 1 mg Documented by: Ceftriaxone Sodium 1,000 mg/ (Sodium Chloride) 50 mls @ 100 mls/hr IV Q24H [facility]; Protocol Last Infusion: 09/04/19 10:06 Dose: Infused Documented by: Sodium Chloride (Sodium Chloride 0.9%) 1,000 mls @ 50 mls/hr IV .Q20H [facility] Last Admin: 09/04/19 17:36 Dose: 50 mls/hr Documented by: Dextrose (D5w) 500 mls @ 100 mls/hr IV ONCE PRN; Protocol PRN Reason: Adult Acute Hypoglycemia Prot Insulin Aspart (Novolog) 0 unit SUBCUT TIDWM [facility], [facility]; Protocol Last Admin: 09/05/19 08:59 Dose: 10 unit Documented by: Insulin Glargine (Lantus) 30 unit SUBCUT BEDTIME [facility] Last Admin: 09/04/19 22:25 Dose: 30 unit Documented by: Metoprolol Tartrate (Lopressor) 25 mg PO BID [facility] Last Admin: 09/05/19 09:09 Dose: Not Given Documented by: Ondansetron HCl (Zofran) 4 mg IVP Q6H PRN PRN Reason: NAUSEA AND VOMITING Ondansetron HCl (Zofran) 4 mg IVP Q4H PRN PRN Reason: vomiting, or N/V if npo Oxycodone HCl (Oxycodone Ir) 15 mg PO Q6H [facility] Last Admin: 09/05/19 09:52 Dose: 15 mg Documented by: Oxycodone HCl (Oxycodone Ir) 10 mg PO Q4H PRN PRN Reason: SEVERE PAIN Pantoprazole Sodium (Protonix) 40 mg IVP Q12H [facility] Tizanidine HCl (Zanaflex) 8 mg PO BEDTIME [facility]ON Last Admin: 09/04/19 21:44 Dose: 8 mg Documented by: Tramadol HCl (Ultram) 50 mg PO Q4H PRN PRN Reason: MILD TO MODERATE PAIN Last Admin: 09/04/19 13:21 Dose: 50 mg Documented by: Vitals/I&O/Wt Last Vital Signs Temp 98.0 F 09/09/19 15:56 Pulse 95 09/09/19 15:56 Resp 18 09/09/19 16:06 BP 145/89 09/09/19 15:56 Pulse Ox 100 09/09/19 15:56 09/09/19 09/09/19 09/09/19 06:59 14:59 22:59 Intake Total 422 / 1482 480 / 480 240 / 720 Output Total 350 / 1400 600 / 600 Balance 72 / 82 -120 / -120 240 / 120 Physical Exam Narrative: EXAM NARRATIVE: GENERAL: Patient is alert, awake and oriented x3. HEART:Regular S1 and S2. No murmur, rub or gallop. LUNGS: Clear to auscultate bilaterally. Urinary Catheter Management^: Russell: Cath Placed During This Visit: yes Urethral Indwelling: Yes Reason for Continuing Indwelling Catheter: Accurate Measurement of Urinary Output in Critically Ill Patients Urinary Catheter Date of Insertion: 09/02/19 Urinary Catheter Time of Insertion: 06:06 Data : 09/09/19 05:42 09/09/19 05:42 A&P Assessment and plan (1) Sinus tachycardia: Rate controlled now. In sinus rhythm. Continue current regimen Status: Acute Code(s): R00.0 - Tachycardia, unspecified (2) Atherosclerotic heart disease of [place] coronary artery without angina pectoris: Stable doing fine from a cardiac vascular perspective. Continue medicine Status: Acute Qualifiers: [place] vs. transplanted heart: [place] heart Qualified Code(s): I25.10 - Atherosclerotic heart disease of [place] coronary artery without angina pectoris Code(s): I25.10 - Atherosclerotic heart disease of [place] coronary artery without angina pectoris (3) Fracture of tibia and fibula, open: Patient status post open reduction internal fixation. Status: Acute Qualifiers: Encounter type: initial encounter Laterality: right Open fracture type: open type I or II Qualified Code(s): S82.201B - Unspecified fracture of shaft of right tibia, initial encounter for open fracture type I or II; S82.401B - Unspecified fracture of shaft of right fibula, initial encounter for open fracture type I or II Code(s): S82.209B - Unspecified fracture of shaft of unspecified tibia, initial encounter for open fracture type I or II; S82.409B - Unspecified fracture of shaft of unspecified fibula, initial encounter for open fracture type I or II (4) Anemia: Currently stable at 10 Status: Acute Qualifiers: Anemia type: other cause Other causes of anemia: acute posthemorrhagic Qualified Code(s): D62 - Acute posthemorrhagic anemia Code(s): D64.9 - Anemia, unspecified (5) Acute kidney injury: Improved. Most likely secondary to dehydration? anemia Status: Acute Code(s): N17.9 - Acute kidney failure, unspecified (6) Hypertension: Normotensive. Status: Acute Qualifiers: Hypertension type: essential hypertension Qualified Code(s): I10 - Essential (primary) hypertension Code(s): I10 - Essential (primary) hypertension (7) Hyperlipidemia: continue on the current management. Status: Acute Qualifiers: Hyperlipidemia type: mixed hyperlipidemia Qualified Code(s): E78.2 - Mixed hyperlipidemia Code(s): E78.5 - Hyperlipidemia, unspecified Additional A&P Information Her other problems are #1 history of LV dysfunction #2 essential benign hypertension, currently normotensive #3 dyslipidemia Patient need to be on telemetry. The dose of the metoprolol may be adjusted based on the blood pressure. 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 transplanted heart: [place] heart Fracture of tibia and fibula, open S82.201B; S82.401B Encounter type: initial encounter Laterality: right Open fracture type: open type I or II Anemia D62 Anemia type: other cause Other causes of anemia: acute posthemorrhagic Acute kidney injury N17.9 Hypertension I10 Hypertension type: essential hypertension Hyperlipidemia E78.2 Hyperlipidemia type: mixed hyperlipidemia
--- NOTE | 2019-09-09 18:56 | P.PN_ITS ---
Subjective Subjective: Interval history: She is miserable due to chronic back pain. She states that it is severely exacerbated due to the uncomfortable bed. She has brought some pills from home, however, has still been bothered by sleeping in the hospital bed. She requests for Dilaudid. She declines to try K pad, capsaicin cream, or lidocaine patch. Discussed with her that we could substit [place] instead of oxycodone for Dilaudid, however, it would not be safe to continue both as they are both opioids, especially she has already had issues with severe constipation. She declines switching to Dilaudid. Becomes frustrated and states that she is not being listened to. Medications: Reviewed: Yes Vitals/I&O/Wt Last Vital Signs Temp 98.0 F 09/09/19 15:56 Pulse 95 09/09/19 15:56 Resp 18 09/09/19 16:06 BP 145/89 09/09/19 15:56 Pulse Ox 100 09/09/19 15:56 09/09/19 09/09/19 09/09/19 06:59 14:59 22:59 Intake Total 422 / 1482 480 / 480 240 / 720 Output Total 350 / 1400 600 / 600 Balance 72 / 82 -120 / -120 240 / 120 Physical Exam Const: COMMON NORMALS: oriented x3 HENMT: COMMON NORMALS: oropharynx normal Neck/C-Spine: COMMON NORMALS: no JVD Resp: COMMON NORMALS: normal respiratory effort and clear to auscultation mary aterally AUSCULTATION: clear to auscultation bilaterally Cardio: COMMON NORMALS: no JVD, regular rhythm, S1 normal heart sound, S2 normal heart sound and no murmurs RHYTHM: regular rhythm HEART SOUNDS: S1 normal and S2 normal GI: COMMON NORMALS: normal to inspection, nondistended, normoactive bowel sounds, soft to palpation and non-tender PALPATION: Yes soft Extremity: COMMON NORMALS: no joint enlargement and no pedal edema NARRATIVE EXTREMITY EXAM: Right lower extremity in surgical boot. Wound on anterior lower leg clean, with intact sutures, no erythema, no drainage or bleeding. Neuro: COMMON NORMALS: oriented x3 and moves all extremities Skin: COMMON NORMALS: no rashes or lesions noted GENERAL SKIN EXAM: no r ashes or lesions noted Data : 09/09/19 05:42 09/09/19 05:42 A&P Assessment and plan (1) Anemia: Responded well to blood transfusion, with hemoglobin stable. LDH is somewhat elevated, but haptoglobin is not low. Peripheral smear was requested. Had 2 BM, but I am told they were discarded before the sample could be collected. Continue PPI twice daily at this time. If hemoglobin remained stable change to p.o. tomorrow. Status: Acute Qualifiers: Anemia type: other cause Other causes of anemia: acute posthemorrhagic Qualified Code(s): D62 - Acute posthemorrhagic anemia Code(s): D64.9 - Anemia, unspecified (2) Urinary tract infection: Continue Primaxin at this time for ESBL UTI. Midline catheter due to difficulties with vascular access. Status: Acute Code(s): N39.0 - Urinary tract infection, site not specified (3) Hyperkalemia: Significantly elevated on arrival. Resolved Status: Acute Code(s): E87.5 - Hyperkalemia (4) Acute kidney injury: Improved. Creatinine level thought to be likely close to baseline Status: Acute Code(s): N17.9 - Acute kidney failure, unspecified (5) Tibia and fibula open fracture, right: Continue symptomatic management of pain. Pending placement to SNF for continued rehabilitation. Currently not on pharmacologic DVT prophylaxis. Continue SCD. Required transfusion, monitor hemoglobin for now. Additional pharmacological prophylaxis would have been desired, however is not possible at this time. Status: Acute Qualifiers: Encounter type: initial encounter Open fracture type: open type I or II Qualified Code(s): S82.201B - Unspecified fracture of shaft of right tibia, initial encounter for open fracture type I or II; S82.401B - Unspecified fracture of shaft of right fibula, initial encounter for open fracture type I or II Code(s): S82.201B - Unspecified fracture of shaft of right tibia, initial encounter for open fracture type I or II; S82.401B - Unspecified fracture of shaft of right fibula, initial encounter for open fracture type I or II Additional A&P Information Type 2 diabetes, sliding scale Hypertension. Continue metoprolol Past history of CVA associated with coronary artery bypass grafting Coronary artery disease, with history of chest discomfort approximately 1 month ago. Nuclear stress test not performed as of yet Hypertension Hyperlipidemia Chronic pain syndrome on chronic narcotics. Oxycodone restarted. She is both ered by the hospital bed. States she is miserable from pain. Sitting hunched over in bed. Request for Dilaudid to be added. I reviewed her home medications again. Oxycodone, pregabalin and tizanidine are restarted. Meloxicam is not started due to suspected chronic kidney disease. She states that she has other pain medications at home which she is not receiving, normally given to her by pain clinic. I asked her what these are to which she becomes upset I gave you all the medications . Request for Dilaudid to be added since it works together with oxycodone. Asks if she takes this at home. She states no. Discussed with her concern regarding adding additional opioid to oxycodone since she already has had severe constipation requiring intensification of bowel regimen and enema just to have a bowel movement. Offered additional measures we could add to enhance pain control including K pad, capsaicin cream, lidocaine patch, however, she declines all. Discussed with her we could cautiously switch from oxycodone to Dilaudid instead, however, she declines this as well, becoming upset stating you are not listening . We will continue pain regimen. Continue nonpharmacologic attempts to make her bed more comfortable. Will revisit the topic again when she is ready to discuss. Attestations Medical Necessity Statement*: Continue admission for assessment management of acute blood loss anemia, postoperative management after open tib-fib fracture, arrangements for placement to SNF for rehabilitation. Coding Level of Care Code Acute Manager Workers Compensation for [employer] Diagnoses Anemia D62 Anemia type: other cause Other causes of anemia: acute posthemorrhagic Urinary tract infection N39.0 Hyperkalemia E87.5 Acute kidney injury N17.9 Tibia and fibula open fracture, right S82.201B; S82.401B Encounter type: initial encounter Open fracture type: open type I or II
[2019-09-09 21:48] LABS: Glucose Point of Care 146 mg/dL (70-110)
[2019-09-09] MEDS: insulin glargine 100 units/1 mL 30 UNIT SUBCUT (22:02)
[2019-09-10] VITALS (12 sets, daily range): BP systolic 128–160; BP diastolic 73–100; PULSE 107–126; RESP 12–20; TEMP 35.9–37.1; O2SAT 94–97; BMI 42.4
[2019-09-10] MEDS: oxyCODONE 5 mg IR Tab/Cap 15 MG PO ×5 (04:16→22:19)
[2019-09-10 07:23] LABS: Basophils # 0.1 10^3/uL (0.0-0.1); Basophils % 1.2 %; Eosinophils # 0.2 10^3/uL (0.0-0.8); Eosinophils % 4.5 %; Hematocrit 33.2 % (37.0-47.0); Hemoglobin 10.3 g/dL (11.5-15.3); Lymphocytes # 0.8 10^3/uL (0.8-4.8); Lymphocytes % 16.4 %; Mean Corpuscular Hemoglobin 29.5 pg (28.0-34.0); Mean Corpuscular Volume 95.1 fL (81-99); Mean Platelet Volume 11.1 fL (7.4-10.4); Monocytes # 0.3 10^3/uL (0.2-0.9); Monocytes % 6.5 %; Neutrophils # 3.6 10^3/uL (1.8-7.7); Neutrophils % 71.2 %; Nucleated Red Blood Cells % 0 %; Platelet Count 162 10^3/cmm (130-400); Red Blood Count 3.49 10^6/uL (4.1-5.3); Red Cell Distribution Width 15.5 % (12.1-15.1); White Blood Count 5.1 10^3/uL (4.0-10.0)
[2019-09-10 07:42] LABS: Anion Gap 17.2 (5-19); Blood Urea Nitrogen 15 mg/dL (6-20); Calcium 9.3 mg/dL (8.5-10.5); Carbon Dioxide 23 mmol/L (22-29); Chloride 102 mmol/L (98-107); Glucose 198 mg/dL (65-115); Osmolality Calculated 288 mOsm/kg (285-295); Potassium 4.2 mmol/L (3.5-5.1); Sodium 138 mmol/L (136-145)
[2019-09-10] MEDS: docusate sodium 100 mg Capsule PO ×2 (08:30→18:14)
[2019-09-10] MEDS: sennosides 8.6 mg Tablet PO ×2 (08:31→18:14)
[2019-09-10] MEDS: dilTIAZem 30 mg Tablet PO ×4 (08:31→20:46)
[2019-09-10] MEDS: metoprolol tartrate 25 mg Tablet 37.5 MG PO (08:31)
[2019-09-10] MEDS: pantoprazole 40 mg SDV IVP ×2 (09:15→20:58)
--- NOTE | 2019-09-10 09:27 | P.PN_ITS ---
Subjective Subjective: Interval history: Patient is diagnosed with a ESBL infection. She is on isolation. She also is complaining of pain in the back and also in the surgical area. Denies any chest pain or shortness of breath. Telemetry shows episodes of PAT's and sinus tachycardia's. No ventricular arrhythmias. She had the most recent EKG on 09/06/2019. The EKG showed sinus rhythm with features of old inferior wall and anterior wall myocardial infarction. Nonspecific ST-T changes. No fever or chills. The hemoglobin seems to be stable Medications: Reviewed: Yes Medication Review Details: Current Medications Dextrose (D50w) 25 ml IVP ONCE PRN; Protocol PRN Reason: hypoglycemia protocol Dextrose (D50w) 50 ml IVP PRN PRN; Protocol PRN Reason: hypoglycemia protocol Diltiazem HCl (Cardizem) 30 mg PO QID [facility] Last Admin: 09/10/19 08:31 Dose: 30 mg Documented by: Docusate Sodium (Colace) 100 mg PO BID [facility] Last Admin: 09/10/19 08:30 Dose: 100 mg Documented by: Glucagon (Glucagen) 1 mg IM ONCE PRN; Protocol PRN Reason: Adult Acute Hypoglycemia Prot. Dextrose (D5w) 500 mls @ 100 mls/hr IV ONCE PRN; Protocol PRN Reason: Adult Acute Hypoglycemia Prot Imipenem/Cilastatin Sodium 500 (mg/ Sodium Chloride) 100 mls @ 200 mls/hr IV Q8H [facility]; Protocol Last Admin: 09/10/19 04:18 Dose: 200 mls/hr Documented by: Insulin Aspart (Novolog) 0 unit SUBCUT TIDWM [facility]; Protocol Last Admin: 09/10/19 08:35 Dose: 4 unit Documented by: Insulin Glargine (Lantus) 30 unit SUBCUT BEDTIME [facility] Last Admin: 09/09/19 22:02 Dose: 30 unit Documented by: Metoprolol Tartrate (Metoprolol Tartrate) 5 mg IV ONCE [facility] Metoprolol Tartrate (Lopressor) 37.5 mg PO BID [facility] Last Admin: 09/10/19 08:31 Dose: 37.5 mg Documented by: Ondansetron HCl (Zofran) 4 mg IVP Q6H PRN PRN Reason: NAUSEA AND VOMITING Ondansetron HCl (Zofran) 4 mg IVP Q4H PRN PRN Reason: vomiting, or N/V if npo Oxycodone HCl (Oxycodone Ir) 15 mg PO Q6H PRN PRN Reason: BACK AND ARTHRITIS PAIN Last Admin: 09/10/19 04:16 Dose: 15 mg Documented by: Pantoprazole Sodium (Protonix) 40 mg IVP Q12H [facility] Last Admin: 09/10/19 09:15 Dose: 40 mg Documented by: Senna (Senna Lax) 8.6 mg PO BID [facility] Last Admin: 09/10/19 08:31 Dose: 8.6 mg Documented by: Vitals/I&O/Wt Last Vital Signs Temp 98.0 F 09/10/19 07:24 Pulse 126 H 09/10/19 07:24 Resp 16 09/10/19 07:24 BP 149/100 09/10/19 07:24 Pulse Ox 96 09/10/19 07:24 09/09/19 09/10/19 09/10/19 22:59 06:59 14:59 Intake Total 340 / 820 200 / 1020 240 / 240 Output Total 350 / 950 Balance 340 / 220 -150 / 70 240 / 240 Physical Exam Narrative: EXAM NARRATIVE: GENERAL: The patient is alert and oriented times three. Not in any acute distress HEENT: No significant pallor, icterus or lymphadenopathy.Oral cavity: There are no mucous membrane lesions. NECK: Trachea appears to be central. No masses noted. No JVD or thyromegaly appreciated. RESPIRATORY: Chest is symmetrical. No intercostals muscle retraction or any accessory muscle activation. There is no chest wall tenderness. Breath sounds are heard bilaterally. No rales or rhonchi heard. No evidence of any consolidation. BREASTS: Deferred. HEART: The heart sounds are normal. No S3 or S4. Murmurs. No pericardial rub ABDOMEN: No vessel pulsations or distention. No tenderness. No organomegaly appreciated. Bowel sounds are normally heard. : Deferred. RECTAL: Deferred. LYMPHATIC: No lymphadenopathy noted in the neck or groin. EXTREMITIES: No edema or cyanosis. No clubbing. MUSCULOSKELETAL: Status post open reduction internal fixation of the right lower extremity SKIN: There are no significant scars or skin rash noted. NEUROPSYCHIATRIC: The patient is alert and oriented x3. Appears to be in a good mood. No tremors or rigidity noted. Urinary Catheter Management^: Russell: Cath Placed During This Visit: yes Urethral Indwelling: Yes Reason for Continuing Indwelling Catheter: Accurate Measurement of Urinary Output in Critically Ill Patients Urinary Catheter Date of Insertion: 09/02/19 Urinary Catheter Time of Insertion: 06:06 Data : 09/10/19 07:14 09/10/19 07:14 Other Labs: Abnormal lab results 09/10/19 09/10/19 Range/Units 07:14 07:14 RBC 3.49 L (4.1-5.3) 10^6/uL Hgb 10.3 L (11.5-15.3) g/dL Hct 33.2 L (37.0-47.0) % RDW 15.5 H (12.1-15.1) % MPV 11.1 H (7.4-10.4) fL Creatinine 1.1 H (0.5-0.9) mg/dL GFR Calculation 51.0 L (90-130) mL/min Glucose 198 H (65-115) mg/dL A&P Assessment and plan (1) Atherosclerotic heart disease of [place] coronary artery without angina pectoris: Patient with history of coronary artery disease and coronary artery bypass surgery, currently remaining stable. No specific cardiac symptoms. Continue on the current medications. Status: Acute Qualifiers: [place] vs. transplanted heart: [place] heart Qualified Code(s): I25.10 - Atherosclerotic heart disease of [place] coronary artery without angina pectoris Code(s): I25.10 - Atherosclerotic heart disease of [place] coronary artery without angina pectoris (2) ESBL (extended spectrum beta-lactamase) producing bacteria infection: Patient is on antibiotics. Remains afebrile. Clinically seems to be stable Status: Acute Code(s): A49.9 - Bacterial infection, unspecified; Z16.12 - Extended spectrum beta lactamase (ESBL) resistance (3) Acute kidney injury: Kidney function is improving. May continue the careful hydration Status: Acute Code(s): N17.9 - Acute kidney failure, unspecified (4) Hypertension: Currently the blood pressure is a stage II. We will continue to optimize the antihypertensive medication. Status: Acute Qualifiers: Hypertension type: essential hypertension Qualified Code(s): I10 - Essential (primary) hypertension Code(s): I10 - Essential (primary) hypertension (5) Hyperlipidemia: May continue on the current management. Status: Acute Qualifiers: Hyperlipidemia type: mixed hyperlipidemia Qualified Code(s): E78.2 - Mixed hyperlipidemia Code(s): E78.5 - Hyperlipidemia, unspecified (6) Paroxysmal atrial tachycardia: I may increase the dose of the metoprolol to 50 mg twice daily. Continue the other medications as it is Status: Acute Code(s): I47.1 - Supraventricular tachycardia (7) Fracture of tibia and fibula, open: Patient status post open reduction internal fixation. So far she has an uncomplicated course Status: Acute Qualifiers: Encounter type: initial encounter Laterality: right Open fracture type: open type I or II Qualified Code(s): S82.201B - Unspecified fracture of shaft of right tibia, initial encounter for open fracture type I or II; S82.401B - Unspecified fracture of shaft of right fibula, initial encounter for open fracture type I or II Code(s): S82.209B - Unspecified fracture of shaft of unspecified tibia, initial encounter for open fracture type I or II; S82.409B - Unspecified fracture of shaft of unspecified fibula, initial encounter for open fracture type I or II (8) Anemia: The hemoglobin hematocrit remained stable, may continue on the current management Status: Acute Qualifiers: Anemia type: other cause Other causes of anemia: acute posthemorrhagic Qualified Code(s): D62 - Acute posthemorrhagic anemia Code(s): D64.9 - Anemia, unspecified Additional A&P Information Her other problems are #1 history of LV dysfunction #2 Mixed hypercholesterolemia Attestations Medical Necessity Statement*: Patient requires continued hospital stay for close monitoring and further management Coding Level of Care Code Acute Amusement Or Recreation Card Checker for [facility] Fwd Diagnoses Atherosclerotic heart disease of [place] coronary artery without angina pectoris I25.10 [place] vs. transplanted heart: [place] heart ESBL (extended spectrum beta-lactamase) producing bacteria infection A49.9; Z16.12 Acute kidney injury N17.9 Hypertension I10 Hypertension type: essential hypertension Hyperlipidemia E78.2 Hyperlipidemia type: mixed hyperlipidemia Paroxysmal atrial tachycardia I47.1 Fracture of tibia and fibula, open S82.201B; S82.401B Encounter type: initial encounter Laterality: right Open fracture type: open type I or II Anemia D62 Anemia type: other cause Other causes of anemia: acute posthemorrhagic
[2019-09-10 11:11] LABS: Glucose Point of Care 191 mg/dL (70-110)
[2019-09-10 17:15] LABS: Glucose Point of Care 131 mg/dL (70-110)
[2019-09-10] MEDS: metoprolol tartrate 50 mg Tablet PO (18:14)
--- NOTE | 2019-09-10 19:01 | PM.PN ---
Subjective Subjective: Interval history: She is having pain in her right leg after it was bumped by RN accidentally. Still very uncomfortable for her to sleep in the bed with her chronic back pain. Vitals/I&O/Wt Last Vital Signs Temp 96.7 F L 09/10/19 16:00 Pulse 115 H 09/10/19 16:00 Resp 18 09/10/19 18:15 BP 139/89 09/10/19 16:00 Pulse Ox 96 09/10/19 16:00 09/10/19 09/10/19 09/10/19 06:59 14:59 22:59 Intake Total 300 / 1120 1280 / 1280 Output Total 350 / 950 370 / 370 200 / 570 Balance -50 / 170 910 / 910 -200 / 710 Weight last 48 hrs Weight 115.621 kg Physical Exam Const: COMMON NORMALS: oriented x3 HENMT: COMMON NORMALS: oropharynx normal Neck/C-Spine: COMMON NORMALS: no JVD Resp: COMMON NORMALS: normal respiratory effort and clear to auscultation bilaterally AUSCULTATION: clear to auscultation bilaterally Cardio: COMMON NORMALS: no JVD, regular rhythm, S1 normal heart sound, S2 normal heart sound and no murmurs RHYTHM: regular rhythm HEART SOUNDS: S1 normal and S2 normal GI: COMMON NORMALS: normal to inspection, nondistended, normoactive bowel sounds, soft to palpation and non-tender PALPATION: Yes soft Extremity: COMMON NORMALS: no joint enlargement and no pedal edema NARRATIVE EXTREMITY EXAM: Right lower extremity with trace edema, wound appears intact, no bleeding or discharge. Neuro: COMMON NORMALS: oriented x3 and moves all extremities Skin: COMMON NORMALS: no rashes or lesions noted GENERAL SKIN EXAM: no rashes or lesions noted Urinary Catheter Management^: Russell: Cath Placed During This Visit: no Data : 09/10/19 07:14 09/10/19 07:14 A&P Assessment and plan (1) Anemia: Hemoglobin stabilized. Responded well to blood transfusions. LDH is somewhat elevated, but haptoglobin is not low. Peripheral smear was requested. Had 2 BM, but I am told they were discarded before the sample could be collected. Continue PPI twice daily at this time. If hemoglobin remained stable change to p.o. tomorrow. Status: Acute Qualifiers: Anemia type: other cause Other causes of anemia: acute posthemorrhagic Qualified Code(s): D62 - Acute posthemorrhagic anemia Code(s): D64.9 - Anemia, unspecified (2) Urinary tract infection: Continue Primaxin at this time for ESBL UTI. Midline catheter due to difficulties with vascular access. Status: Acute Code(s): N39.0 - Urinary tract infection, site not specified (3) Hyperkalemia: Significantly elevated on arrival. Resolved Status: Acute Code(s): E87.5 - Hyperkalemia (4) Acute kidney injury: Improved. Creatinine level thought to be likely close to baseline Status: Acute Code(s): N17.9 - Acute kidney failure, unspecified (5) Tibia and fibula open fracture, right: Continue symptomatic management of pain. Pending placement to SNF for continued rehabilitation. Currently not on pharmacologic DVT prophylaxis. Continue SCD. Required transfusion, monitor hemoglobin for now. Additional pharmacological prophylaxis would have been desired, however is not possible at this time. Status: Acute Qualifiers: Encounter type: initial encounter Open fracture type: open type I or II Qualified Code(s): S82.201B - Unspecified fracture of shaft of right tibia, initial encounter for open fracture type I or II; S82.401B - Unspecified fracture of shaft of right fibula, initial encounter for open fracture type I or II Code(s): S82.201B - Unspecified fracture of shaft of right tibia, initial encounter for open fracture type I or II; S82.401B - Unspecified fracture of shaft of right fibula, initial encounter for open fracture type I or II Additional A&P Information Type 2 diabetes, sliding scale Hypertension. Continue metoprolol Past history of CVA associated with coronary artery bypass grafting Coronary artery disease, with history of chest discomfort approximately 1 month ago. Nuclear stress test not performed as of yet Hypertension Hyperlipidemia Chronic pain syndrome on chronic narcotics. Discussed with social media campaign manager today, we are trying to arrange for a bariatric bed with air mattress. We will continue her home medications except for NSAIDs. She reports having discomfort before she is due for oxycodone, so after extensive discussion with her of risks and benefits we have agreed to increase the frequency of oxycodone to every 4 hours. She is aware of risks that include worsening of constipation. She still declines additional pain treatment modalities like heating pad, lidocaine patch, capsaicin cream, etc. Attestations Medical Necessity Statement*: Continued mission for assessment management of acute anemia, optimization of medical management for back pain, leg pain. Pending admission to SNF for rehabilitation. Coding Level of Care Code Acute Plastic Card Grader Cardroom for [facility] Fwd Diagnoses Anemia D62 Anemia type: other cause Other causes of anemia: acute posthemorrhagic Urinary tract infection N39.0 Hyperkalemia E87.5 Acute kidney injury N17.9 Tibia and fibula open fracture, right S82.201B; S82.401B Encounter type: initial encounter Open fracture type: open type I or II
[2019-09-10] MEDS: insulin glargine 100 units/1 mL 30 UNIT SUBCUT (20:46)
[2019-09-11] VITALS (9 sets, daily range): BP systolic 129–148; BP diastolic 81–98; PULSE 108–117; RESP 16–22; TEMP 36.4–36.8; O2SAT 93–97
[2019-09-11] MEDS: oxyCODONE 5 mg IR Tab/Cap 15 MG PO ×4 (02:16→16:25)
[2019-09-11 07:04] LABS: Basophils # 0.1 10^3/uL (0.0-0.1); Basophils % 1.4 %; Eosinophils # 0.3 10^3/uL (0.0-0.8); Eosinophils % 5.2 %; Hematocrit 33.4 % (37.0-47.0); Hemoglobin 10.3 g/dL (11.5-15.3); Lymphocytes % 19.7 %; Mean Corpuscular HGB Conc 30.8 g/dL (30.0-36.0); Mean Corpuscular Hemoglobin 28.5 pg (28.0-34.0); Mean Corpuscular Volume 92.5 fL (81-99); Mean Platelet Volume 10.7 fL (7.4-10.4); Monocytes # 0.4 10^3/uL (0.2-0.9); Monocytes % 7.8 %; Neutrophils # 3.3 10^3/uL (1.8-7.7); Neutrophils % 65.5 %; Nucleated Red Blood Cells % 0 %; Platelet Count 193 10^3/cmm (130-400); Red Blood Count 3.61 10^6/uL (4.1-5.3); Red Cell Distribution Width 15.5 % (12.1-15.1)
[2019-09-11 07:09] LABS: Glucose Point of Care 170 mg/dL (70-110)
[2019-09-11 07:12] LABS: Glucose Point of Care 124 mg/dL (70-110)
[2019-09-11] MEDS: metoprolol tartrate 50 mg Tablet PO (08:17)
[2019-09-11] MEDS: sennosides 8.6 mg Tablet PO (08:18)
[2019-09-11] MEDS: docusate sodium 100 mg Capsule PO (08:18)
[2019-09-11] MEDS: dilTIAZem 30 mg Tablet PO ×3 (08:18→16:25)
[2019-09-11] MEDS: pantoprazole 40 mg SDV IVP (08:46)
[2019-09-11 12:03] LABS: Glucose Point of Care 186 mg/dL (70-110)
--- NOTE | 2019-09-11 15:23 | PC.NURSE ---
removed picc line
--- NOTE | 2019-09-11 17:01 | PC.NURSE ---
DISCHARGE SUMMARY PATIENT WAS DISCHARGED TO SNF. PICC LINE WAS PULLED AND ASYMPTOMATIC. DISCHARGE INSTRUCTIONS WERE GIVEN TO NURSING FACILITY AND REPORT WAS GIVEN TO RECEIVING NURSE. PATIENT WAS UNDERSTANDING OF DISCHARGE INSTRUCTIONS AND FOLLOW UP APPOINTMENTS WERE MADE.
--- NOTE | 2019-09-11 18:43 | P.DS_ITS ---
Discharge Providers Date of Admission: 09/02/19 06:30 Date of Discharge: September 11, 2019 Attending Provider at Admission: Lisa Gasca MD Attending Provider at Discharge: Girish Limon Primary Care Provider: Efrain Campo Diagnoses at Discharge Discharge Diagnosis (1) Anemia: Status: Acute Qualifiers: Anemia type: other cause Other causes of anemia: acute posthemorrhagic Qualified Code(s): D62 - Acute posthemorrhagic anemia (2) Urinary tract infection: Status: Acute (3) Hyperkalemia: Status: Acute (4) Acute kidney injury: Status: Acute (5) Tibia and fibula open fracture, right: Status: Acute Qualifiers: Encounter type: initial encounter Open fracture type: open type I or II Qualified Code(s): S82.201B - Unspecified fracture of shaft of right tibia, initial encounter for open fracture type I or II; S82.401B - Unspecified fracture of shaft of right fibula, initial encounter for open fracture type I or II Reason for Visit Reason for Visit: Reason For Visit: OPEN FRACTURE Hospital Course Hospital Course: 59-year-old lady with history of CAD, CVA, DM 2, HTN, HLD, chronic back pain, on chronic opiates, was admitted after a fall at home with resultant open tib-fib fracture. With market hyperkalemia on presentation, potassium 7.6, acute kidney injury, creatinine 2.8, with urinary tract infection for which was treated with Rocephin initially, subsequently with ESBL in urine for which undergone a course of treatment with Primaxin. She underwent open reduction internal fixation procedure on 09/03. Postoperative course was complicated by anemia, suspected due to acute blood loss, although was investigated for GI bleed, though stool samples were not obtained due to exacerbation of constipation. Had difficulty with moving her bowels which only moved after enema. She was maintained on PPI, although massive GI bleeding was not suspected. Due to recurrent anemia, overall requiring 2 units PRBC transfusion was only maintained on SCDs for DVT prophylaxis. She had a d ifficult time adjusting to being out of her own bed due to severe chronic back pain for which she follows with pain clinic. She was otherwise gradually recovering, with good healing of postoperative wound. Her acute kidney injury improved. Midline catheter placed for vascular access for IV antibiotic was removed on completion of course of therapy prior to discharge. She is continued on a course of PPI. Since hemoglobin has been stable, is restarted on low-dose daily aspirin, with follow-up hemoglobin in 3 days. Physical Exam Const: COMMON NORMALS: oriented x3 HENMT: COMMON NORMALS: oropharynx normal Neck/C-Spine: COMMON NORMALS: no JVD Resp: COMMON NORMALS: normal respiratory effort and clear to auscultation bilaterally AUSCULTATION: clear to auscultation bilaterally Cardio: COMMON NORMALS: no JVD, regular rhythm, S1 normal heart sound, S2 nor mal heart sound and no murmurs RHYTHM: regular rhythm HEART SOUNDS: S1 normal and S2 normal GI: COMMON NORMALS: normal to inspection, nondistended, normoactive bowel sounds, soft to palpation and non-tender PALPATION: Yes soft Extremity: COMMON NORMALS: no joint enlargement and no pedal edema NARRATIVE EXTREMITY EXAM: Right lower extremity with trace edema, wound appears intact, no bleeding or discharge. Neuro: COMMON NORMALS: oriented x3 and moves all extremities Skin: COMMON NORMALS: no rashes or lesions noted GENERAL SKIN EXAM: no rashes or lesions noted Urinary Catheter Management^: Russell: Cath Placed During This Visit: yes Urethral Indwelling: Yes Reason for Continuing Indwelling Catheter: Accurate Measurement of Urinary Output in Critically Ill Patients Urinary Catheter Date of Insertion: 09/02/19 Urinary Catheter Time of Insertion: 06:06 Discharge Data Data Completed and Pending: Completed Studies During Hospitalization Category Date Time Status XR chest 1V dm ble [id number] Routine Exams 09/06/19 17:25 Completed XR chest 1V dm ble [id number] Stat Exams 09/02/19 06:20 Completed XR tibia fibula R T 2V [id number] Routine Exams 09/03/19 12:03 Completed XR tibia fibula R T 2V [id number] Stat Exams 09/02/19 05:35 Completed XR tibia fibula R T 2V [id number] Stat Exams 09/03/19 10:03 Completed US echo complete [CV echo complete* [id number]] Stat Ultrasound 09/02/19 10:25 Completed Labs from last 24 hours 09/11/19 09/11/19 09/11/19 11:49 06:50 06:44 WBC 5.0 RBC 3.61 L Hgb 10.3 L Hct 33.4 L MCV 92.5 MCH 28.5 MCHC 30.8 RDW 15.5 H Plt Count 193 MPV 10.7 H Neut % (Auto) 65.5 Lymph % (Auto) 19.7 [place] % (Auto) 7.8 Eos % (Auto) 5.2 Baso % (Auto) 1.4 Neut # (Auto) 3.3 Lymph # (Auto) 1.0 [place] # (Auto) 0.4 Eos # (Auto) 0.3 Baso # (Auto) 0.1 Nucleated RBC % (a uto) 0 Nucleated RBCs # 0.0 POC Glucose 186 170 09/10/19 23:02 WBC RBC Hgb Hct MCV MCH MCHC RDW Plt Count MPV Neut % (Auto) Lymph % (Auto) [place] % (Auto) Eos % (Auto) Baso % (Auto) Neut # (Auto) Lymph # (Auto) [place] # (Auto) Eos # (Auto) Baso # (Auto) Nucleated RBC % (a uto) Nucleated RBCs # POC Glucose 124 Vitals: Last Vital Signs Temp 98.3 F 09/11/19 15:53 Pulse 115 H 09/11/19 15:53 Resp 18 09/11/19 16:25 BP 129/81 09/11/19 15:53 Pulse Ox 93 09/11/19 15:53 Discharge Plan Discharge Patient Disposition: Xfer SNF Condition: Stable Prescriptions: New metoprolol tartrate 50 mg Tablet 50 mg PO BID Qty: 60 RF: 0 diltiazem HCl 30 mg Tablet 30 mg PO QID Qty: 120 RF: 0 pantoprazole 40 mg tablet,delayed release (DR/EC) 40 mg PO BID Qty: 84 RF: 0 aspirin 81 mg tablet,delayed release (DR/EC) 81 mg PO DAILY Qty: 30 RF: 0 Senokot-S 8.6-50 mg tablet 1 tab-cap PO BID Qty: 60 RF: 0 Continued Lantus Solostar U-100 Insulin 100 unit/mL (3 mL) insulin pen 90 unit SUBCUT BID RF: 0 pravastatin 40 mg tablet 40 mg PO BEDTIME RF: 0 tizanidine 4 mg tablet 8 mg PO BEDTIME RF: 0 oxycodone 15 mg tablet 15 mg PO Q6H PRN (Reason: BACK AND ARTHRITIS PAIN) RF: 0 furosemide 20 mg tablet 20 mg PO DAILY RF: 0 pregabalin 200 mg capsule 200 mg PO BID RF: 0 magnesium oxide 250 MG 500 mg PO DAILY RF: 0 Held spironolactone 25 mg tablet 25 mg PO DAILY RF: 0 Hold Instructions: Resume on 09/25/19. Discontinued aspirin 325 mg Tablet 325 mg PO DAILY RF: 0 meloxicam 15 mg tablet 15 mg PO DAILY RF: 0 metoprolol succinate 100 mg tablet extended release 24 hr 100 mg PO DAILY RF: 0 losartan-hydrochlorothiazide 50-12.5 mg tablet 1 tab PO BID RF: 0 Discharge Orders: Discharge Order (Routine); Ordered 09/06/19 Ordered By: Lisa Gonzalez Ambulatory Orders: Complete Blood Count w/Auto (Routine) Timeframe: 3 Days Location: Determined by Patient Ordered By: Girish Limon Referrals: SNF, doctor [Other] - 4-7 days [facility] [Provider Group] - 4-7 days [facility] [Outside] Efrain Campo [Primary Care Provider] - (After DC from SNF) Juliette Gallardo MD [Physician] - (3 weeks) Lisa Gasca MD [Physician] - 09/24/19 10:00 am (Please call my office, , for an appointment in approximately 2 weeks time.) Discharge Diet: Diabetic Discharge Activity: Limit activity as instructed, Use walker/crutches as instructed and As per PT/OT instructions Patient Instructions: Metoprolol (By mouth), Diltiazem (By mouth), Aspirin (By mouth), Pantoprazole (By mouth), Hypertension, Atrial Tachycardia (DC) Activity Restrictions/Additional Instructions: PT for gait training, strengthening, and range of motion. [place] may be removed from incisions approximately 2 weeks following date of surgery. Touchdown weightbearing right lower extremity. Dressing change PRN. Maintain fracture boot at all times. Continue to monitor glucose 4 times daily. Monitor blood pressure 3 times a day. Record values. Avoid NSAIDs due to acute kidney injury in the hospital. Avoid constipation. 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
== END 2019-09-11 17:21 | disposition skilled nursing facility (03) | DRG 493 ==
LOC: ER 05:37 → MEDSURG 06:52 → ICU 07:42 → MEDSURG 09-04 15:52
PROVIDERS: Emergency Medicine; Internal Medicine; Admitting Provider Specialist; Emergency Provider Emergency Medicine; Visit Provider Internal Medicine
PROC: 0QSK04Z Reposition Left Fibula with Internal Fixation Device, Open Approach (ICD-10-PCS; CPT 27828; principal; 2019-09-03 07:00)
DX: S82.201B Unspecified fracture of shaft of right tibia, initial encounter for open fracture type I or II (principal); N17.9 Acute kidney failure, unspecified; N39.0 Urinary tract infection, site not specified; D62 Acute posthemorrhagic anemia; Z16.12 Extended spectrum beta lactamase (ESBL) resistance; S82.401B Unspecified fracture of shaft of right fibula, initial encounter for open fracture type I or II; E87.5 Hyperkalemia; I25.10 Atherosclerotic heart disease of native coronary artery without angina pectoris; Z86.73 Personal history of transient ischemic attack (TIA), and cerebral infarction without residual deficits; M54.9 Dorsalgia, unspecified; E11.9 Type 2 diabetes mellitus without complications; I10 Essential (primary) hypertension; Z79.891 Long term (current) use of opiate analgesic; W19.XXXA Unspecified fall, initial encounter; Y92.009 Unspecified place in unspecified non-institutional (private) residence as the place of occurrence of the external cause; B96.89 Other specified bacterial agents as the cause of diseases classified elsewhere; Z95.5 Presence of coronary angioplasty implant and graft; G89.4 Chronic pain syndrome; Z91.81 History of falling; Z87.891 Personal history of nicotine dependence; R00.0 Tachycardia, unspecified; E78.2 Mixed hyperlipidemia
CPT/HCPCS: 12345; 36415; 36416; 36430; 45915; 51702; 71045; 73590; 76000; 80048; 80053; 80076; 80500; 81001; 82550; 82553; 82962; 83010; 83615; 83735; 84484; 85014; 85018; 85025; 85610; 85730; 86850; 86900; 87077; 87086; 87186; 93005; 93306; 96360; 96361; 96365; 96366; 96372; 96374; 96375; 97110; 97163; 97167; 97530; 97535; 97760; 99284; C1713; C1751; C9113; J0610; J0690; J0696; J0743; J1170; J1815; J2270; J3010; J3475; J3490; J7030; J7050; P9016

== ENCOUNTER → 2019-09-24 10:46 | Outpatient (BNVA) | payer OTHER, SELFPAY | PROVIDERS: Family Provider Student in an Organized Health Care Education/Training Program; PCP Student in an Organized Health Care Education/Training Program; Visit Provider Specialist | DX: Z48.89 Encounter for other specified surgical aftercare (principal) | CPT/HCPCS: 73590 ==

== ENCOUNTER → 2019-10-08 14:43 | Outpatient (BNVA) | payer OTHER, SELFPAY | PROVIDERS: Family Provider Student in an Organized Health Care Education/Training Program; PCP Student in an Organized Health Care Education/Training Program; Visit Provider Specialist | DX: Z48.89 Encounter for other specified surgical aftercare (principal); S82.831A Other fracture of upper and lower end of right fibula, initial encounter for closed fracture; X58.XXXA Exposure to other specified factors, initial encounter | CPT/HCPCS: 73590 ==

== ENCOUNTER → 2019-12-19 13:42 | Outpatient (BNVA) | payer OTHER, SELFPAY | PROVIDERS: Family Provider Student in an Organized Health Care Education/Training Program; PCP Student in an Organized Health Care Education/Training Program; Visit Provider Specialist | DX: S82.201B Unspecified fracture of shaft of right tibia, initial encounter for open fracture type I or II (principal); S82.401B Unspecified fracture of shaft of right fibula, initial encounter for open fracture type I or II; X58.XXXA Exposure to other specified factors, initial encounter | CPT/HCPCS: 73590 ==

== ENCOUNTER → 2020-01-29 14:39 | Outpatient (BNVA) | payer OTHER, SELFPAY | PROVIDERS: Family Provider Student in an Organized Health Care Education/Training Program; PCP Student in an Organized Health Care Education/Training Program; Visit Provider Nurse Practitioner | DX: G89.29 Other chronic pain (principal); M54.9 Dorsalgia, unspecified; E11.40 Type 2 diabetes mellitus with diabetic neuropathy, unspecified; Z79.891 Long term (current) use of opiate analgesic | CPT/HCPCS: 99213 ==

== ENCOUNTER → 2020-03-25 13:51 | Outpatient (BNVA) | payer OTHER, SELFPAY | PROVIDERS: Family Provider Student in an Organized Health Care Education/Training Program; PCP Student in an Organized Health Care Education/Training Program; Visit Provider Anesthesiology | DX: G89.29 Other chronic pain (principal); M54.42 Lumbago with sciatica, left side; M54.41 Lumbago with sciatica, right side; M54.9 Dorsalgia, unspecified; M19.90 Unspecified osteoarthritis, unspecified site; Z79.891 Long term (current) use of opiate analgesic | CPT/HCPCS: 99213; 99214 ==

== ENCOUNTER → 2020-05-23 13:17 | Outpatient (BNVA) | payer OTHER, SELFPAY | PROVIDERS: Family Provider Student in an Organized Health Care Education/Training Program; PCP Student in an Organized Health Care Education/Training Program; Visit Provider Anesthesiology | DX: G89.29 Other chronic pain (principal); M54.41 Lumbago with sciatica, right side; M54.42 Lumbago with sciatica, left side; M54.9 Dorsalgia, unspecified; M19.90 Unspecified osteoarthritis, unspecified site; E11.40 Type 2 diabetes mellitus with diabetic neuropathy, unspecified; Z79.891 Long term (current) use of opiate analgesic | CPT/HCPCS: 99213; 99214 ==

== ENCOUNTER → 2020-07-30 09:46 | Outpatient (BNVA) | payer OTHER, SELFPAY | PROVIDERS: Family Provider Student in an Organized Health Care Education/Training Program; PCP Student in an Organized Health Care Education/Training Program; Visit Provider Nurse Practitioner | DX: G89.29 Other chronic pain (principal); M54.9 Dorsalgia, unspecified; M19.90 Unspecified osteoarthritis, unspecified site; M25.50 Pain in unspecified joint; E11.40 Type 2 diabetes mellitus with diabetic neuropathy, unspecified; Z79.891 Long term (current) use of opiate analgesic | CPT/HCPCS: 99214 ==

== ENCOUNTER → 2020-09-26 12:42 | Outpatient (BNVA) | payer OTHER, SELFPAY | PROVIDERS: Family Provider Student in an Organized Health Care Education/Training Program; PCP Student in an Organized Health Care Education/Training Program; Visit Provider Anesthesiology | DX: G89.29 Other chronic pain (principal); M54.9 Dorsalgia, unspecified; E11.40 Type 2 diabetes mellitus with diabetic neuropathy, unspecified; M19.90 Unspecified osteoarthritis, unspecified site; Z79.891 Long term (current) use of opiate analgesic | CPT/HCPCS: 99213 ==